=== PATIENT | female | born 1975 | race Caucasian/White ===

== ENCOUNTER 2017-05-15 06:39 | Inpatient (IN) | payer OTHER ==
[~2017-05-15] VITALS: Ht 182.9 cm; Wt 122.0 kg
--- NOTE | 2017-05-16 07:58 | HP ---
[facility] [address], [place] [address] Signed ADMISSION DATE: 05/15/2017 REASON FOR ADMISSION: Free intraabdominal air, probable perforated diverticulitis. HISTORY OF PRESENT ILLNESS: This 41-year-old obese woman is a chronic alcoholic, drinking at least 1 to 1-1/2 pints of vodka daily. On Saturday (today is Saturday), she began having vague abdominal pain mostly in the low pelvis. This worsened today to be inclusive of the right side of the abdomen. She presented to the emergency room, where she was evaluated by Dr. Durán, emergency room physician who found her to have an elevated white count of 15.7. Imaging studies were obtained including CT of the abdomen and pelvis, which showed numerous diverticula, pericolonic fat stranding, and free intraperitoneal air consistent with perforated diverticulitis. She is admitted for further evaluation and care. PAST MEDICAL HISTORY: Primarily significant for chronic alcoholism as well as smoking on a daily basis. She denies any prior history of abdominal surgery. She does note possible umbilical hernia. ALLERGIES: She has no known drug allergies. Last physician she saw is Dr. Guero Ribeiro, but has not seen him in at least 3 years. MEDICATIONS: She takes no medications chronically. REVIEW OF SYSTEMS: She denies any shortness of breath or chest pain. She has had no dysphagia or dysuria. Denies any hematemesis or blood per rectum. She has never had a colonoscopy. PHYSICAL EXAMINATION: GENERAL: Obese white woman who is quite anxious and unhappy. She does not show tremulousness or signs of alcohol withdrawal proper. HEENT: Her mucous membranes are dry. She is on her second liter of lactated Ringer's solution being infused. Trachea is midline. There is no cervical adenopathy. CHEST: Shows normal respiratory excursion without tachypnea. HEART: Regular without murmur. ABDOMEN: Obese and soft. She has not had generalized rigidity in any sense. Does have mild tenderness in the lower abdomen. I do not detect an umbilical hernia, but CT scan was reviewed, which confirmed a small umbilical hernia. CT scan was additionally reviewed confirming the findings as previously described including diverticular changes, inflammatory changes of the pelvis and sigmoid, and some free intraperitoneal air. Both Electronically Signed By: LEATHA BEAVER MD 05/16/17 0758 PATIENT NAME: OWEN ATKINS HISTORY AND PHYSICAL DATE OF : 75 PHYSICIAN: LEATHA BEAVER MD REPORT #: [id number] REPORT IS CONFIDENTIAL AND NOT TO BE RELEASED WITHOUT AUTHORIZATION [facility] [address], [place] [address] Signed kidneys are intact and the liver appears normal. EXTREMITIES: No clubbing, cyanosis, or edema. LABORATORY DATA: Show a white count of 15.7, hematocrit 39.6, and platelets 218,000. Chem profile, sodium of 131, potassium 3.3, chloride 94, and CO2 of 21. Magnesium is pending. Total bilirubin is 1.9, AST 40, ALT 39, alkaline phosphatase 99, albumin is 4.0, globulin 3.7, and lipase 7. Urinalysis shows a specific gravity of 1.022, otherwise normal. ASSESSMENT: The patient has perforated diverticulitis, most likely. The possibility of other perforated viscus is considered as well, but given her diverticular disease, inflammatory changes of the pelvic mesentery and free intraabdominal air, most likely this represents perforated diverticulitis. I discussed with her the pathophysiology of this problem as well as other lesions that could cause free intraperitoneal including perforated ulcer and so on. Discussed with her options of management. We also discussed that she may require urgent resection of the sigmoid with end colostomy with takedown of the colostomy in the future. We discussed a more favored approach in my experience of laparoscopy with pelvic and peritoneal washout and placement of drain. This would require that the inflammatory process not be giovana fecal peritonitis. If that were the case, laparotomy and open resection with end colostomy as described would be required. Additionally discussed that if this was a perforated ulcer, then repair and remedy of that would be needed as well. She understands this however, disheartening it is to consider the idea of a colostomy even if temporary, but agrees to proceed. In her situation of chronic alcoholism and smoking, she has increased risk of various complications, most notably alcohol withdrawal syndrome. She will be treated with Ativan at this time following the consent being obtained so as to minimize that possibility. Hospitalist consultation may ultimately be required as well. Additional fluid may be required. She is getting a second liter of fluid bolus at this time. Electronically Signed By: LEATHA BEAVER MD 05/16/17 0758 PATIENT NAME: OWEN ATKINS HISTORY AND PHYSICAL DATE OF : 75 PHYSICIAN: LEATHA BEAVER MD REPORT #: [id number] REPORT IS CONFIDENTIAL AND NOT TO BE RELEASED WITHOUT AUTHORIZATION [address] [address] Signed Laetha Beaver MD JM/MODL /[id number] cc: Dr. Luis Armando Ribeiro MD Electronically Signed By: LEATHA BEAVER MD 05/16/17 0758 PATIENT NAME: OWEN ATKINS HISTORY AND PHYSICAL DATE OF : 75 PHYSICIAN: LEATHA BEAVER MD REPORT #: [id number] REPORT IS CONFIDENTIAL AND NOT TO BE RELEASED WITHOUT AUTHORIZATION
--- NOTE | 2017-05-16 14:44 | OR ---
[facility] [address] [place], [place] [address] Signed DATE OF OPERATION: 05/15/2017 SURGEON: Leatha Beaver MD PREOPERATIVE DIAGNOSIS: Free intraabdominal air, probable perforated diverticulitis. POSTOPERATIVE DIAGNOSES: Generalized peritonitis with inflammatory fluid related to perforated diverticulitis, Hinchey stage III. PROCEDURE: 1. Laparoscopy with drainage of peritoneal abscess fluid. 2. Laparoscopic peritoneal lavage and placement of drain, left paracolic space. SURGEON: Leatha Beaver MD ANESTHESIA: General endotracheal (Korey Kinsey CRNA). INDICATION: This morbidly obese alcoholic white woman, presented to the emergency room with severe generalized abdominal pain. Her symptoms began on Saturday (day of operation Saturday) with lower abdominal pain, which has worsened over time to the point she could no longer stand it. She was found to have a white count of 15.[address] scan of the abdomen was performed showing free intraperitoneal air and inflammatory changes of the mesentery of the sigmoid as well as numerous diverticula. She was considered likely to have perforated diverticulitis. She has been fluid resuscitated given intravenous antibiotics and so forth as well as alcohol withdrawal prophylaxis and is to go to operation for laparoscopic evaluation, peritoneal lavage and drainage as able depending on extent of disease mindful that she may require sigmoid resection with end colostomy, particularly with a Hinchey stage IV problem as noted. She and her understand this and also understand the possibility of failure of a laparoscopic washout technique. It is likely that a sigmoid resection with primary anastomosis would be undertaken in the future, but for now control of sepsis is the primary goal. FINDINGS: Electronically Signed By: LEATHA BEAVER MD 05/16/17 1444 PATIENT NAME: OWEN ATKINS OPERATIVE REPORT DATE OF : 75 PHYSICIAN: LEATHA BEAVER MD REPORT #: [id number] REPORT IS CONFIDENTIAL AND NOT TO BE RELEASED WITHOUT AUTHORIZATION [facility] [address] [place], [place] [address] Signed She did have apparent material located throughout the abdomen actually with no sign of interloop adhesions. Indeed, the sigmoid colon was firm, fixed and likely the source of the perforation though actual free-flowing of stool and so forth was not forthcoming (therefore not Hinchey stage IV). Irrigation and washout of the abdomen were able to be undertaken as well as placement of drain, which was placed between the sigmoid and the bladder, which appeared to be a dominant problem. There were no other findings of concern. Notably, the cecum was mobile, and located towards the midline. DESCRIPTION OF PROCEDURE: The patient was brought to the operating room, given a general endotracheal anesthetic. A Gutierrez catheter was placed. Sequential compression device stockings were used and heparin subcutaneously administered. Antibiotic, she had been given was meropenem. The abdomen was prepared with chlorhexidine solution and draped sterilely. Initially, an infraumbilical incision was made, but found that she had an umbilical hernia and rather than transgressed that area, an incision was made cephalad to the umbilicus and the abdomen entered with a Peggy cannula technique allowing for pneumoperitoneum to level of 14 mmHg with carbon dioxide gas. Intraabdominal inspection showed purulent material in the lower abdomen dominantly, suctioned free for Gram stain and cultured. Examination of the upper abdomen showed no dense adhesions. The liver appeared normal as did the gallbladder. The omentum was quite generous. Examination of the lower abdomen showed inflammatory changes of the sigmoid and diverticular stigmata, but no sign of fecal contamination proper. An epigastric incision was made and the camera replaced at that site and with one hand manipulation through the umbilical (supraumbilical) port site, the omentum was moved about and body position change made with adjustment of the table to allow for better visualization. Subsequently, a right lower quadrant 5 mm port was placed and I went to the patient's right side of the abdomen and did two hand manipulation of the omentum and sigmoid area. Irrigation was used to clear the infected appearing inflammatory fluid. This included the pelvis. The sigmoid was dense, firm, inflamed and no free-flowing enteric contents were noted. It was ultimately found that adherence to the left bladder horn was found. With blunt dissection, this was , but no forthcoming abscess fluid particularly. The irrigation was then undertaken of the upper abdomen, both on the left upper and right upper quadrant areas clearing the inflammatory fluid completely. Through right side at the 5 mm trocar site, a 7 mm flat Ryder drain was placed and attenuated between the sigmoid and the bladder inferiorly. Close inspection of the mesentery of the sigmoid showed no sign of abscess or undrained fluid collection. The small bowel loops were normal. The cecum was rather floppy and free. The terminal ileum was normal. The appendix was not visualized. The trocars removed under direct visualization after complete lavage of the abdomen. The Electronically Signed By: LEATHA BEAVER MD 05/16/17 1444 PATIENT NAME: OWEN ATKINS OPERATIVE REPORT DATE OF : 75 PHYSICIAN: LEATHA BEAVER MD REPORT #: [id number] REPORT IS CONFIDENTIAL AND NOT TO BE RELEASED WITHOUT AUTHORIZATION [facility] [address] [place] [address] Signed drain was secured to the skin with nylon suture. The supraumbilical fascial incision was reapproximated with interrupted 0 Vicryl suture. All wounds were copiously irrigated with saline solution and skin closed with interrupted 3-0 Vicryl. Steri-Strips were applied. She was transferred to recovery room in good condition having suffered no complication. BLOOD LOSS: Minimal. MD IVAN Cardozo/VERNONL /[id number] cc: Dr. Durán [facility] Ryan Ribeiro MD Electronically Signed By: LEATHA BEAVER MD 05/16/17 1444 PATIENT NAME: OWEN ATKINS OPERATIVE REPORT DATE OF : 75 PHYSICIAN: LEATHA BEAVER MD REPORT #: [id number] REPORT IS CONFIDENTIAL AND NOT TO BE RELEASED WITHOUT AUTHORIZATION
--- NOTE | 2017-05-18 20:06 | DS ---
[facility] [address] [place], [place] [address] Signed ADMISSION DATE: 05/15/2017 DISCHARGE DATE: 05/17/2017 REASON FOR ADMISSION: This 41-year-old white woman had three days of increasing generalized abdominal pain. She presented to the emergency room where a CT scan was performed showing generalized free air and suspicion of perforated diverticulitis. She was admitted for further evaluation and care. PAST MEDICAL HISTORY: Of special note, her past medical history is significant for chronic alcoholism for which she takes 1/2 pints of vodka daily as well as persistent smoking. PHYSICAL EXAMINATION: GENERAL: Large obese, white woman, who is anxious and quite uncomfortable. HEENT: Mucous membranes are dry and trachea midline. CHEST: Clear. HEART: Regular without murmur. ABDOMEN: Obese, but without sign of ascites, marked tenderness throughout. EXTREMITIES: Showed no clubbing, cyanosis, or edema. LABORATORY DATA: White count was elevated. HOSPITAL COURSE: She has fluids resuscitated given intravenous antibiotics, parenteral pain medication, DVT prophylaxis and so forth. She underwent laparoscopy where she was found to have generalized peritonitis with purulent material for which she underwent laparoscopic drainage and lavage. Close inspection confirmed that the sigmoid colon was the likely source of the problem. There is no evidence of perforated viscus, otherwise. She did not have a Hinchey stage IV appearance. Therefore, a drainage procedure with a drain placed to the lateral aspect of the sigmoid where the most intense inflammation was noted, was undertaken. She immediately postoperatively felt quite a bit better. Broad-spectrum antibiotic meropenem was used. Transition to Cipro and Flagyl was initiated. Consultation with medical moth proofer (hospitalist), Dr. Sutton was undertaken, who outlined a rational and thoughtful plan for alcohol detoxification. This included oral Librium and other agents. By the second postoperative day, the patient was feeling quite well and demanded to be Electronically Signed By: LEATHA BEAVER MD 05/18/172005 PATIENT NAME: OWEN ATKINS DISCHARGE SUMMARY DATE OF : 75 PHYSICIAN: LEATHA BEAVER MD REPORT #: [id number] REPORT IS CONFIDENTIAL AND NOT TO BE RELEASED WITHOUT AUTHORIZATION [facility] [address] [place], [place] [address] Signed able to smoke. This was not allowed based on medical and the hospital policy ideals. She was convinced to stay and transition to the regular nursing floor where she might be discharged tomorrow with oral antibiotics, but by the end of the afternoon, but no longer be cooperative in this way. In my own opinion, she did not seem to have delirium in anyway, only a strong will and incessant desire to smoke and probably also drink alcohol. She left against medical advice. The risks were explained to her and to her . Later her returned to the hospital and I discussed with her more fully the situation. She does have a drain in place. I did write for prescriptions of Percocet #30 as well as Augmentin 500 mg b.i.d. #14. I had intended Cipro and Flagyl, but given her proclivity for persistent alcohol use, Flagyl will be an unwise choice. Given the disulfiram like reaction, she might endure with persistent alcohol intake. They are welcome and encouraged to return if and when they should change her mind for further inpatient management. I will see her in the office in 1-2 weeks for removal of the drain in the meantime however. DISCHARGE DIAGNOSES: 1. Perforated diverticulitis with generalized peritonitis and purulent material, but without fecal contamination. 2. Status post laparoscopic evaluation including peritoneal lavage and placement of drain. 3. Chronic alcoholism. 4. Incessant and chronic tobacco use. 5. Obesity. MD IVAN Cardozo/MODL /[id number] Electronically Signed By: LEATHA BEAVER MD 05/18/172005 PATIENT NAME: OWEN ATKINS DISCHARGE SUMMARY DATE OF : 75 PHYSICIAN: LEATHA BEAVER MD REPORT #: [id number] REPORT IS CONFIDENTIAL AND NOT TO BE RELEASED WITHOUT AUTHORIZATION [address] [address] Signed cc: rBina Sutton MD Electronically Signed By: LEATHA BEAVER MD 05/18/172005 PATIENT NAME: OWEN ATKINS DISCHARGE SUMMARY DATE OF : 75 PHYSICIAN: LEATHA BEAVER MD REPORT #: [id number] REPORT IS CONFIDENTIAL AND NOT TO BE RELEASED WITHOUT AUTHORIZATION
== END 2017-05-17 15:30 | disposition left against medical advice (07) | DRG 392 ==
LOC: ED 06:39 → CCU 09:41
PROVIDERS: ADMIT Surgery
PROC: 0W9G40Z Drainage of Peritoneal Cavity with Drainage Device, Percutaneous Endoscopic Approach (ICD-10-PCS; principal; 2017-05-16)
PROC: 3E1M38Z Irrigation of Peritoneal Cavity using Irrigating Substance, Percutaneous Approach (ICD-10-PCS; 2017-05-16)
DX: K57.20 Diverticulitis of large intestine with perforation and abscess without bleeding (principal); F10.20 Alcohol dependence, uncomplicated; E66.9 Obesity, unspecified; F17.200 Nicotine dependence, unspecified, uncomplicated; E83.42 Hypomagnesemia; E87.6 Hypokalemia; Z53.21 Procedure and treatment not carried out due to patient leaving prior to being seen by health care provider; Z68.36 Body mass index [BMI] 36.0-36.9, adult
CPT/HCPCS: 00320; 36415; 74177; 80048; 80053; 81001; 82247; 82465; 83615; 83690; 83735; 84100; 84478; 84550; 84703; 85025; 85610; 87070; 87075; 87205; 94640; 96361; 96365; 96375; 96376; 99291; 99406; J1170; J1644; J2060; J2185; J2250; J2270; J2370; J2405; J2704; J3010; J3360; J3411; J3475; J3480; J7030; J7060; J7120; Q9967

== ENCOUNTER 2017-06-23 03:16 | Inpatient (IN) | payer OTHER ==
[~2017-06-23] VITALS: Ht 182.9 cm; Wt 116.8 kg
--- NOTE | 2017-06-23 06:16 | NUR ---
42YR OLD WOMAN ADMITTED FROM ER VIA STRETCHER TO ROOM 114 ACCOMPANIED BY . ASSISTED INTO BED AND POSITIONED FOR COMFORT WITH PILLOWS, ORIENTED TO ROOM AND CALL LIGHT, ORDERS NOTED.
--- NOTE | 2017-06-23 06:29 | NUR ---
PT WAS MEDICATED WITH MORPHINE 4MG IV FOR 10/10 PAIN IN LEFT LOWER BACK. DESCRIBES BEING STUCK WITH ICE PICK. REPOSITONED FOR COMFORT WITH PILLOWS. SITTING AT BEDSIDE. DENIES FURTHER NEEDS.
--- NOTE | 2017-06-23 06:36 | NUR ---
REPORTS PAIN IS BETTER, SITTING UP ON EDGE OF BED NOW TALKING WITH . CONTINUES TO HAVE MILD NAUSEA BUT DENIES NEED FOR MEDICATION AT THIS TIME. SBA INTO BATHROOM TO VOID 300ML DARK YELLOW URINE WITH RED BLOOD, STATES SHE STARTED HER PERIOD. PADS PROVIDED. RATES PAIN 6/10 NOW. CALL LIGHT IN EASY REACH.
--- NOTE | 2017-06-23 07:43 | NUR ---
PATIENT WIDE AWAKE IN BED, POSITION. APPEARS RESTLESS. RATES PAIN 8/10 ON PAIN SCALE. ADMINISTERED 4MG IV MORPHINE. PATIENT REQUESTING MORE ZOFRAN, TOO SOON TO ADMINISTER MORE. APPEARS VERY ANXIOUS. DISCUSSED SALINAS PLACEMENT AND PATIENT STATED " I JUST CAN'T RIGHT NOW, LAST TIME THEY PLACED IT IN SURGERY". WILL DISCUSS POC WITH DR. BEAVER.
--- NOTE | 2017-06-23 08:00 | NUR ---
PATIENT APPEARS RESTLESS AND ANXIOUS, COMPLAINING OF PAIN AND NAUSEA. REPORTED PATIENT'S COMPLAINTS VIA TELEPHONE. ADMINISTERING MORPHINE Q2HRS, APPEARS EFFECTIVE SHORT TERM ABOUT 15 MIN THEN PATIENT IS COMPLAINING OF PAIN AGAIN. NEW ORDERS FOR NICOTINE PATCH, SEMICONDUCTOR WAFER INSPECTOR MORPHINE, PHENERGAN. ALSO MAY HOLD OFF ON PLACING SALINAS CATHETER. VS STABLE. CONT PULSE OX ON. PATIENT SATURATION 95% ON RA. PATIENT RETURNED DEMONSTRATION WITH IS.
--- NOTE | 2017-06-23 08:04 | NUR ---
PATIENT IN BED, WHITEBOARD UPDATED, ROOM TIDIED. PATIENT STATES SHE DOES NOT NEED ANYTHING AT THIS TIME.
--- NOTE | 2017-06-23 09:01 | NUR ---
SET OUT TOOTHBRUSH, WASHCLOTH, ETC. IN BATHROOM FOR THE NEXT TIME PATIENT GETS UP.
--- NOTE | 2017-06-23 10:00 | NUR ---
STARTED SECOND IV TO RIGHT WRIST, 20 G. TOLERATED WELL. RUNNING MERREM THROUGH SECOND LINE.
--- NOTE | 2017-06-23 12:19 | NUR ---
PATIENT UP TO BATHROOM, PAIN WELL CONTROLLED WITH JEWELLERY DESIGNER. APPEARS LESS ANXIOUS. STATES " I ALREADY FEEL LESS CRANKY WITH THE NICOTINE PATCH ON". PATIENT REPORTS ITS BEEN 36 DAYS SINCE LAST DRINK OF ALCOHOL. 02 SATURATION 94% RA
--- NOTE | 2017-06-23 16:40 | NUR ---
PATIENT TOLERATING BROTH AND YOGURT WELL. MAY HAVE CLEAR AND FULL LIQUIDS THAT POOR EASY WITH NO FIBER. PAIN WELL CONTROLLED WITH TODDLER CAREGIVER. PATIENT USING IS Q1 HR WHILE AWAKE. FAMILY AT BEDSIDE. APPEARS CALM AND COMFORTABLE.
--- NOTE | 2017-06-23 19:00 | NUR ---
BEDSIDE REPORT RECEIVED FROM KYLIE BOYER. PT AWAKE, SITTING UP IN BED. IV MERREM INFUSING, PT USING PLASTIC BLOCK BOILER RELINER PUMP, STATES PAIN IS "GOOD". SPO2 95%, HR 95. WILL CONTINUE TO MONITOR. CALL LIGHT IN REACH.
--- NOTE | 2017-06-23 19:01 | NUR ---
RECHECKED TEMP AXILLIARY 99.1 PATIENT SKIN COOL TO TOUCH. PATIENT REPORTS DRINKING WARM BROTH IN REGARDS TO TEMP 102 THAT WAS CHARTED WITH VITAL SIGNS.
--- NOTE | 2017-06-23 20:10 | NUR ---
ASSISTED PT TO RESTROOM FOR 300 ML VOID, PT TOLERATED WELL. PT ANXIOUS. ASSESSMENT COMPLETE. PT BACK IN BED, PTS LUNGS CLEAR THROUGHOUT ALL LOBES, IVF AND MARKETING PROJECT COORDINATOR INFUSING WNL, LINES FLUSH WELL. BOWEL TONES HYPOACTIVE, PRESENT THROUGHOUT. ABDOMEN TENDER IN LLQ, SOFT. PT DENIES NAUSEA. PT STATES PAIN IS 3/10 IN LOWER BACK, LEFT SIDE. PT STATES PAIN IS TOLERABLE. CSM INTACT BILATERALLY UPPER AND LOWER EXTREMITIES, NO EDEMA NOTICED. PT HAS CALL LIGHT IN REACH, LYING IN BED, RT TO DELIVER BREATHING TREATMENT.
--- NOTE | 2017-06-23 20:16 | NUR ---
VITALS AND I&OS DONE AND CHARTED. PT HAS A TEMP OF 101.3 AND B\P OF177/89. INFORMED HER RN JAKE. GOT HER FRESH WATER . BEDSIDE TABLE AND CALL LIGHT WITHIN REACH.
--- NOTE | 2017-06-23 20:25 | NUR ---
PHONE CALL TO DR. BEAVER TO UPDATE ON PT, DAY SHIFT STATED TEMPERATURE WAS 102, REASSESSED 101.[address] BEAVER ORDERED TYLENOL 650 MG Q64 PRN FEVER. UPDATED ON BP 177/89 MAP 112. NO ADDITIONAL ORDERS.
--- NOTE | 2017-06-23 20:57 | NUR ---
PT COMPLAINING OF NAUSEA AT THIS TIME, REQUESTING PHENERGEN, STATES ZOFRAN DOES NOT WORK. 12.5 MG PHENERGEN ADMINISTERED IN 20 ML NS DILUTION. PT TOLERATED WELL, STATES SHE ALREADY FEELS BETTER. PT DOING BREATHING TREATMENT AT THIS TIME, CALL LIGHT IN REACH.
--- NOTE | 2017-06-23 22:23 | NUR ---
PT RESTING IN BED, ANTIBIOTIC INFUSING WNL. PT ANXIOUS, NICOTINE PATCH HAS FALLEN OFF, WILL REPLACE. PT CONTINUES TO VOID CONSISTENTLY, STATES SOME PAIN WITH URINATION "CRAMP". PT STATES SHES NOT ABLE TO CONTROL STREAM. WILL CONTINUE TO MONITOR, LIGHTS OFF IN ROOM, CALL LIGHT IN REACH.
--- NOTE | 2017-06-23 22:30 | NUR ---
NICOTINE PATCH IN PLACE, EMPTIED PT'S COMMODE, 1500 ML URINE OUT, HEMATURIA NOTED. PT BACK IN BED, DROWSY, LIGHTS OFF IN ROOM. IVF AND ANTIBIOTIC INFUSING WNL. CALL LIGHT IN REACH.
--- NOTE | 2017-06-24 01:29 | NUR ---
VITALS AND I&OS DONE. PT STATES SHE IS CRANKY , TIRED AND HUNGRY. I ASKED HER IF SHE WANTED SOME JELLO? SHE SAID YES PLEASE. I GAVE HER TWO JELLOS. BEDSIDE TABLE AND CALL LIGHT WITHIN REACH.
--- NOTE | 2017-06-24 01:32 | NUR ---
IN PT ROOM, IV MERREM INFUSION COMPLETE. PT DROWSY, BACK TO SLEEP AFTER RN SALINE LOCKED IV IN RIGHT HAND. NO ADDITIONAL REQUESTS AT THIS TIME, CALL LIGHT IN REACH.
--- NOTE | 2017-06-24 01:50 | NUR ---
PT ASSESSMENT COMPLETE. PT STATES SHE IS STILL UNCOMFORTABLE, HOT, UNABLE TO SLEEP. GAVE PT COOL WASH CLOTH AND ICE PACK. WHEEZES HEARD THROUGHOUT PT'S LUNGS, PT DENIES SOB. BOWEL TONES ACTIVE, ABDOMEN SOFT, TENDERNESS NOTED IN LEFT UPPER QUADRANT. BROUGHT PT FRESH ICE WATER, NO ADDITIONAL REQUESTS AT THIS TIME, CALL LIGHT IN REACH, LIGHTS OFF IN ROOM.
--- NOTE | 2017-06-24 02:36 | NUR ---
NEW BAG OF IVF HUNG, PT AWAKENS WITH RN ENTERING ROOM, SPO2 95% ON ROOM AIR. PT BACK TO SLEEP, SNORING, CALL LIGHT IN REACH. LIGHTS BACK OFF IN ROOM.
--- NOTE | 2017-06-24 04:53 | NUR ---
IN PT ROOM FOR ANTIBIOTIC ADMINISTRATION. PT AWAKENS TO VOICE, UP TO COMMODE FOR VOID, EMPTIED COMMODE. PT STATES URINATION IS BECOMING MORE COMFORTABLE, CONTINUES TO HAVE AIR WITH URINATION. PT NAUSEOUS, VOMITS 100 MLS, ADMINISTERED 12.5 MG PRN PHENERGEN. PT COMPLAINING OF BRISCOE, STATES THAT TYLENOL HELPED, ADMINISTERED PRN TYLENOL. PT BACK IN BED, ASSESSMENT COMPLETE AT THIS TIME, LUNGS SOUND CLEAR THROUGHOUT ALL LOBES, PT 98% ON ROOM AIR, BOWEL TONES ACTIVE THROUGHOUT ALL QUADRANTS, ABDOMEN SOFT, PT STATES PAIN IS 2/10 IN LEFT SIDE, BACK. CALL LIGHT GIVEN TO PT. LIGHTS OFF IN ROOM. ICE WATER BROUGHT TO PT. IVF AND ANTIBIOTICS INFUSING WNL, IV SITES FLUSH WELL.
--- NOTE | 2017-06-24 06:44 | NUR ---
PT USING RESEARCH NEUROPSYCHOLOGIST PUMP THROUGHOUT NIGHT, FEBRILE AT BEGINNING OF SHIFT AND THROUGHOUT PREVIOUS DAY, RECEIVED PRN TYLENOL X 2. PT CONTINUES TO USE RESEARCH NEUROPSYCHOLOGIST PUMP THROUGHOUT SHIFT. UP TO COMMODE FOR LARGE VOIDS INDEPENDENLTY, GAIT STEADY. PT CONTINUES TO RECEIVE IV ANTIBIOTICS IV FLUIDS. IV SITES WNL, FLUSH WELL. PT RECEIVED PRN PHENERGEN X 2 IV, ONE EPISODE OF EMESIS. PT SLEPT MINIMALLY THROUGHOUT NIGHT. BOWEL TONES ACTIVE, ABDOMEN SOFT THROUGHOUT NIGHT. PAIN WITH URINATION HAS IMPROVED THROUGHOUT SHIFT.
--- NOTE | 2017-06-24 07:12 | NUR ---
RECIEVED BEDSIDE REPORT FROM KYLIE JOSEPH. PT AWAKE, ALERT. IN BED AT THIS TIME.
--- NOTE | 2017-06-24 08:52 | NUR ---
PATIENT TOOK HER SHOWER. INDEPENDENT. LINENS CHANGED.
--- NOTE | 2017-06-24 09:51 | NUR ---
PT REPORTS PAIN TO ABDOMEN AND LOWER BACK 3/10 WITH USE OF AUTOMATION ARCHITECT, REPORTS THIS IS A TOLERABLE LEVEL OF PAIN FOR HER. DENIED NAUSEA AT THIS TIME. REMAINS ON RA, OXYGEN SATURAION LEVEL 92%, AND HAS EXPIRATORY WHEEZES AUDIBLE IN ALL LUNG BOOKER.
--- NOTE | 2017-06-24 10:00 | NUR ---
RN INTO ROOM PULSE OXIMETRY METER ALARMING SPD ALERT. PT VERY AXIOUS AT THIS TIME. SHE WITH ROLL SIDE TO SIDE ON BED, CRYING AND RUBING HER EYES, SHE SPEAKS QUICKLY AND IN SHORT SENTENCES, SHE SAID "I DONT WANT TO BE HERE, BUT I WANT TO GET BETTER, BUT I WANT TO GO HOME, AND I AM HUNGRY AND I DONT LIKE FEELING HUNGRY, I JUST WANT TO FEEL BETTER" RN ASKED "WHAT CAN I DO TO HELP?" SHE SAID SHE DIDNT KNOW AND APPEAR MORE ANXIOUS, RN SAID "AM I MAKING THINGS WORSE?" PT SAID "NO", RN ASKED " WOULD YOU LIKE TO TAKE A WALK AND GET OUT OF THIS ROOM" PT SAID "THAT MIGHT HELP" PT AND RN AMBULATED FULL LAP ON MED/SURG UNIT AND DOWN MAIN RAHMAN TO WINDOWS TO VIEW [place]. PT REPORTS FEELING BETTER. PT RETURNED TO ROOM AND RESTING BACK IN BED, RN INSTRUCTED PT TO FEEL FREE TO CALL IF SHE WOULD LIKE TO GO FOR ANOTHER WALK.
--- NOTE | 2017-06-24 10:54 | NUR ---
PT SITTING UP IN BED, LOOKING OUT WINDOW. DENIED NEEDS AT THIS TIME. REPORTED THAT PAIN IS WELL CONTROLLED WITH STEM ASSEMBLER.
--- NOTE | 2017-06-24 12:32 | NUR ---
REPLACED PT'S IVF BAG, OLD ONE WAS EMPTY. CHANGED IV TUBING.
--- NOTE | 2017-06-24 15:12 | NUR ---
DR. BEAVER IN TO SEE PT, DISCUSSED PLAN OF CARE/TREATMENT. DR. BEAVER INDICATED THAT HE FEELS THAT SURGERY SHOULD BE DONE TOMORROW. DISCUSSED RISKS AND BENEFITS WITH PT. PT VERBALIZED UNDERSTANDING, AGREED TO SURGERY TOMORROW. DR. BEAVER INDICATED THAT HE WOULD HAVE PT TAKE BOWEL PREP TODAY.
--- NOTE | 2017-06-24 15:55 | NUR ---
PT IN BED, ALERT, ANXIOUS. GAVE LORAZAPAM 0.5 MG IV PRN. SET UP DILAUDID REPORTS DEVELOPER, KYLIE AREVALO VERRIFIED ORDER AND SETTINGS ON REPORTS DEVELOPER.
--- NOTE | 2017-06-24 17:21 | NUR ---
Patient takes no chronic medications
--- NOTE | 2017-06-24 17:36 | NUR ---
PT AMBULATED IN HALLS. ONCE TO MAIN RN STATION, PT BECAME NAUSEATED, AND HAD AN EPISODE EMESIS. GAVE PHENERGAN 12.5 MG IV PRN. PT REPORTS THAT SHE NO LONGER FEELS NAUSEATED. WILL CONTINUE TO MONITOR.
--- NOTE | 2017-06-24 18:32 | NUR ---
PT ON CLEAR LIQUID DIET, DRINKING BOWEL PREP, WILL HAVE SURGERY TOMORROW AM. HAD MORPHINE ROOFING MACHINE TENDER, CHANGED TO DILAUDID ROOFING MACHINE TENDER THIS AFTERNOON AFTER PT REPORTED HEADACHES POSSIBLY RELATED TO MORPHINE. PT HAD EPISODE OF NAUSEA AND EMESIS THIS EVENING, RECIEVED PROMETHAZINE 12.5 MG IV PRN, NO FURTHER C/O NAUSEA OR EMESIS. HAS 2 IVs TO RIGHT FOREARM. D5LR @ 125 CC/HR.
--- NOTE | 2017-06-24 20:57 | NUR ---
PT LAYING IN BED WATCHING TV. PT HAD SOME GREEN COLORED EMESIS, REPORTS FEELING "BETTER," AFTER EMESIS, GAVE ZOFRAN FOR NAUSEA. PT RATES PAIN AT 5/10, REPORTS PAIN MEDICATION IS COVERING PAIN WELL. PT WORKING ON FINISHING BOWEL PREP GATORADE, STATES "I DONT KNOW IF I CAN FINISH THIS BEFORE MIDNIGHT;" PT EDUCATED ON THE IMPORTANENCE OF ATTEMPTING TO FINISH, PT VERBALIZED UNDERSTANDING. PT TOOK SOME SIPS OF GATORADE WHILE RN IN ROOM. PT HAS NO FURTHER NEEDS AT THIS TIME.
--- NOTE | 2017-06-24 22:06 | NUR ---
pt appears to be sleeping rr wnl and unlabored. lights and tv off in room.
--- NOTE | 2017-06-24 22:53 | NUR ---
pt up to bsc to void. urine mixed with liquid stool in commode. pt states she did not have a bm. pt working on last bottle of bowel prep. no nausea at this time. using dye house hand appropriatley. pt was asleep when entering room, pt woke to rn in room, oxygen saturation was in the mid 80's on ra, placed pt on 2l via nc. dye house hand vial replaced. call light in reach. no further needs.
--- NOTE | 2017-06-25 00:11 | NUR ---
IV CONNECTION TO THE PIGTAIL LOOSENED UP AND BLOOD BACKED UP IN TUBING AND LEAKED ON THE BED AND GOWN. PT VERY ANXIOUS ABOUT BLOOD. EDUCATED PT ON HOW IV'S WORK AND THE MECHANISM OF WHAT HAPPENED. PT NOT EASILY RE-DIRECTED. PT CRYING AND STATING "I JUST CANT HANDLE ALL OF THIS," "WHAT DID I DO TO MAKE THIS HAPPEN." GAVE ATIVAN FOR ANXIETY. TIGHTENED CONNECTION ON CATHETER AND REDRESSED IV. IV FLUSHES WELL, NO LEAKING, PT HAS NO COMPLAINS OF PAIN AT THE SITE. BEDDING AND GOWN CHANGED.
--- NOTE | 2017-06-25 02:47 | NUR ---
RN NOTIFIED RE TEMP.
--- NOTE | 2017-06-25 04:21 | NUR ---
PT HAS HAD SEVERAL BOWEL MOVEMENTS TONIGHT. LIQUID WITH SMALL SOLID CHUNKS, BROWN. PT RATES PAIN AT 4/10, ALERT AND ORIENTED X4. WOKE EASILY TO RN IN ROOM. STARTED INFUSING MERREM IN RIGHT UPPER FOREARM IV, IV INFILTRATED SHORTLY AFTER STARTING. WILL PLACE NEW IV.
--- NOTE | 2017-06-25 05:59 | NUR ---
PRE OP WIPES DONE.
--- NOTE | 2017-06-25 08:45 | NUR ---
CALLED OR CHARGE NURSE VERHIFIED IF COULD ADMINISTER PO FLAGYL, VERBALIZED OKAY. PATIENT APPEARS ANXIOUS, PROVIDING PATIENT WITH REASSURANCE. CONSENT ON CHART FOR COLONOSCOPY. VS STABLE. AFEBRILE
--- NOTE | 2017-06-25 09:12 | HP ---
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 HISTORY OF PRESENT ILLNESS: This obese 42-year-old white woman, who is known to me from the past, had undergone laparoscopy on May 15, 2017, for perforated diverticulitis with free air. She underwent peritoneal lavage and placement of drain and promptly was much better. The drain was removed a few days following her initial operation. She had discharged AMA the following day because she had felt so well. She was identified as a chronic alcoholic at that time and surprisingly, and happily has been free of alcohol use for now 37 days she says. She continues to smoke cigarettes however. I had seen her back in followup for drain removal and had anticipated a colonoscopy be performed to rule out concurrent and neoplastic disease. A CT of the abdomen and pelvis was performed on June 13, as she had continuing left lower abdominal pain to assess for progression or occult abscess related to her original diverticulitis problem. She was noted to have colonic wall thickening and some adjacent extraluminal gas consistent with contained perforation with improvement of free peritoneal air and the fluid collection measuring now 10 cm in the left hemipelvis posterior to the descending and sigmoid colon. A small fat containing supraumbilical hernia was noted as well. I was unaware of this result. I am reading it for the first time today. She presented to the emergency room in the divisional merchandising manager hours today, evaluated by Dr. Arriola and found to have some tenderness in the area as well as abnormal urinalysis. She also reports now for the past 3 to 4 days pneumaturia. She clearly has clinically a colovesical fistula with urinary tract infection. She is admitted for further evaluation and care. She has had no fever or chills, only a feeling of some weakness. Urinalysis showed a blood of 250 with 0 rbc's on micro, greater than 50 white cells per high-power field, squames 1+ and culture is pending. Her pain is mostly in the left flank area actually. It is really located above the iliac crest posteriorly. She is concurrently having her menstrual period. She has had no fever or chills. PAST MEDICAL HISTORY: Includes: 1. Obesity. Electronically Signed By: LEATHA BEAVER MD 06/25/17 0912 PATIENT NAME: OWEN ATKINS HISTORY AND PHYSICAL DATE OF : 75 PHYSICIAN: LEATHA BEAVER MD REPORT #: [id number] REPORT IS CONFIDENTIAL AND NOT TO BE RELEASED WITHOUT AUTHORIZATION [facility] [address], [place] [address] Signed 2. Chronic alcoholism, now in remission 37 days. 3. Chronic smoking. PHYSICAL EXAMINATION: GENERAL: She is alert, oriented, AND nontoxic. HEENT: Trachea is midline. She has no overt tachypnea. CHEST: Shows inspiratory and expiratory wheezing, which was low-grade. HEART: Regular without murmur. ABDOMEN: Obese, but soft. There is mild tenderness in the left lower abdomen. EXTREMITIES: Showed no clubbing, cyanosis, or edema. LABORATORY DATA: Show white count of only 6.1, platelets 369,000. Differential is normal. Hematocrit is 37.8. Chem profile is normal. Alkaline phosphatase elevated at 145, globulin 3.6, lipase 29, beta-hCG is negative. Urinalysis is as previously described. Currently, the images from the CT scan are not available to me. It would appear that there is a persistent abscess without systemic toxicity and now development of a colovesical fistula. We discussed this in detail. At present, she needs intravenous antibiotics as a suppressant to her urinary tract infection and ultimately will need sigmoid colectomy, repair of fistula of the bladder, and so forth. She is not systemically toxic from this episode it appears. Liquid intake will be allowed at present, but we would like for clearance of the colon itself to allow for colectomy and repair as appropriate. I will review the CT scan in more detail when the images are available. The fluid collection described was 10 cm in length and only a few in width and they represent an interloop fluid collection rather than a true well-formed abscess. In any case, the colovesical fistula will need to be repaired without question. Concurrent resection of the sigmoid hopefully with primary anastomosis would be anticipated as well. MD IVAN Cardozo/MODL /[id number] Electronically Signed By: LEATHA BEAVER MD 06/25/17 0912 PATIENT NAME: OWEN ATKINS HISTORY AND PHYSICAL DATE OF : 75 PHYSICIAN: LEATHA BEAVER MD REPORT #: [id number] REPORT IS CONFIDENTIAL AND NOT TO BE RELEASED WITHOUT AUTHORIZATION [address] [address] Signed cc: Petty Arriola MD Electronically Signed By: LEATHA BEAVER MD 06/25/17911 PATIENT NAME: ANTWON ATKINSJAVED ALVARADO HISTORY AND PHYSICAL DATE OF : 75 PHYSICIAN: LEATHA BEAVER MD REPORT #: [id number] REPORT IS CONFIDENTIAL AND NOT TO BE RELEASED WITHOUT AUTHORIZATION
--- NOTE | 2017-06-25 09:16 | NUR ---
PT HAS GONE TO SURGURY. PICKED UP ROOM. COMPLETE LINEN CHANGE. AND I AND O S
--- NOTE | 2017-06-25 10:14 | NUR ---
06/25/17 Carley Agarwal 0756 PT ARRIVED WITH ORAL AIRWAY IN PLACE, RN NEEDED TO DO CHIN THRUST TO MAINTAIN AIRWAY. PT NOT REPONDING TO STIMULI. PILLOW REMOVED FROM BEHIND HEAD, HEAD TILTED BACK AND CHIN THRUST USED. 1000 CHIN THRUST NO LONGER NEEDED. ORAL AIRWAY IN PLACE. RESP EVEN. O2 SAT 100% on 10L VIA MASK.
--- NOTE | 2017-06-25 11:00 | NUR ---
PT BACK TO ROOM FROM COLONOSCOPY PROCEDURE AT THIS TIME. BEDSIDE REPORT FROM [facility]. PT ALERT AND ORIENTED REPORTS PAIN 01/17 REQUEST TO HAVE SPORTS NUTRITIONIST ATTACHED. SAID OK, AND OK TO HAVE CLEAR LIQUIDS ORALLY FOR NOW.
--- NOTE | 2017-06-25 11:06 | OR ---
[facility] [address], [place] [address] Signed DATE OF OPERATION: 06/25/2017 SURGEON: Leatha Beaver MD PREOPERATIVE DIAGNOSIS: Clinical colovesical fistula with known diverticular disease, assess for neoplasm. POSTOPERATIVE DIAGNOSIS: Diverticular changes of sigmoid. No evidence of polyps or neoplasm. PROCEDURE: Total colonoscopy to cecum. ANESTHESIA: Propofol infusion, Leatha Kwok CRNA. INDICATION: This 42-year-old white woman has undergone laparoscopic drainage of a perforated diverticulitis several weeks ago. A plan for colonoscopy and ultimately sigmoid resection was anticipated. However, she had recurrent left upper abdominal symptoms undergoing a recent CT scan on June 13, which showed a fluid collection which appeared to be improved in the region of the sigmoid. She subsequently developed pneumaturia and obviously a urinary tract infection and was seen in the emergency room on June 23, where a CT scan was repeated showing inflammatory changes in the sigmoid and clinical development of a colovesical fistula. She does admit to pneumaturia and urinalysis was consistent with that. Definitive sigmoid resection was anticipated and I had planned on doing it actually today. However, concern is maintained after review of the CT scan for possible neoplasm of the sigmoid. Such a finding would modify the operative extent of resection and so forth and on that basis, colonoscopy is recommended instead of definitive excision at least today. The risks of bleeding, infection, perforation, and so forth were reviewed with her regarding colonoscopy. She wished to proceed. FINDINGS: The prep was good. She had a MiraLAX base prep and oral antibiotics, anticipating partial colectomy today. Sedation with propofol was definitely indicated on the basis of her underlying anxiety and so forth. The colonoscopy did not show signs of cancer or neoplasm in any way. There were diverticular changes. There was no sign of acute inflammatory change. Complete colonoscopy was undertaken to the cecum without problem. Electronically Signed By: LEATHA BEAVER MD 06/25/17 1106 PATIENT NAME: OWEN ATKINS OPERATIVE REPORT DATE OF : 75 PHYSICIAN: LEATHA BEAVER MD REPORT #: [id number] REPORT IS CONFIDENTIAL AND NOT TO BE RELEASED WITHOUT AUTHORIZATION [facility] [address], [place] [address] Signed There are no sign of polyps or other issue. DESCRIPTION OF PROCEDURE: The patient was brought to the endoscopy suite and placed in the lateral decubitus position, given propofol infusional sedation. Digital rectal examination was normal. The Olympus video colonoscope was passed in the rectum and manipulated throughout the colon. Minimize sedation of air was incorporated based on the known colovesical fistula. The scope was advanced beyond the sigmoid, ultimately to the cecum. The ileocecal valve and appendiceal orifice appeared normal. Scope was withdrawn from that point. Examination throughout upon withdrawal of scope showed no sign of neoplasm or polyps or colitis. Diverticular changes and angulation deformity of the sigmoid was once again reaffirmed. The rectum was normal. Scope was removed and the patient was taken to the recovery room in good condition. CONCLUDING DIAGNOSIS: No evidence of neoplasm accounting for colovesical fistula or previous perforation. PLAN: We will plan for sigmoid resection and definitive repair of the colovesical fistula in the near future. MD IVAN Cardozo/MODL /[id number] cc: MD Ryan Padilla MD Electronically Signed By: LEATHA BEAVER MD 06/25/17 1106 PATIENT NAME: OWEN ATKINS OPERATIVE REPORT DATE OF : 75 PHYSICIAN: LEATHA BEAVER MD REPORT #: [id number] REPORT IS CONFIDENTIAL AND NOT TO BE RELEASED WITHOUT AUTHORIZATION
--- NOTE | 2017-06-25 11:20 | NUR ---
PT UP TO BEDSIDE COOMODE VOIDED 350 ML RED YELLOW URINE. MERLIN ESPINAL PRIMARY NURSE INTO PT ROOM, MERLIN ESPINAL GIVEN UPDATE/REPORT. V/S TO BE TAKEN.
--- NOTE | 2017-06-25 11:41 | NUR ---
PATIENT BACK TO FLOOR FROM RECOVERY, VS STABLE. TOLERATING BROTH. IV MERAPENUM INFUSING. CHANGED DILUADID SYRINGE TO FIRST BREAKER FEEDER. RATES PAIN 6/10 ON PAIN SCALE. UP TO BATHROOM, VOIDING WELL. CALL LIGHT WITHIN REACH. AT BEDSIDE.
--- NOTE | 2017-06-25 12:06 | NUR ---
PT JUST CAME BACK FROM SERGURY. TOOK VITALS AND PUT PULSE OX BACK ON. TOOK PT FRESH WATER, DIET SPRIT, CHICKEN BROTH. PT HAS CALL LIGHT IN REACH
--- NOTE | 2017-06-25 12:43 | NUR ---
PATIENT RESTING EASY IN BED WATCHING TELEVISION. STATES " I AM HAVING A STABBING PAIN THE LEFT LOWER SIDE. NOTED PATIENT HAS NOT BEEN PUSHING ACCOUNTING METHODS ANALYST. REMINDED AND ENCOURAGED PATIENT TO PUSH FOR PAIN MEDICAITON AND DISCUSSED PAIN SCALE. RATES PAIN 6/10 ON PAIN SCALE. GOAL IS TO GET PAIN TO ATLEAST A 3 OR 4.
--- NOTE | 2017-06-25 14:23 | NUR ---
PATIENT FEELING NAUTIOUS, 450 ML EMESIS. APPEARS TO BE BROTH COLORED. PATIENT STATES " I PROBABLY JUST DRANK TOO FAST". PATIENT UP AND DOWN TO BSC, URINE APPEARS TO HAVE STOOL MIXED WITH IT, PATIENT STATES " I THINK IT'S COMING OUT OF MY VAGINA." PATIENT ALSO ON MENTRUAL CYCLE. PAIN WELL CONTROLLED WITH LEAD JAVA DEVELOPER ARCHITECT. PATIENT APPEARS TO BE PUSHING BUTTON BETTER. ADMINISTERED 12.5 MG IV PHENERGAN.
--- NOTE | 2017-06-25 15:21 | NUR ---
PT WAS LAYING IN BED WITH HER ALONDRA BY HER SIDE. SHE WAS OBVIOUSLY IN SOME DISCOMFORT, AND HAD JUST COME BACK FROM A SCOPE. THEY BOTH COMMENTED THEY ARE WAITING FOR DR BEAVER-DIFFICULT TO WAIT. I FELT WE HAD A GOOD VISIT, SEEMED THANKFUL I WAS PRESENT. PT REQUESTED PRAYER, WILL FOLLOW NEEDED
--- NOTE | 2017-06-25 16:18 | NUR ---
TOOK PT ON A WALK. TOOK TO THE BR
--- NOTE | 2017-06-25 17:05 | NUR ---
CALLED BACK RE-ORDERED ATIVAN 0.5MG-1MG EVERY FOUR HOURS PRN ANXIETY
--- NOTE | 2017-06-25 18:39 | NUR ---
PATIENT HAD COLONOSCOPY DONE TODAY, PLAN FOR SURGERY TOMORROW. PAIN WELL CONTROLLED ON DILAUDID AERODYNAMICS TEACHER. PATIENT USING BSC FOR FREQUENT URINATION. NEW ATIVAN ORDER FOR ANXIETY.
--- NOTE | 2017-06-25 19:08 | NUR ---
ADMINISTERED 1MG ATIVAN FOR ANXIOUSNESS. PATIENT TERAFUL AND RESTLESS.
--- NOTE | 2017-06-25 20:27 | NUR ---
PATIENT REFUSED TO HAVE BP DONE BY THIS DIRECTOR OF AUTOMATION. C/O THE CUFF IS VERY TIGHT AND STATED HAVE OTHER NURSE TO DO IT. KYLIE HARRY NOTIFIED.
--- NOTE | 2017-06-25 21:04 | NUR ---
PT SITTING UP IN BED, WATCHING TV. VISITING WITH DAUGHTER. PT RATES PAIN AT 5/10, REPORTS DILAUDID RACK WORKER IS COVERING PAIN WELL. PT HAS FRESH WATER AT BEDSIDE. MEROPENEM INFUSING. DENIES NAUSEA. PT HAS NO FURTHER NEEDS. CALL LIGHT IN REACH.
--- NOTE | 2017-06-25 22:42 | NUR ---
PT APPEARS TO BE SLEEPING. LIGHTS AND TV OFF IN ROOM.
--- NOTE | 2017-06-25 23:01 | NUR ---
PT CALLED NURSES STATION SOBBING. ASKED FOR "SOMETHING FOR MY PAIN, ITS REALLY BAD RIGHT NOW." PT'S NATASHAANCE ARRIVED A FEW MINUTES AGO. RN IN TO ASSESS PT. PT SITTING UP IN BED, PLAYING ON PHONE AND VISITING WITH HER FIANCE, NO APPARENT DISTRESS AT THIS TIME. PT VERY TALKATIVE. RATES PAIN IN HER RIGHT KNEE AT 7/10, GAVE DILAUDID PO FOR PAIN. SHOWED FIANCE WHERE THE BLANKETS AND PILLOW IS FOR THE SOFA BED, HE WILL BE STAYING THE NIGHT. ALSO BROUGHT ICE CREAM PER PT REQUEST. CALL LIGHT IN REACH.
--- NOTE | 2017-06-26 01:45 | NUR ---
PT CALLED REQUESTING TO REMOVE CONTINUOUS PULSEOX OR GET A NEW FINGER PROBE. ADVISED PT THAT SHE NEEDS TO HAVE IT ON BECAUSE OF THE PROJECT MANAGEMENT PROFESSOR PUMP. NEW FINGER PROBE IS IN PLACE AND PULSEOX READS 92%. BROUGHT PT FRESH WATER, PT HAS NO FURTHER REQUESTS.
--- NOTE | 2017-06-26 03:22 | NUR ---
pt up to bsc. enrollment management coordinator vial changed and antibiotics infusing. pt back in bed. no further needs. call light in reach.
--- NOTE | 2017-06-26 06:49 | NUR ---
PT WOKE WHEN RN ENTERING ROOM. PT DENIES NEEDS AT THIS TIME. CALL LIGHT IN REACH.
--- NOTE | 2017-06-26 08:00 | NUR ---
PT AWAKE IN BED, ALERT AND ORIENTED. RATING ABD PAIN 5/10, USING DILAUDID CLIENT SERVICES DIRECTOR APPROPRIATELY. DENIES NAUSEA AT THIS TIME. SATTING 98% ON RA. PT REPORTS PASSING GAS "THROUGH MY PEE HOLE" "HAVEN'T HAD A REGULAR BOWEL MOVEMENT SINCE I GOT HERE, IT HAS ALL BEEN THROUGH MY BLADDER." SMALL AMOUNT OF GI BLOOD NOTED IN URINE, PT STATES THAT SHE IS ON HER MENSES." PT FARSHAD CLEAR LIQUIDS, REFUSED TRAY THIS AM, DRINKING WATER. PT INDEPENDENT TO BSC IN ROOM. IV INFUSING WNL IN LEFT FOREARM. CALL LIGHT WITHIN REACH.
--- NOTE | 2017-06-26 09:38 | NUR ---
new bag of iv fluid hung at this time
--- NOTE | 2017-06-26 10:05 | NUR ---
PT INDEPENDENT IN ROOM TO BSC. WATCHING TV AT THIS TIME. PRINTED OUT EDUCATION ON ADMISSION DIAGNOSES AND GAVE TO PT TO READ. CALL LIGHT WITHIN REACH.
--- NOTE | 2017-06-26 11:04 | NUR ---
PT IS RESTING PEACEFULLY. CALL LIGHT IS IN REACH.
--- NOTE | 2017-06-26 12:40 | NUR ---
PT DRINKING ENSURE. SITTING IN BED VISITING WITH FAMILY. USING SKI TOP TRIMMER APPROPRIATELY, RATING ABD PAIN 4/10, DENIES NAUSEA OR OTHER CONCERNS. CALL LIGHT WITHIN REACH.
--- NOTE | 2017-06-26 14:40 | NUR ---
PT HAS BEEN ANXIOUS AND TEARFUL OFF AND ON THROUGHOUT SHIFT. REQUESTED ATIVAN AT THIS TIME, GIVEN. DAUGHTER AND AT BEDSIDE. PT EDUCATED ON PLAN FOR SURGERY TOMORROW, NPO AND SHOWER ORDERS. CALL LIGHT WITHIN REACH.
--- NOTE | 2017-06-26 16:41 | NUR ---
PT TOOK HIBACLEANSE SHOWER AT THIS TIME WITH MINIMAL ASSIST PER DR. BEAVER'S ORDERS. LINENS CHANGES BY SENIOR DIRECTOR CREATIVE SERVICES BEL. PT AMB BACK TO BED. USING CONTAMINATION CONSULTANT APPROPRIATELY. CALL LIGHT WITHIN REACH.
--- NOTE | 2017-06-26 17:30 | NUR ---
VS TAKEN. INCREASED BP. PT JUST FINISHED SHOWERING AND UP AT SIDE OF BED. STATES SHE HAS NOT USED POSTAL SERVICE SECTIONAL CENTER MANAGER SINCE SHOWERING, ENC TO USE IF FEELS NEED TO. CLEAR LIQUIDS AT BEDSIDE. VS DISCUSSED WITH RN TAKING CARE OF PT.
--- NOTE | 2017-06-26 17:46 | NUR ---
PT RESTING SOUNDLY IN BED WITH EYES CLOSED, RESP EVEN AND UNLABORED.
--- NOTE | 2017-06-26 18:13 | NUR ---
PT RESTING IN BED. STATES NO NEEDS AT THIS TIME. PT STATES SHE IS MAD AND UPSET, BUT DOES NOT WANT TO TALK ABOUT IT. TOLD PT TO CALL IF SHE NEEDED ANYTHING. CALL LIGHT IN REACH.
--- NOTE | 2017-06-26 19:36 | NUR ---
BEDSIDE REPORT RECIEVED FROM CHASIDY RN. PT IS IN BED WATCHING TV. AT BEDSIDE. SPORTS MARKETING COORDINATOR PUMP FUNCTIONING. FLUIDS @ 125/HR. PAIN AT CONSISTANT 4-5. NO OTHER NEEDS AT THIS TIME. CALL LIGHT WITHIN REACH. PERSONAL ITEMS AT BEDSIDE.
--- NOTE | 2017-06-26 20:30 | NUR ---
on assessment ov iv the sight was red and hard. the patient indicated pain while flushing. called erika garcia to start new iv.
--- NOTE | 2017-06-26 20:50 | NUR ---
PT'S IV INFILTRATED, DRAW MACHINE OPERATOR IN TO PLACE NEW IV. PT VERY ANXIOUS AND TEARFUL. PT HAD AN ARGUMENT TONIGHT WITH HER DAUGHTER WITH RN AND IN ROOM. ALERT AND ORIENTED X4 WHEN ASKING HER DIRECT QUESTIONS BUT SHE IS FORGETFUL, AND GETS ANXIOUS AND AGITATED WHEN ATTEMPTING TO RE-ORIENT. ATIVAN GIVEN FOR ANXIETY AND AGITATION.
--- NOTE | 2017-06-26 21:03 | NUR ---
PT PLACED ON 2L VIA OXYMASK DUE TO DESATING INTO MID 80'S WHEN DRIFTING OFF TO SLEEP. DAUGHTER IN ROOM AT THIS TIME.
--- NOTE | 2017-06-26 22:00 | NUR ---
PT IV PUMP KEEPS BEEPING FOR A DISTAL OCLUSSION. FLUSH IV AND BACK PRIME. EDUCATED ON KEEPING ARM STRAIGHT. NO OTHER NEEDS AT THIS TIME. CALL LIGHT IN REACH. LADIES' LOCKER ROOM ATTENDANT BUTTOM WITHIN REACH. PERSONAL ITEMS AT BEDSIDE.
--- NOTE | 2017-06-27 00:11 | NUR ---
PT IV HUB AT THE CATHETER/PIGTAIL CONNECTION LOOSE, BLOOD BACKED UP INTO THE TUBING AND ALSO LEAKED ONTO THE BED AND PT'S GOWN. TIGHTENED CONNECTION AND REDRESSED IV. IV NOW FLUSHES WELL, NO LEAKING, AND PT DENIES PAIN AT THE SITE. PT VERY ANXIOUS IN REGARDS TO BLOOD. SHE IS CRYING AND STATING "WHAT DID I DO TO MAKE THIS HAPPEN?" "I CANNOT FIGURE OUT WHY IM BLEEDING EVERYWHERE." PT EDUCATED ON MECHANISM OF IV, AND WHAT HAPPENED WITH IT TO SHOW HER THAT IT WAS NOT HER FAULT AND THAT THE IV WAS FIXED AND WORKING PROPERLY. PT AGITATED AT TIMES, DOES NOT RE-DIRECT EASILY. PT CONTINUED TO CRY OUT. PT ALERT AND ORIENTED X4 WHEN ASKED DIRECT QUESTIONS, BUT FORGETFUL AT TIMES, SEEMS TO GET AGITATED AT RN WHEN RE-ORIENTING. ATIVAN GIVEN FOR ANXIETY.
--- NOTE | 2017-06-27 00:22 | NUR ---
PT CALLED BECAUSE IV WAS LEAKING. CAME IN THE ROOM TO BLOOD ON ARM AND BED. CHANGED DRESSING, CHANGED SHEETS. PT WAS ANXIOUS ABOUT IV LEAKING. PT WAS CRYING. REASSURED PT EVERYTHING WAS OK AND THIS HAPPENS SOMETIMES. THAT IT WASNT HER FAULT AND WE WOULD TAKE CARE OF IT. GAVE P[Y 2MG ATIVAN. PT WANTED TO SIT UP IN THE CHAIR. IV INFUSING BUT IS EASILY OCCLUDED. HAVE TO KEEP REMINDING PT TO KEEP ARM STRAIGHT.
--- NOTE | 2017-06-27 01:25 | NUR ---
PT PUMP WAS BEEPING. STRAIGHTED PT'S ARM TO RELIEVE OCCLUSION. PT WAS ASLEEP AN O2 SATURATION WAS @ 85% WHEN I ENTERED THE ROOM. APPLIED O2 MASK @ 2L. O2 SATURATION WAS 97%. PT SEEMED A LITTLE CONFUSED WHEN SHE WOKE UP. SHE THOUGHT I WAS SOMEONE ELSE AND SAID SHE HAD A DREAM OF ME WITH MY SON IN THE STREET. CALL LIGHT WITHIN REACH. N OFURTHER NEEDS AT THIS TIME.
--- NOTE | 2017-06-27 01:59 | NUR ---
WHEN CHECKING ON THE PT SHE SEEM ANXIOUS AND CONFUSED ABOUT WHERE SHE WAS. SHE STATED, "I DONT KNOW WHY MY ISNT HERE, HE WAS SUPPOSE TO BE HERE AT 0630 FOR MY SUGERY." I INFORMED AND REASSURED THE PT THAT IT WAS ONLY 0130 IN THE MORNING AND IT WASNT TIME FOR HER TO BE HERE OR HER SURGERY. SHE CONTINUED TO CRY AND POINT THINGS OUT IN THE ROOM THAT WAS THE SAME AND ASKED IF SHES STILL IN THE SAME PLACE SHE WAS YESTERDAY. I REASSURED HER SHE WAS STILL AT [facility] AND THAT WE ARE CONTINUALLY MONITORING HER AND KEEPING HER SAFE. SHE SEEMS CONFUSED ABOUT HER SUROUNDINGS. I SAT WITH THE PT AND USED THERAPUITIC COMMUNICATION TO TRY AND CALM HER DOWN. I OPENED TH BLINDS SO SHE COULD SEE OUT THE WINDOW AND OFFERED TO TAKE HER ON A WALK. SHE AGREED THE WALK MIGHT HELP. WE DID ONE LAP AROUND MED SURG AND THE PT HAD TO USE THE BATHROOM SO WE HEADED BACK. THE PT IS ALL SETTLED IN BED NOW WITH THE TV ON. I TOLD HER I WOULD CHECK ON HER OFTEN AND MAKE SURE SHE HAS EVERYTHING SHE NEEDS. SHE IS CALM AT THIS TIME.
--- NOTE | 2017-06-27 03:35 | NUR ---
PT APPEARS TO BE SLEEPING. RR WNL AND UNLABORED. SPO2 98% ON 2L VIA NC, HR 79.
--- NOTE | 2017-06-27 03:40 | NUR ---
PT WAS THIRSTY. GAVE LEMON MOUTH SWABS. CHAIGED GOWN TO SNAP INSTEAD OF VELCRO. COMPLAINED OF PAIN ON LEFT SIDE WHEN BREATHING IN DEEP. PT STILL A LITTLE CONFUSED BUT LESS ANXIOUS. PLANS ON WATCHING TV. CALL LIGHT WITHIN REACH AND PERSON ITEMS AT BEDSID.
--- NOTE | 2017-06-27 04:23 | NUR ---
PT HAS BEEN NPO SINCE MIDNIGHT. TERRAZZO LABORER PUMP BEING USED. IV IN RIGHT UPPER ARM. FLUIDS INFUSSING. PT WAS UPMOST OF THE NIGHT ANXIOUS, CONFUSED AND CRYING. GAVE ADIVAN 2MG X2. SURGERY IN THE MORNING. INDEPENDENT IN THE ROOM. PRE-OP CHECKLIST COMPLETE.
--- NOTE | 2017-06-27 05:08 | NUR ---
PT ALERT AND ORIENTED X4 THIS MORNING. SHE IS PLEASENT AT THIS TIME. NEW DILAUDID VIAL IN BAG MACHINE ADJUSTER. PT LAYING IN BED. WATCHING TV. NO FURTHER NEEDS AT THIS TIME. CALL LIGHT IN REACH.
--- NOTE | 2017-06-27 05:43 | NUR ---
pt complained of nausea. gave zofran iv for nausea. pt now playing on her personal tablet and watching tv. no further needs. call light in reach.
--- NOTE | 2017-06-27 06:03 | NUR ---
VITALS DONE AND CHARTED. NOTIFIED RN PIERO OF HIGH B\P AND TEMP 99.3 BEDSIDE TABLE AND CALL LIGHT WITHIN REACH. PT NEEDS NOTHING MORE AT THIS TIME.
--- NOTE | 2017-06-27 08:00 | NUR ---
INSERTED NEW IV TO LEFT WRIST 20 G PATIENT TOLERATED WELL. PATIENT APPEARS VERY ANXIOUS, ADMINISTERED 2MG IV ATIVAN. PATIENT CONTINUES TO PACE IN HALLS, STATES " I AM TIRED OF THIS FUCKING PLACE". PROVIDED PATIENT WITH REASSURANCE. PATIENT KEEPS ASKING TO SMOKE. DISCUSSED WITH DR. BEAVER IF POSSIBLE FOR PATIENT TO HAVE NICOTINE GUM OR SOMETHING TO HELP WITH PATIENT'S ANXIETY. VERBAL ORDER TO ADMINISTER 1-2 MG ONE TIME ORDER FOR IV ATIVAN NOW.
--- NOTE | 2017-06-27 09:00 | NUR ---
1MG ATIVAN IV ADMINISTERED, EFFECTIVE. PATIENT ABLE TO LAY BACK IN BED AND REST WITH EYES CLOSED, SNORING. PATIENT AWAKES WITH VERBAL STIMULI. APPLIED 1L OXIMASK 02 SATURATIONS 95% RR 14. PATIENT RESTING EASY. AT BEDSIDE. IV MEREPENUM DONE INFUSING, PATIENT NOW CONNECTED TO LR WITH STRAIGHT TUBING. UPDATED FAMILY ETA 20 MIN.
--- NOTE | 2017-06-27 09:38 | NUR ---
VERBAL REPORT TO LORRAINE RN, PATIENT SNORING. LORRAINE AWOKE PATIENT TO NOTIFY PATIENT GOING TO SURGERY. PATIENT AWOKE AND NODDED HEAD AND THEN WENT BACK TO SLEEP. ONCE OUT IN RAHMAN PATIENT SAT UP WHILE SURGERY NURSES MOVING BED, PATIENT AGGRESSIVE AND DEMANDING TO GET UP, NURSES STANDING BY FOR FALL RISK CONCERNS, PATIENT STATED " YOU WANT SOME OF ME?" WHILE LOCKING EYE CONTACT WITH NURSE THAT WAS BEHIND HER, DEMANDING THAT SHE ANSWER HER QUESTION. NURSE GENTLY REASSURED PATIENT THAT SHE WAS TRYING TO ASSIST. PATIENT APPEARED TO BE EXSCALATING. PATIENT RIPPED HER 02 SATURATION SESNOR OFF OF FINGER, THIS NURSE INTERVINED WHEN PATIENT STARTED RIPPING OUT IV, PATIENT RECEPTIVE. HOWEVER SLAMMED DOOR IN SURGERY NURSE FACE WHILE YELLING PROFANITY AT THE NURSE. THIS NURSE TOOK OVER, APPEARS TO CALM. BACK TO BED AFTER BATHROOM, REFUSED TO LAY BACK, NOW SITTING UP IN BED WHILE NURSES PUSH PATIENT DOWN RAHMAN.
--- NOTE | 2017-06-27 09:49 | NUR ---
PATIENT VISUALIZED FROM NURSE'S STATION TO HAVE BLOOD DRIPPING FROM HER LEFT ARM AND BLOOD ON THE BED LINEN. WHEN RN ENTERS THE ROOM PATIENT APPEARS TO BE IN A TRANCE AND IS MOVING THE IV CATHETER IN A CIRCULAR MOTION LETTING THE FLUID SOAK THE BED LINEN. LEFT WRIST IV SITE APPEARS DRIPPING WITH BRIGHT RED BLOOD. COTTON AND COBAN IS PLACED AND MD IS AT THE BED SIDE SPEAKING WITH THE PATIENT. BED LINEN IS CHANGED.
--- NOTE | 2017-06-27 13:00 | NUR ---
VERBAL REPORT TO PIERRE ESPINAL. PLAN FOR PATIENT TO TRANSITION TO CCU AFTER SURGERY.
--- NOTE | 2017-06-27 13:20 | NUR ---
ALL PT BELONGINGS MOVED INTO ROOM 128 FROM ROOM 114.
--- NOTE | 2017-06-27 14:37 | NUR ---
06/27/17 1437 Germania Nash 1421-PATIENT ARRIVED TO PACU ON 6L MASK O2 SAT 94% NONAROUSABLE ORAL AIRWAY IN PLACE. RR 30. SR. PATIENT RECEIVED PRECEDEX BY UX DEVELOPER DESIGNER BEFORE ARRIVAL. DRESSING TO ABDOMEN CDI EUGENE DRAIN IN PLACE. CENTRAL LINE IN PLACE TRIPLE LUMEN XRAY TO BE CALLED FOR VERIFICATION. SALINAS CATHETER IN PLACE.
--- NOTE | 2017-06-27 16:35 | NUR ---
FULL REPORT GIVEN BY DIRECTOR OF REGULATORY AFFAIRS. VITALS STABLE AT THIS TIME. PT NOT ALERT AND ORIENTED, PT STILL SLEEPING SOUNDLY, MEDICATED.
--- NOTE | 2017-06-27 19:35 | NUR ---
PT AWAKE AT 1840 REQUESTING PAIN MEDICATION. PT TEARFUL, REQUESTS I CALL HER ALONDRA AND ASK HIM TO COME INTO THE HOSPITAL. ALONDRA WAS CALLED AND STATED HE WOULD BE HERE SHORTLY. PT GIVEN 0.5 MG DIALUDID FOR 10/10 ABD PAIN. REORIENTED PT TO STATUS AFTER SURGERY. PT CRYING STATES "I'M SO HAPPY". ALONDRA ARRIVED IN ICU AT ABOUT 1905. PT COMFORTED BY SPOUSE. 1914 PT C/O 10/10 ABD PAIN, 0.5 MG IV DILAUDID GIVEN. PT SPEECH IS CLEARING, BETTER ABLE TO EXPRESS SELF AND NEEDS. PT UNDERSTANDS THAT SHE HAS RESTRAINTS IN PLACE FOR SAFETY.
--- NOTE | 2017-06-27 19:37 | NUR ---
REPORT RECEIVED FROM PIERRE ESPINAL. PT AWAKE IN BED, WRIST RESTRAINTS IN PLACE, AT BEDSIDE, PT IS MILDLY ANXIOUS AT THIS TIME. RECENTLY GIVEN PAIN MEDICINE BY DAY NURSE. RESTING HR 90'S, RR16, SPO2 90-92% ON ROOM AIR. WILL CONTINUE TO MONITOR.
--- NOTE | 2017-06-27 20:03 | NUR ---
PT AGREES TO WEAR O2, OXYMASK APPLIED PT STATES "I DONT WANT THE LITTLE HORNS GOING INTO MY NOSE" OF THE NASAL CANNULA, 4L BRINGS SATS UP TO 97%. PT BECOMING MORE ANXIOUS AND AGITATED, ENCOURAGED TO TRY TO REST AND RELAX. REMAINS AT BEDSIDE HELPING TO CALM AND REASSURE PT.
--- NOTE | 2017-06-27 20:30 | NUR ---
DAUGHTER IN TO SIT AT BEDSIDE, IS GOING HOME. PT REQUESTS PAIN MEDICINE, 1MG IV DILAUDID GIVEN FOR 10/10 ABDOMINAL PAIN. PT IS LESS ANXIOUS OVER THE LAST HALF HOUR, SEEMS TO BE MORE AGREEABLE TO CARE AT THIS TIME.
--- NOTE | 2017-06-27 22:30 | NUR ---
PT GIVEN 1MG IV DILAUDID FOR 13/10 ABDOMINAL PAIN.
--- NOTE | 2017-06-27 23:06 | NUR ---
PT REPOSITIONED WITH PILLOWS ONTO LEFT SIDE. EUGENE EMPTED 20 ML SEROSANG FLUID, URINE OUTPUT CONTINUES TO BE 35ML/HR. SOMEWHAT TEARFUL AT THIS TIME "I'M NOT A MONSTER, PLEASE DONT BE AFRAID OF ME. IM NOT USED TO HOSPITALS" PT REASSURED AND ENCOURAGED TO GO TO SLEEP. LIES BACK AND APPEARS RESTFUL.
--- NOTE | 2017-06-27 23:51 | NUR ---
PT CALLS OUT WITH SMALL DARK BROWN EMESIS, FACE WIPED AND PT GIVEN 4MG IV ZOFRAN, ALSO 1MG IV DILAUDID FOR 8/10 ABDOMINAL PAIN. STATES BEFORE SHE HAD EMESIS HER PAIN WAS 2/10. WILL CONTINUE TO MONITOR.
--- NOTE | 2017-06-28 00:10 | NUR ---
PT STATES SHE IS NO LONGER NAUSEATED AFTER ZOFRAN GIVEN, ALTHOUGH SOMEWHAT RESTLESS AND ANXIOUS, STARTING TO CRY.
--- NOTE | 2017-06-28 00:40 | NUR ---
1MG IV HALDOL GIVEN FOR PT ANXIETY/AGITATION, HAS NOT BEEN ABLE TO SLEEP YET TONIGHT. ALSO GAVE 1MG IV DILAUDID FOR 8/10 ABDOMINAL PAIN.
--- NOTE | 2017-06-28 01:30 | NUR ---
PT HAS BEEN RESTFUL SINCE LAST MEDS GIVEN, HR 90'S RR 26 SPO2 95% WITH OXYMASK ON AT 2L.
--- NOTE | 2017-06-28 03:30 | NUR ---
PT CALLS OUT FOR PAIN MEDICINE, 1MG IV DILAUDID GIVEN AND PT ATTEMPTS TO LIE BACK AND GO TO SLEEP. URINE OUTPUT IS IMPROVED SOME, 50ML/HR OVER THE LAST FEW HOURS.
--- NOTE | 2017-06-28 06:47 | NUR ---
PT WAS ABLE TO REST THROUGH THE NIGHT AFTER GIVEN ONE DOSE OF IV HALDOL, ALSO RECEIVED 1MG IV DILAUDID FOR PAIN EVERY ONE TO TWO HOURS. URINE OUTPUT WAS 35-50ML/HR THROUGH THE NIGHT, VSS. WAS FRIENDLY AND COOPERATIVE THROUGH THE NIGHT ALTHOUGH ANXIOUS AND TEARFUL BRIEFLY AT TIMES. WRIST RESTRAINTS REMOVED THIS MORNING PT IS AWAKE AND COOPERATIVE.
--- NOTE | 2017-06-28 08:52 | NUR ---
CENTRAL LINE INTACT, NO REDNESS OR SWELING NOTED, PT DENIES PAIN AT SITE, FLUIDS INFUSE EASILY, BLOOD RETURN OBTAINED FROM EACH PORT. PT DENIES NAUSEA AND SOB.
--- NOTE | 2017-06-28 11:30 | NUR ---
IV SITE DC'D DUE TO NOT BEING ABLE TO FLUSH. SITE WNL, PT DENIES PAIN. NO REDNESS NOTED. PT ALERT AND CALM.
--- NOTE | 2017-06-28 11:52 | NUR ---
PT AWAKE AND ALERT, REPORTS PAIN IS 2/10 "THIS IS THE BEST IT HAS BEEN SINCE SURGERY". PT SITTING IN BED WATCHING TV, DENIES NAUSEA AND SOB AT THIS TIME. PT IS CALM AND POLITE, DENIES FEELINGS OF ANXIETY, STATES "I JUST FEEL A LITTLE STIR CRAZY". PT BEHAVIOR HAS BEEN APPROPIATE ALL SHIFT.
--- NOTE | 2017-06-28 12:40 | NUR ---
PT ABLE TO AMBULATE TO CHAIR FROM BED. FARSHAD ACTIVITY WELL. PT ABLE TO COUGH AND CLEAR SECRETIONS EASILY. PT VITALS WNL. PT DENIES NAUSEA, PAIN, AND SOB AT THIS TIME. PT FARSHAD CLEAR LIQUIDS WELL, HAS HAD 400 ML WATER AND IS NOW TRYING SIPS OF 7-UP.
--- NOTE | 2017-06-28 16:21 | NUR ---
PT REQUESTED BROTH, ABLE TO FARSHAD WELL. PT DENIES NAUSEA, SOB AND PAIN AT THIS TIME. PT COOPERATIVE AND POLITE. PT RESTING IN BED DOZING OFF AND ON.
--- NOTE | 2017-06-28 19:48 | NUR ---
REPORT RECEIVED FROM PIERRE ESPINAL. PT IS RESTING WITH EYES CLOSED, RESP EVEN AND UNLABORED.
--- NOTE | 2017-06-28 21:15 | NUR ---
IN TO DO ASSESSMENT. BOWEL SOUNDS ACTIVE, EUGENE IN PLACE DRAINING SEROSANG FLUID, DRESSING TO ABD CDI, PT MOVING SELF IN BED AND MOVING WELL, STATES PAIN IS 2/10, IMPROVED SINCE LAST NIGHT, SIPPING ON WATER NO OTHER REQUESTS AT THIS TIME.
--- NOTE | 2017-06-28 21:29 | NUR ---
RT IN TO DO BREATHING TX
--- NOTE | 2017-06-28 23:26 | NUR ---
PT HAS BEEN SLEEPING THE LAST COUPLE HOURS, RESP EVEN AND UNLABORED.
--- NOTE | 2017-06-29 00:50 | NUR ---
PT UP TO SIT AT EDGE OF BED FOR A BIT, UNCOMFORTABLE IN BED. ASSESSMENT DONE. DENIES NAUSEA/SOB. RATES PAIN 2/10 WITH MOVEMENT. BACK TO BED TO TRY TO SLEEP MORE.
--- NOTE | 2017-06-29 02:19 | NUR ---
PT RESTING WITH EYES CLOSED RESP EVEN AND UNLABORED.
--- NOTE | 2017-06-29 04:30 | NUR ---
HAS BEEN SLEEPING WELL THE LAST FEW HOURS, RESP EVEN UNLABORED, RR 22.
--- NOTE | 2017-06-29 05:32 | NUR ---
AWAKENS WITH SUDDEN PAIN, TEARFUL, HAS BEEN SLEEPING. ENCOURAGED TO PUSH PIECE MARKER SMALL ARMS BUTTON, PT CALMS AND TRIES TO RELAX.
--- NOTE | 2017-06-29 08:16 | NUR ---
PATIENT AWAKE UPON INTITIAL ASSESSMENT. PT STATES HER PAIN IS MODERATELY WELL CONTROLLED WITH AID OF THE DILAUDID WREATH AND GARLAND MAKER HAND. PT STATES HER PAIN GOAL IS DOWN TO A 2-3. MIDLINE INCISION IS C/D/I WITH MEPILEX DRESSING, NO DRAINAGE. LEFT SIDE EUGENE DRAINING SEROSANGINOUS FLUID AND EMPTIED AT THIS TIME FOR 25 ML. PT NOW SITTING UP AT EDGE OF BED VISITING WITH HER S/O. SALINAS DRAINING YELLOW URINE. PT ORDERED A CLEAR LIQ TRAY - WILL SEE ABOUT POTENTIALLY ADVANCING DIET TODAY AND INCREASING ACTIVITY. LAST BP 145/69. PT MODERATELY ANXIOUS AT BASELINE AT THIS TIME BUT TOLERATING ENVIRONMENT FAIR. PT HAVING PRODUCTIVE COUGH AND WORKING ON SPLINTING ABDOMEN TO HELP DECREASE INCISIONAL PAIN. PLAN MADE WITH PATIENT REGARDING ACTIVITIES FOR THE DAY. CONTINUE TO MONITOR.
--- NOTE | 2017-06-29 09:47 | NUR ---
PATIENT UP TO CHAIR AROUND 0900 TO EAT CLEAR LIQUID TRAY BREAKFAST. PT NOT VERY HUNGRY HOWEVER, AND BARELY TOUCHED ANY OF HER FOOD. PT WANTING TO GET BACK TO BED AROUND 0935. EUGENE DRAINED AGAIN FOR 50 ML MORE SANGINOUS FLUID. PT WANTING TO REST IN BED FOR A WHILE. WINDOW CURTAIN DARKENED PER REQUEST AND DOOR SHUT. PT REMAINS ON CONT PULSE OX WHILE ON DREDGE OR BARGE SHORE HAND. PT ALSO WEARING OXYMASK AT 3 L WHILE RESTING DUE TO SP02 DROPPING DOWN TO THE MID 80s WHILE PT IS AWAKE IF SHE IS OFF THE OXYGEN. CURRENTLY SP02 IS 98%. PT ENCOUARGED TO CONTINUE TAKING DEEP BREATHS AND COUGHING WITH THE SPLINTING METHOD. PT AGREEABLE. PT'S LEFT ROOM AT THIS TIME TO ALLOW PT TO REST. CONTINUE TO MONITOR CLOSELY. SALINAS PATENT DRAINING CLEAR YELLOW URINE IN GOOD QUANTITY.
--- NOTE | 2017-06-29 15:24 | NUR ---
PATIENT UP TO CHAIR SINCE LUNCH TIME. PT WAS GIVEN A BED BATH AND SALINAS CATH CARE PROVIDED. PATIENT BRUSHES OWN TEETH. PT THEN AMBULATED IN THE RAHMAN AND AROUND THE CCU DEPARTMENT AND TOLERATED THIS VERY WELL. DR. BEAVER IN TO SEE PATIENT AND ORDERS REC'D TO INCREASE DIET TO FULL LIQUIDS TOLERATED. PT WILL ALSO BE TRANSFERRED TO MED/SURG WITHOUT TELEMETRY. SALINAS CATH TO REMAIN IN PLACE TO ALLOW FOR BLADDER TO HEAL COMPLETELY S/P FISTULA. PT AGREEABLE AND KEPT UP TO DATE WITH ALL PLANS OF CARE. PT ON ROOM AIR IS CURRENTLY 99%. CONTINUE TO MONITOR.
--- NOTE | 2017-06-29 18:00 | NUR ---
PATIENT TOLERATING HER FULL LIQUID DIET WELL AT THIS TIME. PT NOTES SHE IS HAVING TO EAT SLOW BECAUSE OF FEELING HEART BURN IF SHE EATS TOO FAST. PATIENT CONTINUES TO HAVE A LOOSE, PRODUCTIVE COUGH WITH PHLEGM. MARKETING SALES SUPERVISOR SYRINGE CHANGED OUT AT THIS TIME. PT'S IN ROOM AND SUPPORTIVE. CONTINUE TO MONITOR.
--- NOTE | 2017-06-29 19:49 | NUR ---
SHIFT REPORT RECEIVED FROM KYLIE RICH. PT IS CURRENTLY WATCHING TV IN BED, DAUGHTER AT BEDSIDE. PT REQUESTS MORE ICE WATER. DILAUDID COOKER CLEANER INFUSING WNL. SALINAS IN PLACE. PT DENIES FURTHER NEEDS AT THIS TIME.
--- NOTE | 2017-06-29 20:36 | NUR ---
ASSESSMENT COMPLETED. PT IS ALERT/ORIENTED, RESTING IN BED AND WATCHING TV. SHE APPEARS AT EASE AT THIS TIME. PT JUST PUSHED CHECK WEIGHER BUTTON AND STATES PAIN IS CURRENTLY 2/10, HER PAIN GOAL IS 2-3/10. LUNGS SOUND CLEAR, SLIGHTLY DIM, 2L VIA OXYMASK IN PLACE. HR REGULAR. BOWEL TONES ACTIVE, DENIES NAUSEA, DENIES FLATUS. DRESSING TO ABDOMEN IS C/D/I, EUGENE TO LLQ, 25 ML SEROSANGUINOUS FLUID EMPTY, DRESSING AROUND SITE IS C/D/I. CENTRAL LINE INFUSING WNL, NO REDNESS/SWELLING NOTED AT SITE. PT REPORTS OCCASIONAL PRODUCTIVE COUGH. SALINAS PATENT, URINE APPEARS DILUTE YELLOW. NO FURTHER REQUESTS AT THIS TIME, PT HAS CALL LIGHT WITHIN REACH.
--- NOTE | 2017-06-29 21:27 | NUR ---
R.T. IN ROOM TO GIVE BREATHING TREATMENT AT THIS TIME.
--- NOTE | 2017-06-29 23:18 | NUR ---
PT APPEARS TO BE SLEEPING, NO APPARENT DISTRESS. 2L VIA OXYMASK IN PLACE, RESPIRATIONS EVEN AND UNLABORED, RR:16, SPO2:94%. HR:97. WILL CONTINUE TO MONITOR.
--- NOTE | 2017-06-30 01:01 | NUR ---
ASSESSMENT COMPLETED. PT RELAXED AT THIS TIME. NEW GRAPHICS EDITOR SYRINGE, CLEARED TOTAL:5.7, PT USING GRAPHICS EDITOR APPROPRIATELY, STATES IT IS WORKING WELL FOR HER. LUNGS SOUND COARSE THROUGHOUT, 2L VIA OXYMASK IN PLACE. HR REGULAR. BOWEL TONES ACTIVE, NO NAUSEA, NO FLATUS. DRESSINGS TO ABDOMEN C/D/I, EUGENE CONTINUES TO DRAIN SEROSANGUINOUS FLUID, 10ML EMPTIED. CENTRAL LINE INFUSING WNL. SALINAS PATENT, DRAINING LARGE AMOUNTS OF DILUTE YELLOW URINE. NO OTHER CHANGES FROM PREVIOUS ASSESSMENT. PT DENIES FURTHER REQUESTS AT THIS TIME, WILL CONTINUE TO MONITOR, PT HAS CALL LIGHT WITHIN REACH.
--- NOTE | 2017-06-30 03:09 | NUR ---
CHECKED IN ON PT WHO APPEARS TO BE SLEEPING, NO APPARENT DISTRESS. RESPIRATIONS EVEN AND UNLABORED, RR:16, SPO2:97% ON 2L. HR:88. WILL ALLOW FOR REST AND CONTINUE TO MONITOR.
--- NOTE | 2017-06-30 04:37 | NUR ---
PT CONTINUES TO SLEEP, NO APPARENT DISTRESS. RR:16, RESPIRATIONS EVEN AND UNLABORED, SPO2 96% ON 2L VIA OXYMASK. WILL ALLOW FOR REST AND CONTINUE TO MONITOR.
--- NOTE | 2017-06-30 05:55 | NUR ---
IN TO DO I&O'S AND TAKE VS. PT WOKE PAINFUL AND PUSHED CELLOPHANE BATH MIXER BUTTON. PT TEARFUL, ENCOURAGED HER TO FOCUS ON BREATHING AND TRY TO RELAX. ICE PACK PROVIDED FOR COMFORT. PT RESTING NOW, DENIES FURTHER REQUESTS. WILL CONTINUE TO MONITOR.
--- NOTE | 2017-06-30 07:50 | NUR ---
NEW DILAUDID CLIENT CARE CONSULTANT VIAL PLACED AT THIS TIME. SETTINGS REMAIN THE SAME. PT AWAKE BUT REQUESTING TO SLEEP A WHILE LONGER THIS AM BEFORE BREAKFAST. PT STATES SHE SLEPT FAIRLY WELL BUT FEELS SHE WENT TOO LONG WITHOUT PAIN MEDICATION AND WOKE UP IN A LOT OF PAIN. PT REMAINS ON CONT PULSE OX. SALINAS PATENT DRAINING CLEAR YELLOW URINE. ICE PACK TO ABDOMEN FOR COMFORT. CONTINUE TO MONITOR.
--- NOTE | 2017-06-30 09:55 | NUR ---
PATIENT AMBULATED OUT OF CCU, AROUND ENTIRE MED SURG UNTIL TWICE AND TOLERATED THIS VERY WELL. PT NOW SITTING IN CHAIR. BED LINEN CHANGED. PT IS TOLERATING HER FULL LIQUID TRAY WITHOUT DIFFICULTY. PLAN MADE TO AMBULATE AT LEAST 3 TIMES TODAY WITH PATIENT AND SHE IS AGREEABLE. EUGENE DRAINING SEROSANGINOUS FLUID. SALINAS EMPTIED TO 1000 ML AT THIS TIME. CONTINUE TO MONITOR.
--- NOTE | 2017-06-30 10:08 | NUR ---
PATIENT BACK TO BED AT THIS TIME. S/O IN ROOM. CALL LIGHT WITHIN REACH.
--- NOTE | 2017-06-30 11:45 | NUR ---
DR. BEAVER IN TO SEE PATIENT. PATIENT RESTING AT THIS TIME. DISCUSSED WITH PHYSICIAN AND PATIENT PLAN OF CARE REGARDING MOVING TO MED/SURG, SHOWERING, AND INCREASING ACTIVITY. PT ALSO WILL BE STARTED ON ORAL PAIN MEDICATIONS AND STARTED TO TAPER OFF THE AUTOMOTIVE POWER ELECTRONICS ENGINEER TOLERATED. SALINAS WILL REMAIN IN UNTIL AFTER PATIENT'S BLADDER HAS HEALED. PT WILL TRANSFER OVER TO MED/SURG THIS AFTERNOON.
--- NOTE | 2017-06-30 13:46 | NUR ---
PATIENT AMBULATES OVER TO ROOM 123. VERBAL REPORT GIVEN TO KYLIE VALENTIN WHO IS RESUMING CARE OF THIS PATIENT. PT GIVEN A PERCOCET AT THIS TIME, AND ENCOURAGED TO KEEP AMBULATING. PT IN GOOD SPIRITS. SALINAS EMPTIED FOR 575 ML AND EUGENE EMPTIED FOR 40 ML SEROSANGINOUS FLUID. ALL BELONGINGS TAKEN WITH PATIENT.
--- NOTE | 2017-06-30 13:55 | NUR ---
[facility] REPORT TAKEN FROM HILARIO ESPINAL. PT ORIENTED TO ROOM AND CALL LIGHT. PT AMBULATED TO ROOM. TOLERATED WELL. ATTEMTPING TO TRANSITION TO ORAL PAIN MEDICATION. PERCOCET GIVEN. RATING PAIN 8/10 IN ABDOMEN.
--- NOTE | 2017-06-30 14:41 | NUR ---
gave pt additional tab percocet 7.5/325 po for pain 4/10 in abdomen. discussed usage of ACADEMIC ASSOCIATE with percocet on board. pt verbalized understanding.
--- NOTE | 2017-06-30 15:46 | NUR ---
IN ROOM TO REASSESS PTS PAIN. PT STATED, "I LIKE THE PAIN PILLS MUCH BETTER. THEY TAKE THE PAIN AWAY MORE THAN THE IV MEDICATION." DISCUSSED KEEPING UP ON ORAL PAIN MEDICATION AND STARTING A SCHEDULE. PT VERBALIZED UNDERSTANDING.
--- NOTE | 2017-06-30 17:00 | NUR ---
IN ROOM WITH PT. PT CONCERNED OVER INCREASED IN ABDOMINAL PAIN FOLLOWING FIRST BM. DISCUSSED REASON FOR FEELING "CRAMPY." PT VERBALIZED UNDERSTANDING.
--- NOTE | 2017-06-30 18:12 | NUR ---
PT COMPLAINED OF PAIN 6/10 IN ABDOMEN. GAVE 2 TABS PERCOCET 7.5/325 PO.
--- NOTE | 2017-06-30 18:23 | NUR ---
GOT PATIENT A SODA POP WITH A GLASS OF ICE AND ALSO REFILLED HER ICE WATER.
--- NOTE | 2017-06-30 18:23 | NUR ---
PT UP TO BATHROOM WITH STANDBY ASSIST. INSTRUCTED TO CALL WHEN DONE. VERBALIZED UNDERSTANDING.
--- NOTE | 2017-06-30 18:51 | NUR ---
pt transfered over from [facility] this afternoon. pt anxious about transfer but calmed down once on floor. started on percocet 7.5/325. attempting to wean off of supervisor chemical. pt tolerated well. stated. "these pills work better for my pain." pt has reaves that will remain in place. abdominal dressing in place. c/d/i. erin present. bowel movement this evening. tolerating diet. ambulating in hallways.
--- NOTE | 2017-06-30 20:26 | NUR ---
ice for abd art her request, coop with assessment, moist, productive cough with clear to greebnish colored sputum, left triple lumen iv site intact. weaning off food order expediter, has tolerated well no other request
--- NOTE | 2017-06-30 22:26 | NUR ---
c/o abd and back pain . medicated with 2 percocet . using fittings finisher dilaudid
--- NOTE | 2017-07-01 00:05 | NUR ---
No further c/o pain, resting, eyes closed. Using SALES AND MARKETING MANAGER, aware of weaning off SALES AND MARKETING MANAGER orders. on Full liquids, tolerating well
--- NOTE | 2017-07-01 04:24 | NUR ---
Pt continues to have CUSTOMER SERVICES SUPERVISOR Dilaudid being weaned off. has used 1.1 mg this shift. Abd dressing silver meplex dressing in place. ANITRA, area tender, EUGENE site intact, s/s drainage. F/C patent draining QS clear yellow urine. Has tolerated being in full liquid diet. Continues to be very anxioys, was crying, reassured , calmed down now.
--- NOTE | 2017-07-01 09:21 | NUR ---
DR. BEAVER ROUNDED ON PATIENT. PLAN TO DC DRIER ATTENDANT ALL TOGETHER. PATIENT STATES PO PAIN MEDICATION CONTROLLING PAIN WELL. ADVANCED TO REGULAR DIET. PATIENT REPORTS HAVING BM. DISCUSSED NEXT PAIN MEDICATION DUE. GOAL TO SHOWER TODAY. DSG TO ABDOMEN C/D/I. EUGENE DRAINING HAS SEROSANGUINIOUS FLUID.
--- NOTE | 2017-07-01 11:09 | NUR ---
REMOVED SALINAS CATH, AND DSG TO MID SURGICAL SITE, STERI STRIPS INTACT. PATIENT UP TO SHOWER, AND THEN AMBULATING IN HALLS. NO COMPLAINTS OF PAIN AT THIS TIME STATES " I AM FEELING GREAT".
--- NOTE | 2017-07-01 11:53 | NUR ---
THE NURSE HELPED HER SET UP FOR HER SHOWER AND ALSO CHANGED HER BED LINENS.
--- NOTE | 2017-07-01 13:58 | NUR ---
PT WAS LAYING IN BED, RESTING. SHE MENTIONED THAT SHE WAS JUST ABOUT TO FALL ASLEEP. SHE DID THANK ME FOR CHECKING ON HER. SHE SEEMED EXCITED AT THE IMPROVEMENT SHE IS HAVING. SHE HOPES TO BE DC'D TOMORROW. WILL FOLLOW TOMORROW
--- NOTE | 2017-07-01 15:53 | NUR ---
PATIENT ATTEMPTED TO EAT REGULAR FOOD AT LUNCH, ORDRED CHEESEBURGER AND FRIES. ATE ABOUT 4 BITES OF BURGER AND 1 SAAVEDRA AND A BITE OF THE CAKE. PATIENT NOW NOT FEELING WELL. BOWEL TONES HYPO ACTIVE THROUGHOUT. PATIENT UP AMBULATING IN HALLS, STATES " I AM STILL PASSING GAS". CHANGED DINNER ORDER TO SOFTER FOODS, SOUP AND CREAM OF WHEAT CEREAL. PATIENT VERBALIZES UNERSTANDING. RATES PAIN 5/10 ON PAIN SCALE. NOW SITTING ON EDGE OF BED BELCHING.
--- NOTE | 2017-07-01 16:54 | NUR ---
PATIENT APPEARS FRUSTRATED AND ON TEARS, LASHING OUT BECAUSE SHE STATES " I AM SO ANGRY AT MYSELF, I WAS FEELING SO GOOD AND NOW I FEEL LIKE A KID THAT ATE TOO MUCH CANDY". PATIENT HAS BEEN UP AMBULATING IN HALLS, AND PACING IN ROOM. PATIENT SIPPING ON WATER AND SPRITE. ADMINISTERED 1MG HALDOL.
--- NOTE | 2017-07-01 18:41 | NUR ---
PATIENT DID WELL THROUGHOUT MORNING, REMOVED MEPIPLEX TO INSCION SITE ON ABDOMEN. SHOWERED. UP AMBULATING. SALINAS DC'D. GOOD URINE OUTPUT. ADVANCED TO REGULAR DIET, DID NOT DO WELL, STOMACH UPSET. PATIENT HAD INCREASED ANXIOUSNESS STATES " I AM SO SCARED I SCREW EVERYTHING UP" ADMINISTERED HALDOL X1 FOR AGITATION AND ANXIETY. BP STABLE 156/72 P 80. PLAN WITH PATIENT TO ADMINISTER PAIN MEDICATION BEFORE SHIFT CHANGE.
--- NOTE | 2017-07-01 20:25 | NUR ---
recieved report from day rn. pt in bed at this time. voiding well. no pain at this time. pt sleeping with cold rag on head. call light wihtin reach. personal items within reach.
--- NOTE | 2017-07-01 22:58 | NUR ---
PT APPEARS TO BE SLEEPING. RR WNL. CALL LIGHT WITHIN REACH.
--- NOTE | 2017-07-02 02:09 | NUR ---
PT APPEARS TO BE SLEEPING. RR WNL. CALL LIGHT AT BEDSIDE.
--- NOTE | 2017-07-02 03:40 | NUR ---
PT APPEARS TO BE SLEEPING. RR WNL. NO INDICATIONS OF PAIN AT THIS TIME. CALL LIGHT WITHIN REACH.
--- NOTE | 2017-07-02 04:26 | NUR ---
pt reports 7/10 after ambulating to the bathroom. pain medication given. refreshed pt water. gave cold rag. pt stated this helps decrease her anxiety. erin drainage was 20 all night.
--- NOTE | 2017-07-02 04:48 | NUR ---
pt slept well throughout the night. percocet given for pain x2. pt on regular diet. erin drain in right side. midline insition with steri strips. scant amount of drainage that is dried. plan on posible discharge today. pt has haldol prn for anxiety. central line in left upper chest.
--- NOTE | 2017-07-02 05:37 | NUR ---
pt appears to be sleeping. rr wnl. call light withing reach.
--- NOTE | 2017-07-02 07:30 | NUR ---
REPORT RECEIVED FROM KYLIE HARRY. PT AWAKE BUT DROWSY. STATES SHE IS DOING OK BUT NOT WONDERFUL. SL AND NOT ON PULSE OX.
--- NOTE | 2017-07-02 08:33 | NUR ---
PT AWAKE AND TALKATIVE. PT ASKED FOR PAIN MEDICATION RATES 11/17. PT UP TO RESTROOM FOR FALSE ALARM. INDEPENDENT IN ROOM. IN ROOM. BT ACTIVE. IV FLUSHES WELL.
--- NOTE | 2017-07-02 08:52 | OR ---
[facility] [address] [place], [place] [address] Signed DATE OF OPERATION: 06/27/2017 SURGEON: Leatha Beaver MD PREOPERATIVE DIAGNOSES: 1. 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 2. Anxiety disorder and morbid obesity. 3. Poor peripheral access. POSTOPERATIVE DIAGNOSES: 1. 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 2. Left pyosalpinx including enlarged ovary. 3. Anxiety disorder, morbid obesity, and poor peripheral access. PROCEDURE: 1. Cystoscopy. 2. Laparotomy with sigmoid colectomy with side-to-end coloproctostomy (prolonged complicated difficult). 3. Repair of colovescicle fistula (bladder repair). 4. Left salpingo-oophorectomy. 5. Mobilization of splenic flexure. 6. Omental pedicle graft. 7. Placement of left subclavian triple-lumen catheter. CNC MAINTENANCE TECHNICIAN: Nurse. ANESTHESIA: General endotracheal (Leatha Kwok CRNA). DRAINS: 7-mm Ryder. INDICATION: This 42-year-old obese white woman presented a few weeks ago to the hospital with free air consistent with diverticular perforation. At that time, she underwent laparoscopy with laparoscopic washout of peritoneal cavity and placement of a left lower abdominal drain. The patient has an underlying undiagnosed and untreated anxiety disorder overall and was feeling so well postoperatively within the first 24 hours that she signed herself out of the hospital Electronically Signed By: LEATHA BEAVER MD 07/02/17 0852 PATIENT NAME: OWEN ATKINS OPERATIVE REPORT DATE OF : 75 PHYSICIAN: LEATHA BEAVER MD REPORT #: [id number] REPORT IS CONFIDENTIAL AND NOT TO BE RELEASED WITHOUT AUTHORIZATION [facility] [address] [place], [place] [address] Signed AMA. I did see her in followup in the office and removed the drain at which time she was more civil and cooperative. Our plan at that point was continued antibiotic therapy, a followup CT scan, and ultimately colonoscopy to assess that there is no evidence of neoplastic disease, though the diagnosis of diverticular related perforation was deemed quite secure based on laparoscopic evaluation. On June 13, she underwent a CT scan of the abdomen where she was found to have a linear fluid collection in the region of prior drainage and some question regarding the left salpinx. She was admitted to the hospital after presentation to the emergency room on June 23, 2017 with recurrent lower abdominal pain and findings consistent with urinary tract infection. A repeat CT scan was undertaken, which confirmed a fair amount of air within the bladder, therefore consistent with colovesical fistula. She was admitted for further evaluation and care in that regard. During course of hospitalization, a urinary tract infection was treated with broad-spectrum antibiotics though she did not have systemic sepsis. A colonoscopy was performed to assure that there was no evidence of neoplastic change accounting for her colovesical fistula.Colonoscopy was essentially normal except for diverticular change seen in the sigmoid. Notably, the colon itself appeared completely uninflamed and normal overall. Special note, the CT scan most recently performed did not show signs of abscess per se, only air in the bladder, but did show suspicion of left adnexal inflammatory changes and some question of whether there may be a colosalpingeal fistula as well. She is now to undergo sigmoid colectomy, repair of the colovesical fistula and other indicated procedures. We have had plenty of time to discuss this in detail with the patient and her and arrangements were made for the operation. However, immediately prior to operation, she had a considerable amount of anxiety manifesting as essentially an anxiety outburst, ultimately calmed and with full consideration of options including cancellation of the operation, transfer to a place elsewhere and so forth. She ultimately settled upon proceeding with operation as planned. The risks of bleeding, infection, ureteral injury, recurrent disease, failure to cure the fistula, and other unforeseen complications were reviewed in detail with the patient and her , they understand and wished to proceed. FINDINGS: On cystoscopy, there were fecal elements within the urine itself. The fistula itself was not visualized. There was no sign of neoplasm. Electronically Signed By: LEATHA BEAVER MD 07/02/17 0852 PATIENT NAME: OWEN ATKINS OPERATIVE REPORT DATE OF : 75 PHYSICIAN: LEATHA BEAVER MD REPORT #: [id number] REPORT IS CONFIDENTIAL AND NOT TO BE RELEASED WITHOUT AUTHORIZATION [address] [address] Signed Within the abdomen, there is a very dense inflammatory cicatrix of the colovesical fistula area in the low sigmoid. A coil spring type sigmoid was noted as is typically the case. The rectum itself was thickened, but not acutely inflamed per se as in the more proximal colon. A transition to normal colon was noted, though the colon again has a somewhat thick wall overall. The operation was prolonged, complicated, and difficult due to the intense inflammatory cicatrix of the left pelvis; additionally, there were findings of pyosalpinx on the left which necessitated excision of the tube and left ovary. Notably, the left ovary was approximately 6 cm in size with a cystic component to it. The uterus itself was atretic and jumbled up in the inflammatory mass of the pelvis. The right adnexal structures were clinically normal. The gallbladder was palpably normal. The liver was normal. The small intestine was normal as well. The appendix was elongated and thin without fecalith and was not resected. DESCRIPTION OF PROCEDURE: The patient was brought to the operating room, given a general endotracheal anesthetic. Precedex was used as well as part of the induction protocol in this case. Preoperative antibiotics meropenem were on board. Heparin had been subcutaneously administered and other medications ongoing. In a frog-leg position, the perineum was prepared and with sterile technique gloves and so forth and gown, flexible cystoscopy undertaken. Entry into the bladder was without problem. Turbid urine was noted with fecal material within it. Examination of the dome and right and left horns of the bladder were undertaken without problem and retroflexed view performed as well. Photographs were taken. There was no clear evidence of neoplasm in any way nor any sign of the actual fistulous opening. The cystoscope was removed and exchanged for a regular Gutierrez catheter. The abdomen was then prepared with a chlorhexidine solution and draped sterilely. The legs, which had been elevated by assistance were allowed to be in a reasonably normal flat position with support beneath the knees as usual. After sterile preparation and draping, incision was made cephalad to the umbilicus and extended to the symphysis pubis. She has very thick abdominal wall pannus. The abdomen was ultimately entered without problem showing no sign of ascites or carcinomatosis. The small bowel was entirely normal as was the stomach, transverse colon, and proximal and descending colon. The appendix was somewhat tethered to the pelvis. This was freed with blunt and electrocautery dissection. The appendix itself was elongated and normal and without palpable fecalith. A Bookwalter retractor was affixed to the table. The liver was Electronically Signed By: LEATHA BEAVER MD 07/02/17 0852 PATIENT NAME: OWEN ATKINS OPERATIVE REPORT DATE OF : 75 PHYSICIAN: LEATHA BEAVER MD REPORT #: [id number] REPORT IS CONFIDENTIAL AND NOT TO BE RELEASED WITHOUT AUTHORIZATION [facility] [address] [place], [place] [address] Signed examined and found to be normal as was the stomach and the gallbladder. Using the Bookwalter retractor, the small bowel was packed to the right side of the abdomen with moist laparotomy packs. Examination was then more fully undertaken in the rectosigmoid area. Dense cicatrix of the sigmoid to the left lateral pelvic sidewall and anteriorly was noted. The white line of Toldt was incised and using blunt dissection and meticulous care the retroperitoneal structures from the mesentery of the descending colon. A dense firm cicatrix of the sigmoid to the posterior wall of bladder was noted. It was peculiar that the uterus would not have provided a barrier to such formation, however, was later found that it was quite atretic. A laborious and lengthy dissection a plane was developed between the bladder and the sigmoid colon itself. The fistulous opening was noted out in the posterior lower aspect of the bladder, but not likely to the trigone itself. Ultimately, this was freed fully. The mobilized rectosigmoid was like vulcanized rubber. The rectum itself was normal as expected. Dense inflammatory changes of the left adnexa were noted. The ovary looked quite enlarged, probably 5-6 cm, possibly cystic, but dense and doughy, somewhat like a dermoid, though that is uncertain at this point. It became clear that the left salpinx was markedly dilated as well. With further dissection, it was found to contain purulence. In this region was some other purulence for which both areas were Gram stain and cultured. It was deemed most appropriate due to the distended pus laden left tube that excision would be undertaken in continuity with the ovary which was excessively large considering her age. This was dissected free with meticulous care, allowing for identification of the infundibulopelvic ligament and securing it with 0 Vicryl ties doubly applied. This was passed as a separate specimen. The uterus at this point be more fully identified and was firm and rubbery and densely adherent to the pelvic inflammatory process. Now that the rectosigmoid was more fully freed, the area of resection was deemed most appropriate as the upper to mid rectum inferiorly and the descending colon proximally. Using blunt and electrocautery dissection, the left colon was freed and splenic flexure Electronically Signed By: LEATHA BEAVER MD 07/02/17 0852 PATIENT NAME: OWEN ATKINS OPERATIVE REPORT DATE OF : 75 PHYSICIAN: LEATHA BEAVER MD REPORT #: [id number] REPORT IS CONFIDENTIAL AND NOT TO BE RELEASED WITHOUT AUTHORIZATION [address] [address] Signed mobilization undertaken in the usual way. This allowed for generous amount of left colon for a tension-free anastomosis. The mesentery corresponding to the sigmoid and diseased segment was scored with electrocautery and sequential application of tonsil clamps for hemostasis were used to secure the vascular pedicles. These were doubly secured with 0 silk ties. A HUY stapling device 75 mm in length was used to transect the distal normal descending colon. Further dissection of the mesocolon (sigmoid and proximal rectum) was undertaken with special care to avoid encumbrance or injury to the left ureter in its presumed position. It was ultimately freed completely allowing for application of right angle bowel clamp to the upper rectum. Clamp was applied cephalad to that and the specimen excised fully and passed for pathology. Photographs were taken. Plans were then made for anastomosis. A side-to-end coloproctostomy was then undertaken in a two layer technique of interrupted 3-0 silk sutures. A completely tension-free anastomosis was noted. The sigmoid and its adherence to the posterior bladder forming a colovesical fistula had been freed previously. Examination for the fistulous opening itself was undertaken. The area presumed as the opening was then oversewn with 2-0 Vicryl suture. Insufflation of the bladder with sterile saline was undertaken by the circulating nurse distending the bladder and showing no sign of leak or other problem. The Gutierrez catheter was then turned to a dependent position in the urimeter. Irrigation was undertaken. Isolating laparotomy packs were removed. Through a left lower abdominal stab incision, a 7 mm flat Ryder drain was insinuated into the pelvis. Given her propensity for colovesical fistula and despite a relatively small uterus that remained in place, it was deemed most advantageous to minimize further chances at fistulization as well as to provide for more optimal healing of the inflamed and previously pus laden left salpinx that an omental pedicle flap be developed and insinuated between the structures. Serial application of hemostats to the midportion of the omentum was undertaken securing the vascular pedicles. The left side of the remaining omentum was taken down to the pelvis and secured with a few silk sutures providing the interposing segment of omentum. Irrigation was undertaken more fully sign to be no untoward bleeding or other problems. Electronically Signed By: LEATHA BEAVER MD 07/02/17 0852 PATIENT NAME: OWEN ATKINS OPERATIVE REPORT DATE OF : 75 PHYSICIAN: LEATHA BEAVER MD REPORT #: [id number] REPORT IS CONFIDENTIAL AND NOT TO BE RELEASED WITHOUT AUTHORIZATION [facility] [address] [place], [place] [address] Signed Plans were then made for closure. The midline fascia was reapproximated with running bidirectional #1 PDS suture. Deep subcutaneous tissue was irrigated and a few interrupted 2-0 Vicryl used for the deep portions of Camper's fascia. The skin was closed with running subcuticular 3-0 Vicryl. Steri-Strips were applied as was a Mepilex silver sponge dressing. An Opsite was then applied. As the patient has very poor peripheral access due to her obesity and so forth, it was deemed most appropriate that a central venous catheter be placed. On that basis, the left arm was placed at the side. The upper torso were prepared with a Betadine solution and after changing of sterile gown, glove, mask etc an Arrow blue tip triple-lumen catheter kit was obtained. The area was sterilely draped and on single pass, the left subclavian vein easily accessed showing dark nonpulsatile blood. A flexible J-wire from the kit was passed down the needle. The needle was removed. The site was incised with an 11 blade and dilated with a blue dilator and a previously inspected and irrigated Arrow blue tip triple-lumen catheter was passed over the wire. The wire was removed aspirating the distal port showed dark nonpulsatile blood. The catheter was withdrawn a bit and secured to the skin with an enclosed nylon suture. An anti-infective disk was applied as was an Opsite. A postprocedure chest x-ray was performed, which confirmed the catheter to be in the superior vena cava in the atriocaval junction and without sign of complication including pneumothorax. The patient tolerated the procedure well. It was prolonged, complicated, and very difficult on the basis of the extent of inflammation her obesity and so on. Leatha Beaver MD JM/MODL /[id number] cc: Ryan Ribeiro MD Electronically Signed By: LEATHA BEAVER MD 07/02/17 0852 PATIENT NAME: OWEN ATKINS OPERATIVE REPORT DATE OF : 75 PHYSICIAN: LEATHA BEAVER MD REPORT #: [id number] REPORT IS CONFIDENTIAL AND NOT TO BE RELEASED WITHOUT AUTHORIZATION
--- NOTE | 2017-07-02 09:29 | NUR ---
PT WALKING LAPS IN [place] WITH . TOLERATING WELL.
--- NOTE | 2017-07-02 10:52 | NUR ---
PT ALERT, ORIENTED AND VERY ANXIOUS TO SEE DR BEAVER FOR DC INSTRUCTIONS. SHE HAS BEEN WALKING THE HALLS, TRYING TO PASS THE TIME. SHE IS VERY PLEASANT. I EXTENDED A BLESSING, SHE THANKED ME
--- NOTE | 2017-07-02 10:56 | NUR ---
PT SITTING UP IN BED WATCHING TV WITH AT BEDSIDE.
--- NOTE | 2017-07-02 11:32 | NUR ---
PT UP WALKING IN [place].
[2017-07-02] MEDS ORDERED: NICOTINE PATCH1 EAC1 TD (11:58)
[2017-07-02] MEDS ORDERED: SULFAMETHOXAZO1 EAC1 PO (11:58)
[2017-07-02] MEDS ORDERED: OXYCODON-ACETA1 EAC2 PO (11:59)
[2017-07-02] MEDS ORDERED: MOTRIN IB200 MG PO (11:59)
[2017-07-02] MEDS ORDERED: TYLENOL325 MG PO (12:00)
--- NOTE | 2017-07-02 12:01 | NUR ---
PT SPOUSE CAME TO NURSES STATION WITH CONCERN TO BE ADDRESSED WITH . THAT HE HOPES THAT THE WILL NOT "SKIMP" ON PAIN MEDICATION PRESCRIPTION PATIENT IS STILL IN A LOT OF PAIN. THIS MESSAGE REPORTED TO AT NURSES STATION.
--- NOTE | 2017-07-02 13:36 | NUR ---
CENTRAL LINE REMOVED. CATH INTACT. PT TOLERATED WELL. DISCHARGE EDUCATION PROVIDED. PT VERBALIZED UNDERSTANDING.
--- NOTE | 2017-07-04 13:48 | DS ---
[facility] [address] [place], [place] [address] Signed ADMISSION DATE: 06/23/2017 DISCHARGE DATE: 07/02/2017 REASON FOR ADMISSION: This 42-year-old white woman, who has undergone laparoscopy with laparoscopic washout for perforated diverticulitis on May 15, 2017, a drain was placed at that time. She was seen in followup for drain removal, anticipating colonoscopy to rule out neoplastic disease, though the probability of neoplastic disease was quite minimal. A CT scan was performed in followup on June 13, 2017, because she had ongoing left lower abdominal pain and there appeared to be a linear fluid collection about 10 cm on the left hemipelvis suggestive of fluid collection, though subsequently found likely to be related to a dilated hydrosalpinx or pyosalpinx. She presented to the emergency room on the day of current admission with rather significant left lower abdominal pain and tenderness, as well as an abnormal urinalysis. She had reported four days of pneumaturia. Clinically, she had a colovesical fistula. A CT scan was performed, which confirmed a fair amount of air within the bladder, possible fistula to the left salpinx as well. She was admitted for further evaluation and care. PERTINENT PHYSICAL EXAMINATION: GENERAL: An obese white woman, who is alert and oriented and nontoxic. NECK: Trachea is midline. CHEST: Clear. She had no tachypnea. She had some inspiratory and expiratory wheezing, which was low-grade. ABDOMEN: Obese, but soft. There is mild tenderness in the left lower abdomen. EXTREMITIES: No sign of clubbing, cyanosis, or edema. LABORATORY STUDIES: Showed a white count of only 6.1, platelets 369,000 with normal differential. Alkaline phosphatase was elevated at 145, globulin 3.6, lipase 29. Beta-hCG negative. Urinalysis abnormal for urinary tract infection, subsequently proven to be E. coli related. HOSPITAL COURSE: She was admitted, given fluid resuscitation and broad-spectrum antibiotic meropenem. It was clear that since her initial presentation developed a colovesical fistula, normally certainly related to diverticular source. As she had still not undergone colonoscopy, some question of whether this might represent a neoplastic related fistula was considered. On June 25, 2017, she underwent a colonoscopy after bowel preparation, which showed only diverticular changes of the sigmoid, no evidence of neoplasm or other Electronically Signed By: LEATHA BEAVER MD 07/04/17 1348 PATIENT NAME: OWEN ATKINS DISCHARGE SUMMARY DATE OF : 75 PHYSICIAN: LEATHA BEAVER MD REPORT #: [id number] REPORT IS CONFIDENTIAL AND NOT TO BE RELEASED WITHOUT AUTHORIZATION [facility] [address] [place], [place] [address] Signed abnormality. She was maintained with broad-spectrum antibiotics, given her urinary tract findings and culture, which confirmed E. coli, not surprising considering a colovesical fistula. On June 27, 2017, she underwent operation; this included cystoscopy which did not demonstrate the actual fistula within the bladder, but did show fecal material within the bladder as well as sigmoid resection with side-to-end coloproctostomy. An interposed omental pedicle was used to minimize chances of recurrent fistulization, repair of the bladder fistula itself undertaken as well and also excision of a left pyosalpinx with ovarian cystic lesion. At present, the pathology report is still pending. A drain was placed as well. Her postoperative course was rather unremarkable. She was maintained with a FINANCE ATTORNEY. The first night in the intensive care unit given the extent of her operation, which was prolonged, complicated, and difficult. A Gutierrez catheter was allowed to remain in place for several days and removed once bowel function had returned. The day of surgery, she was begun on a clear liquid diet and advanced to a full liquid diet until that time that she had bowel movements, which allowed for advancing of her diet to regular diet. She tolerated this well as also. In due course, the Gutierrez catheter was removed and she had no further pneumaturia. The drain was removed prior to discharge. It is anticipated that she will return to see me in approximately a month. She will maintain a regular diet and is requested to walk on a daily basis, but avoid lifting more than 20 pounds for the next month. She will be maintained with a nicotine patch as she has now had durable smoking cessation without level of assistance. DISCHARGE MEDICATIONS: Will include: 1. Bactrim DS one tablet p.o. b.i.d., #10. 2. Nicotine 21 mg patch daily, #30. 3. Percocet 7.5/325 one to two p.o. q.4 hours p.r.n. pain, #60. 4. Motrin 600 mg p.o. q.6h p.r.n. pain. 5. Tylenol plain as needed 325 mg p.o. 6 hours. DISCHARGE DIAGNOSES: 1. Complicated sigmoid diverticulitis including colovesical fistula with urinary tract infection. 2. History of laparoscopic peritoneal lavage and placement of drain on May 15, 2017. 3. Open sigmoid resection with repair of colovesical fistula, cystoscopy, resection of left tube and ovary, and omental pedicle flap. Electronically Signed By: LEATHA BEAVER MD 07/04/17 1348 PATIENT NAME: OWEN ATKINS DISCHARGE SUMMARY DATE OF : 75 PHYSICIAN: LEATHA BEAVER MD REPORT #: [id number] REPORT IS CONFIDENTIAL AND NOT TO BE RELEASED WITHOUT AUTHORIZATION [address] [place] [address] Signed 4. Probable underlying anxiety disorder. 5. Smoking dependence. 6. Urinary tract infection, related to colovesical fistula (clearing). FOLLOWUP PLAN: She is return to see me in approximately a month. She will be organizing a followup visit with her primary physician, Dr. Ribeiro as well. MD IVAN Cardozo/VERNONL /[id number] cc: Ryan Ribeiro MD Electronically Signed By: LEATHA BEAVER MD 07/04/17 1348 PATIENT NAME: OWEN ATKINS DISCHARGE SUMMARY DATE OF : 75 PHYSICIAN: LEATHA BEAVER MD REPORT #: [id number] REPORT IS CONFIDENTIAL AND NOT TO BE RELEASED WITHOUT AUTHORIZATION
== END 2017-07-02 13:36 | disposition home or self-care (01) | DRG 330 ==
LOC: ED 03:16 → MS 04:45 → CCU 06-27 14:39 → MS 06-30 13:40
PROVIDERS: ADMIT Surgery
PROC: 0DJD8ZZ Inspection of Lower Intestinal Tract, Via Natural or Artificial Opening Endoscopic (ICD-10-PCS; 2017-06-25)
PROC: 0UT60ZZ Resection of Left Fallopian Tube, Open Approach (ICD-10-PCS; principal; 2017-06-27 09:00)
PROC: 02HV33Z Insertion of Infusion Device into Superior Vena Cava, Percutaneous Approach (ICD-10-PCS; principal; 2017-06-27 09:00)
PROC: 0TQB0ZZ Repair Bladder, Open Approach (ICD-10-PCS; principal; 2017-06-27 09:00)
PROC: 0WUF07Z Supplement Abdominal Wall with Autologous Tissue Substitute, Open Approach (ICD-10-PCS; principal; 2017-06-27 09:00)
PROC: 0UT10ZZ Resection of Left Ovary, Open Approach (ICD-10-PCS; principal; 2017-06-27 09:00)
PROC: 0DTN0ZZ Resection of Sigmoid Colon, Open Approach (ICD-10-PCS; principal; 2017-06-27 09:00)
DX: K63.2 Fistula of intestine (principal); N32.1 Vesicointestinal fistula; K57.20 Diverticulitis of large intestine with perforation and abscess without bleeding; N70.93 Salpingitis and oophoritis, unspecified; F41.9 Anxiety disorder, unspecified; E66.01 Morbid (severe) obesity due to excess calories; F10.21 Alcohol dependence, in remission; Z87.891 Personal history of nicotine dependence
CPT/HCPCS: 00910; 36415; 71045; 74177; 80048; 80053; 81001; 83690; 84703; 85025; 87070; 87075; 87077; 87088; 87186; 87205; 88305; 88307; 94640; 94760; 94762; 96361; 96374; 96375; 99156; 99157; 99285; G0480; J0330; J0461; J1100; J1170; J1630; J1644; J1885; J2060; J2185; J2250; J2270; J2405; J2550; J2704; J2710; J2765; J3010; J7030; J7120; Q9967

== ENCOUNTER 2017-08-27 18:10 | Inpatient (IN) | payer OTHER ==
[~2017-08-27] VITALS: Ht 182.9 cm; Wt 108.9 kg
[~2017-08-27 18:10] MED LIST: MOTRIN IB200 MG PO; NICOTINE PATCH1 EAC1 TD; OXYCODON-ACETA1 EAC2 PO; SULFAMETHOXAZO1 EAC1 PO; TYLENOL325 MG PO
--- NOTE | 2017-08-29 09:26 | HP ---
[facility] [address] [place], [place] [address] Signed ADMISSION DATE: 08/27/2017 REASON FOR ADMISSION: Possible pelvic abscess. HISTORY OF PRESENT ILLNESS: This 42-year-old morbidly obese white woman is known to me from the past and undergone sigmoid resection and repair of a colovesical fistula for diverticular disease on June 27, 2017. She underwent cystoscopy as well. Additionally resected was a left fallopian tube, which was dilated and infected as well. She recovered from her operation well, was seen in followup twice and found to be doing quite well. Approximately 2 weeks ago, she began having supraumbilical pain, which has worsened over time. She presented to the emergency room last night and was evaluated by Dr. Reina Cespedes emergency room physician and noted to have pain in the region of the supraumbilical area. A CT scan of the abdomen was performed, which showed a fluid collection in the pelvis, which was interpreted as abscess. Notably, the patient had no elevated white count or fever and her pain was not really in the pelvis, but rather in the supraumbilical area. Noted there also was a hernia. There was a previous defect in this area, which was now enlarged and she clearly has a hernia in the supraumbilical area. She was admitted under my service with the extensible cause of admission for pelvic abscess. Upon close questioning, the patient really does not seem to have pelvic pain at all, but rather pain in the supraumbilical area only. She has had no associated nausea or vomiting, but her pain is significant and she has been getting pain medication routinely since admission. She was admitted to the intensive care unit for house convenience due to no bed availability on the regular taylor. 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 She is completely pleased with this and is feeling much better than she did previously. MEDICATIONS AT ADMISSION: Included only Tylenol 650 p.o. q.6 hours p.r.n. pain. She previously was on Bactrim antibiotic, oxycodone, ibuprofen, and nicotine patch. A nicotine patch has been initiated since admission as she continues to smoke. Electronically Signed By: LEATHA BEAVER MD 08/29/17 0926 PATIENT NAME: OWEN ATKINS HISTORY AND PHYSICAL DATE OF : 75 REPORT #: [id number] PHYSICIAN: LEATHA BEAVER MD PCP: LYDIA GNA MD REPORT IS CONFIDENTIAL AND NOT TO BE RELEASED WITHOUT AUTHORIZATION [facility] [address] [place] [id number] Signed REVIEW OF SYSTEMS: She denies any hematuria or pneumaturia. She has had no problem with bowel movements. No blood per rectum. She denies pelvic pain. She has had pain only in the supraumbilical area. PHYSICAL EXAMINATION: GENERAL: Obese white woman, who is alert and oriented without sign of systemic toxicity. HEENT: Her mucous membranes are moist. Trachea is midline. CHEST: Clear. HEART: Regular without murmur. ABDOMEN: Obese. It is nondistended. Midline incision appears to be well healed. She has tenderness in the supraumbilical area and apparently reducible hernia in that area. Lower abdominal palpation reveals no particular tenderness of the pelvis. LABORATORY DATA: Her white count at admission at 07:15 p.m. August 27 was 10.7, this morning 7.6; hematocrit is 33.0, previously 34.5; platelet count is 245,000, previously 274,000. Chem profile performed yesterday was normal. Creatinine 0.88, alkaline phosphatase 169, globulin 3.6, and lipase 121. Urinalysis is essentially normal. I have reviewed the CT scan in detail. The hernia is well demonstrated as is a somewhat amorphous fluid collection in the pelvis, not far from the uterus and between bowel loops. It appears to be no free air in any area. Chest x-ray was normal. I believe the pelvic fluid collection is an incidental finding and not particularly atypical for 2 months following operation. I do not believe this represents an abscess, though that is a possibility of course. She has no elevated white count or pelvic pain. She certainly has a fair amount of pain related to hernia that is in the supraumbilical area. It is more likely that her symptoms of pain over the past 2 weeks as well as tenderness and findings on CT scan are related to the enlarged hernia which shows fat, probably omentum. She has been begun on broad-spectrum antibiotic Zosyn. I am less inclined to explore for pelvic fluid collection and simply fix the hernia at this point. Also notable, however, are her lab studies, which show an elevated lipase of 121 and elevated alkaline phosphatase of 169. The gallbladder was present, but there was no sign of gallstones. Electronically Signed By: LEATHA BEAVER MD 08/29/17 0926 PATIENT NAME: OWEN ATKINS HISTORY AND PHYSICAL DATE OF : 75 REPORT #: [id number] PHYSICIAN: LEATHA BEAVER MD PCP: LDYIA GAN MD REPORT IS CONFIDENTIAL AND NOT TO BE RELEASED WITHOUT AUTHORIZATION [address] [address] Signed For the time being, I will hold off any exploration or repair of any hernia and instead obtain a gallbladder ultrasound to see if there are stones or stigmata of a biliary problem. We will repeat her liver tests including lipase this morning as well. She does not seem to have pelvic pain to strongly suggest a pelvic abscess after all. MD IVAN Cardozo/VERNONL /[id number] cc: Dr. Reina Gan MD Copies: LYDIA GAN MD ~ Electronically Signed By: LEATHA BEAVER MD 08/29/17 0926 PATIENT NAME: OWEN ATKINS HISTORY AND PHYSICAL DATE OF : 75 REPORT #: [id number] PHYSICIAN: LEATHA BEAVER MD PCP: LYDIA GAN MD REPORT IS CONFIDENTIAL AND NOT TO BE RELEASED WITHOUT AUTHORIZATION
[2017-08-29] MEDS ORDERED: VITAMIN D50000 UNI1 PO (11:56)
[2017-08-30] MEDS ORDERED: NICOTINE PATCH1 EAC1 TD (17:24)
[2017-08-30] MEDS ORDERED: OXYCODON-ACETA1 EAC2 PO (17:25)
--- NOTE | 2017-08-31 12:33 | OR ---
[facility] [address] [place], [place] [address] Signed DATE OF OPERATION: 08/30/2017 SURGEON: Leatha Beaver MD PREOPERATIVE DIAGNOSES: 1. Painful incarcerated incisional hernia. 2. Morbid obesity. POSTOPERATIVE DIAGNOSES: 1. Painful incarcerated incisional hernia. 2. Morbid obesity. PROCEDURE: 1. Repair of incarcerated incisional hernia. 2. Implantation of Prolene mesh, underlay technique. ANESTHESIA: General endotracheal, Agata Emiliano, BINDER FOLDER OPERATOR and local 20 mL of 0.25% Marcaine with epinephrine. INDICATION: This 42-year-old white woman underwent sigmoid colectomy and left salpingectomy for a colovesical fistula in June. She did well from operation. On the 27 of August, she presented to the emergency room with severe abdominal pain. The pain was actually located at the umbilicus, but a CT scan performed under the direction of Dr. Reina Cespedes showed a fluid collection in the pelvis and concern was maintained for possible pelvic abscess. She was admitted to my service and examination by me showed her to have no pain in the pelvis whatsoever and the fluid collection in the pelvis to me did not look at all like an abscess. Her pain and tenderness and so forth was in the supraumbilical area. She has enough obesity that clinical examination is unclear as to the source of the problem, but review of her CT scan shows incisional hernia in the superior aspect just above the umbilicus with omentum within it. As she did have some epigastric and right subcostal pain, concern was also maintained for possible biliary disease and she has undergone workup including ultrasound, which was normal and a CCK-HIDA test which was normal also. Her tenderness is now quite markedly focal in the supraumbilical area. She appears to have an unreducible incisional hernia for which repair is indicated. There appears to be no sign of strangulation as she does not have a white count or systemic toxicity. FINDINGS: Electronically Signed By: LEATHA BEAVER MD 08/31/17 1233 PATIENT NAME: OWEN ATKINS OPERATIVE REPORT DATE OF : 75 REPORT #: [id number] PHYSICIAN: LEATHA BEAVER MD PCP: RYAN GAN MD REPORT IS CONFIDENTIAL AND NOT TO BE RELEASED WITHOUT AUTHORIZATION [facility] [address] [place], [place] [address] Signed The hernia defect was approximately 4 cm. Hernia sac was well formed. Omentum was incarcerated without infarction. The hernia was reduced. The properitoneal space was developed and implantation of Prolene mesh in an underlay technique was used to secure repair. DESCRIPTION OF PROCEDURE: The patient was brought to the operating room, given a general endotracheal anesthetic. Preoperative antibiotic Ancef was given. Sequential compression device stockings used and heparin subcutaneously administered. The abdomen was prepared with chlorhexidine solution and draped sterilely. An incision was made cephalad to the umbilicus in the previous incision. Dissection carried through the thick abdominal wall pannus ultimately allowing for dissection of a hernia sac. This was freed from the surrounding soft tissue ultimately identifying the fascial edges. The defect was approximately 4 cm in circumference. The sac was manipulated allowing reduction of incarcerated omentum. The sac was then dissected free from the overlying fascia circumferentially allowing for a space developed 4 cm from the edge throughout. Hernia sac redundancy was amputated and passed for pathology. The remnants of the sac were secured with 2-0 Vicryl suture. A segment of Prolene mesh was cut to an oblong configuration and secured in the properitoneal space in an underlay technique using the properitoneal fat and peritoneum as a barrier for the intraabdominal viscera from the implanted mesh. Prolene pledgets were used to secure the sutures and they were placed in interrupted configuration. Ultimately, the midline fascia was reapproximated transversely additionally using Prolene suture as well as Prolene pledgets. A 20 mL of 0.25% Marcaine with epinephrine was injected locally. Jeffry's layer was reapproximated with interrupted 2-0 Vicryl. Skin was then closed with running subcuticular 3-0 Vicryl. Steri-Strips were applied as was a Mepilex silver sponge dressing and an OpSite. An abdominal binder was obtained for postoperative use as well. The patient tolerated the procedure well. There was minimal blood loss. Complications none. Leatha Beaver MD JM/MODL /[id number] cc: Reina Cespedes MD Electronically Signed By: LEATHA BEAVER MD 08/31/17 1233 PATIENT NAME: OWEN ATKINS OPERATIVE REPORT DATE OF : 75 REPORT #: [id number] PHYSICIAN: LEATHA BEAVER MD PCP: RYAN GAN MD REPORT IS CONFIDENTIAL AND NOT TO BE RELEASED WITHOUT AUTHORIZATION [address], [place] [address] Signed Ryan Gan MD Copies: RYAN GAN MD ~ Electronically Signed By: LEATHA BEAVER MD 08/31/17 1233 PATIENT NAME: OWEN ATKINS OPERATIVE REPORT DATE OF : 75 REPORT #: [id number] PHYSICIAN: LEATHA BEAVER MD PCP: RYAN GAN MD REPORT IS CONFIDENTIAL AND NOT TO BE RELEASED WITHOUT AUTHORIZATION
--- NOTE | 2017-08-31 12:33 | DS ---
[facility] [address] [place], [place] [address] Signed ADMISSION DATE: 08/27/2017 DISCHARGE DATE: 08/30/2017 REASON FOR ADMISSION: This 42-year-old morbidly obese white woman is known to me from the past and has undergone sigmoid resection and repair of a colovesical fistula for diverticular disease on June 27, 2017. She underwent cystoscopy as well. Additionally resected was a left fallopian tube, which was dilated and infected also. The operation went well and she recovered nicely. Approximately two weeks ago, she began having supraumbilical pain, which worsened over time. She presented to the emergency room the night of admission and evaluated by Dr. Reina Cespedes, emergency room physician, noted to have pain in the region of the supraumbilical area. A CT scan of the abdomen was performed, which showed a fluid collection in the pelvis, which was interpreted as "abscess." Notably, she did not have elevated white count, fever, or pain in the pelvis particularly. Additionally noted was a hernia, which appeared to have incarcerated fat in the supraumbilical area. She was directly admitted to my service for further consideration of her problem. PERTINENT PHYSICAL EXAMINATION: GENERAL: An obese white woman, who was quite uncomfortable. Her pain was mostly in the supraumbilical area and tenderness was noted there as well. She had no sign of tenderness in the pelvis. CT scan showed a fluid collection in the pelvis, but not with a rind and certainly nothing to suggest the abscess proper. The hernia on the other hand did have a fat within it and some bowel and although it showed no sign of ischemic bowel, was a more likely source of her problem. HOSPITAL COURSE: As she was having tenderness in the supraumbilical area, but also complains of pain in the epigastric and right subcostal area, the possibility of biliary disease was considered. She underwent a gallbladder ultrasound, which showed no stones and subsequently a CCK-HIDA test, which was entirely normal. Her pain localized entirely to the supraumbilical area and certainly none in the pelvis. On the basis of this, it was deemed the incarcerated hernia was the source of her problem. On August 30, 2017, she underwent open repair of the hernia. Incarcerated but non strangulated or/nor ischemic omentum was noted in the hernia. The fascial defect was approximately 4 cm. Repair was undertaken with implantation of Prolene mesh in the properitoneal space in an underlay technique with fascial reapproximation as well. Notably Prolene pledgets were used in addition to the Prolene mesh and Prolene sutures. Electronically Signed By: LEATHA BEAVER MD 08/31/17 1233 PATIENT NAME: OWEN ATKINS DISCHARGE SUMMARY DATE OF : 75 REPORT #: [id number] PHYSICIAN: LEATHA BEAVER MD PCP: LYDIA GAN MD REPORT IS CONFIDENTIAL AND NOT TO BE RELEASED WITHOUT AUTHORIZATION [address] [address] Signed Postoperatively, she felt remarkably better. She is strongly wanting to be discharged to home. The discharge instructions have been enumerated to her including avoidance of lifting more than 10 pounds for the next 30 days, use of an abdominal binder whenever not supine in bed, and being sure to walk on a routine basis to avoid blood clot. DISCHARGE DIAGNOSES: 1. Incarcerated supraumbilical hernia without strangulation, status post repair. 2. Pelvic fluid collection considered innocuous and not a source of sepsis and certainly not an abscess. 3. History of sigmoid resection for complex diverticular disease including colovesical fistula and colosalpingeal infection. 4. Obesity. 5. Smoking cessation. 6. Sobriety, 103 days from alcohol. 7. Uncharacterized anxiety disorder. DISCHARGE MEDICATIONS: Will include: 1. Nicotine patch 21 mg topically daily #30, refill four. 2. Percocet 7.5/325, 1 to 2 p.o. q.4 hours p.r.n. pain #30, no refill. 3. Tylenol 325 mg p.o. q.6 h. p.r.n. pain. 4. Vitamin D3 50,000 unit capsule weekly. She will discontinue her Bactrim that she was taking previously. FOLLOWUP PLAN: She is to return to see me in approximately a month or so. She will call on Saturday for an appointment. MD IVAN Cardozo/GURDEEP /[id number] Electronically Signed By: LEATHA BEAVER MD 08/31/17 1233 PATIENT NAME: OWEN ATKINS DISCHARGE SUMMARY DATE OF : 75 REPORT #: [id number] PHYSICIAN: LEATHA BEAVER MD PCP: LYDIA GAN MD REPORT IS CONFIDENTIAL AND NOT TO BE RELEASED WITHOUT AUTHORIZATION [facility] [address], [place] [address] Signed cc: MD Dr. Reina Auguste Copies: LYDIA GAN MD ~ Electronically Signed By: LEATHA BEAVER MD 08/31/17 1233 PATIENT NAME: OWEN ATKINS DISCHARGE SUMMARY DATE OF : 75 REPORT #: [id number] PHYSICIAN: LEATHA BEAVER MD PCP: LYDIA GAN MD REPORT IS CONFIDENTIAL AND NOT TO BE RELEASED WITHOUT AUTHORIZATION
== END 2017-08-30 17:59 | disposition home or self-care (01) | DRG 354 ==
LOC: ED 18:10 → CCU 22:59 → MS 22:59
PROVIDERS: ADMIT Surgery
PROC: 0WUF0JZ Supplement Abdominal Wall with Synthetic Substitute, Open Approach (ICD-10-PCS; principal; 2017-08-27)
DX: K43.0 Incisional hernia with obstruction, without gangrene (principal); Z68.41 Body mass index [BMI] 40.0-44.9, adult; E66.01 Morbid (severe) obesity due to excess calories; Z90.49 Acquired absence of other specified parts of digestive tract; F17.210 Nicotine dependence, cigarettes, uncomplicated; F10.21 Alcohol dependence, in remission; F41.9 Anxiety disorder, unspecified
CPT/HCPCS: 00830; 36415; 71045; 74177; 76705; 78227; 80053; 81001; 82150; 83605; 83690; 84484; 84703; 85025; 87040; 88300; 96374; 96375; 99285; 99406; A9537; C1781; J0330; J0690; J1100; J1170; J1644; J1885; J2060; J2405; J2543; J2704; J2805; J3010; J7030; J7120; Q9967

== ENCOUNTER 2017-11-19 20:09 | Inpatient (IN) | payer OTHER ==
[~2017-11-19] VITALS: Ht 182.9 cm; Wt 116.5 kg
--- NOTE | ~2017-11-19 | CONS ---
[facility] [address] [place], [place] [address] Draft DATE OF CONSULTATION: 11/20/2017 ER Consult HISTORY OF PRESENT ILLNESS: The patient is a 42-year-old female, 3, para 2, VIP 1, with an LMP of approximately 11/02/2017, currently sexually abstinent, who has had left lower quadrant pain for approximately one week. The pain was initially in the left lower quadrant, but then is migrated to the right upper quadrant, right lower quadrant, and back again to the left-sided flank. The pain has been steadily worsening over this time. She has constant pain with intermittent severe sharp pain. The pain is definitely worse with any movement or walking. She has a complicated history with a ruptured diverticular abscess diagnosed in May 2017, treated with laparoscopy and drainage followed by sigmoid resection and repair of a colovesical fistula in July of 2017, and a subsequent ventral hernia repair in August of 2017. She also had a left salpingo-oophorectomy in August of 2017 because of the infection going on. During the evaluation in the emergency room, she was found to have right pelvic mass, which was further characterized as a complex right adnexal mass. The patient also had an elevated white count and because of her history, it was that she most likely had a tubo-ovarian abscess. REVIEW OF SYSTEMS: CONSTITUTIONAL: Negative for fever. RESPIRATORY: Positive for occasional cough. She denies any chest pain. GASTROINTESTINAL: Abdomen has pain and as well as reflux. She denies any nausea, vomiting, change in appetite or change in bowel movements. GENITOURINARY: She reports pressure, dysmenorrhea, menorrhagia. No dysuria. She is currently sexually abstinent. PSYCHIATRIC: Positive for anxiety, currently only on buspirone. HABITS: Positive tobacco 3/4 pack per day for 30 years. Negative for alcohol use for 6 months. She is an alcoholic in remission. Positive for marijuana use. ILLNESSES: Positive for history of hypertension, not currently treated. Positive for history of probable sleep apnea, though no sleep study has been done. Positive for anxiety disorder. Positive for reflex. Positive for hypovitamin D. SURGERIES: In May of 2017, laparoscopy with drainage of diverticular abscess. July of 2017, laparotomy with LSO, sigmoid resection, repair of colovesical fistula. August of 2017, ventral hernia repair. PATIENT NAME: OWEN ATKINS CONSULTATION DATE OF : 75 REPORT #: [id number] PHYSICIAN: LUIS ANGEL VOGEL MD PCP: OMAYRA BALES DO REPORT IS CONFIDENTIAL AND NOT TO BE RELEASED WITHOUT AUTHORIZATION [facility] [address] [place], [place] [address] Draft PHYSICAL EXAMINATION: VITAL SIGNS: Stable. She is afebrile. GENERAL: She is a well-developed, obese female, in no acute distress. She appears older than her stated age. She is fairly anxious. LUNGS: Remarkable for an occasional wheeze. HEART: Regular rate and rhythm without murmur. ABDOMEN: With active bowel sounds. Soft. She is diffusely tender, but worst in the left lower quadrant and right upper quadrant. She has no rebound. No CVA tenderness. PELVIC: The external genitalia are normal. The vagina is clear of lesions. Cervix is very tender with motion. Uterus is approximately midline, normal size, but tender. Adnexa had no palpable masses, but very tender bilaterally. EXTREMITIES: Negative. IMPRESSION: Probable tubo-ovarian abscess in a patient with a complicated GI history. Given her history, I suspect she will need to undergo hysterectomy as well as right salpingo-oophorectomy as I am expecting that there will be severe pelvic adhesions given her prior surgeries. Given her history, she is at risk for leaving a portion of the ovary with ovarian remnant syndrome as well as recurrent fistula of the bladder given her history. It is possible that a subtotal hysterectomy may be needed if there is too much scar tissue present. She understands that a total hysterectomy would render her infertile and removal of her remaining ovary will also leave her menopausal. She had no questions, requests no further information. PLAN: Begin IV antibiotics. Plan for laparotomy with probable right salpingo-oophorectomy, possible total abdominal hysterectomy, possible subtotal hysterectomy. MD ARIELLA Flores/GURDEEP /[id number] cc: Dr. Bales Copies: PATIENT NAME: OWEN ATKINS CONSULTATION DATE OF : 75 REPORT #: [id number] PHYSICIAN: LUIS ANGEL VOGEL MD PCP: OMAYRA BALES DO REPORT IS CONFIDENTIAL AND NOT TO BE RELEASED WITHOUT AUTHORIZATION [address] [address] Draft ~ PATIENT NAME: OWEN ATKINS CONSULTATION DATE OF : 75 REPORT #: [id number] PHYSICIAN: LUIS ANGEL VOGEL MD PCP: OMAYRA BALES DO REPORT IS CONFIDENTIAL AND NOT TO BE RELEASED WITHOUT AUTHORIZATION
--- NOTE | ~2017-11-19 | OR ---
[facility] [address], [place] [address] Draft DATE OF OPERATION: 11/20/2017 SURGEON: Natividad Reyes MD PREOPERATIVE DIAGNOSIS: Right tubo-ovarian abscess. POSTOPERATIVE DIAGNOSIS: Right tubo-ovarian abscess. Extensive pelvic and abdominal adhesions. PROCEDURE: Exploratory laparotomy, total abdominal hysterectomy, right salpingo-oophorectomy, appendectomy, extensive lysis of adhesions. ANESTHESIA: General ET. ESTIMATED BLOOD LOSS: 450 mL. DRAINS: Gutierrez catheter. INDICATIONS AND FINDINGS: The patient is a 42-year-old female, 3, para 2, VIP 1, who has a complicated surgical history and that she was treated for ruptured diverticular abscess in May of this year. She subsequently underwent sigmoid resection, closure of a colovesical fistula, and left salpingo-oophorectomy in July. Subsequent to this, she had an abdominal wall hernia, which required repair in August. She has been having ongoing pain, which has been worsening for the past week. On pelvic ultrasound, and CT, she was found to have a large right pelvic mass. She also had an elevated white count, and it was felt that she had a tubo-ovarian abscess related to her prior surgeries. At the time of surgery, there were extensive abdominal and pelvic adhesions. The omentum was densely adherent to the anterior peritoneum. The uterus was adherent to the sigmoid posteriorly, as well as to the left pelvic sidewall given her prior surgery. The right ovary was densely adherent to the cul-de-sac, and to the right pelvic sidewall. It was also enlarged, and cystic with a hydrosalpinx as well. DESCRIPTION OF PROCEDURE: The patient was prepped and draped in the supine position. The prior midline scar was PATIENT NAME: OWEN ATKINS OPERATIVE REPORT DATE OF : 75 REPORT #: [id number] PHYSICIAN: NATIVIDDA REYES MD PCP: OMAYRA BALES DO REPORT IS CONFIDENTIAL AND NOT TO BE RELEASED WITHOUT AUTHORIZATION [facility] [address], [place] [address] Draft used and incised from the pubis to the umbilicus. It was carried down to the fascia and the fascial incision was extended superiorly and inferiorly. The fascia was identified, and opened on the patient's left side. This allowed for entry into the abdomen, which was done sharply. Immediately on entering the abdomen, the dense adhesions of the omentum were noted. This required extensive lysis of adhesions. Primarily the omentum was divided with hemostats, and free tied with 2-0 chromic ties. This allowed for some freedom of the omentum from the upper abdomen. Some of this was also removed from the anterior peritoneum, particularly on her left side, and some of this was just completely excised. The omentum was also adherent into the left lower quadrant given her prior surgeries and this was also sharply dissected with free ties of the 2-0 chromic use were needed. Following this, the omentum could be mobilized enough that the Luis retractor could be placed. This was placed and the bowel was packed away superiorly with wet lap tapes, as well as the bolded blue towel. The round ligaments were grasped on the on the patient's right side, as it was felt that the adhesions were so dense on that side that a retroperitoneal approach would be needed to remove the adnexa. The round ligament was divided and suture ligated with 0 Vicryl. The retroperitoneal space was opened laterally and dissected downward such that the ureter could be identified. The infundibulopelvic ligament was then isolated and grasped with curved Z clamps x2 and divided with the Boyle scissors. This was followed by free tie of 0-Vicryl followed by a suture ligature of 0-Vicryl. Following this, the ovary was dissected back towards the uterus with a combination of blunt and sharp dissection off the pelvic sidewall, and also bringing it up from the posterior cul-de-sac. Following this, the specimen could be removed with clamping across the utero-ovarian pedicle. This was divided and a free tie of 0-Vicryl was placed on the uterine side at that point. The tube and ovary were thus removed on the right side. Attention was then directed to the patient's left side and the round ligament was identified and divided with the Boyle scissors. Dissection was also done laterally into the retroperitoneal space allowing for identification of the ureter and allowing the uterine vessels to be identified on that side. Sharp dissection was done anteriorly, as well as a little bit of blunt dissection to bring the bladder down off the anterior cervix. Blunt dissection was done posteriorly to the abide the sigmoid adhesions to the uterus. At this point, the uterine vessels could be isolated on the patient's left side. These were clamped with a curved Z clamp, divided with the Boyle scissors and suture ligated with 0-Vicryl. The uterine vessels were then skeletonized on the patient's right side as well and clamped with a curved Z clamp, divided with the Boyle scissor, and suture ligated with 0 Vicryl. Further dissection was done anteriorly allowing the bladder to fall down further, such that it was felt that the hysterectomy could be a complete hysterectomy rather than a subtotal, which had been originally discussed. Further dissection was done in the cardinal ligament areas on each side with each pedicle divided with the Boyle scissors and suture ligated with 0-Vicryl. This was done until the ectocervix was reached. At this point, the stapler was used across the top of the vaginal cuff, taking care to have this below the cervix, and well within our other pedicles. This was placed and clamped and the haylee PATIENT NAME: OWEN ATKINS OPERATIVE REPORT DATE OF : 75 REPORT #: [id number] PHYSICIAN: NATIVIDAD REYES MD PCP: OMAYRA BALES DO REPORT IS CONFIDENTIAL AND NOT TO BE RELEASED WITHOUT AUTHORIZATION [facility] [address], [place] [address] Draft deployed and then the specimen was removed with the knife. The cuff was then grasped with a Jasmyne clamp, and bleeding points on the cuff were controlled with cautery. The abdomen was then copiously irrigated and inspected. There was a bleeding point just above the ureter on the patient's right and this was grasped with a tonsil clamp and free tied with a 0-Vicryl. The pelvis really appeared to be quite hemostatic, although was quite raw given the extensive lysis of adhesions. Evicel was dribbled over these raw areas to aid in hemostasis. Following this, the appendix was visualized and seen to be somewhat edematous, but otherwise appeared normal, but given the state of her abdomen, it was felt that it should be removed at this time. The mesoappendix was serially divided with hemostats and free ties of 2-0 chromic. The base of the appendix was then tied with two ties of the 2-0 chromic, and the contents milked up out of the appendix with the hemostat. The specimen was then removed. The base of the appendix was treated with cautery, which had been turned down. The mesoappendix had a small raw area, which was bleeding and a [id number] suture of 2-0 chromic was placed in this area with good hemostasis noted. Following this, the omentum was evaluated, and bleeding points were controlled with cautery, as well as free ties and a 2-0 chromic. There was no evidence of any windows and the peritoneum was seen to be fairly free, particularly inferiorly. The peritoneum was then closed with running suture of 3-0 Vicryl. The fascia was closed with [id number] sutures of 0 PDS. The subcutaneous tissue was irrigated and bleeding points controlled with cautery. The subcutaneous space was closed with interrupted sutures of 3-0 Vicryl. The skin was closed with haylee. All sponge, and needle counts were correct. She tolerated the procedure well, and was taken to the recovery room in good condition. Natividad Reyes MD PJW/MODL /[id number] cc: MD Dr. Tito Aleman. Copies: MIRZA DRUMMOND MD PATIENT NAME: OWEN ATKINS OPERATIVE REPORT DATE OF : 75 REPORT #: [id number] PHYSICIAN: NATIVIDAD REYES MD PCP: OMAYRA BALES DO REPORT IS CONFIDENTIAL AND NOT TO BE RELEASED WITHOUT AUTHORIZATION [address] [address] Draft ~ PATIENT NAME: OWEN ATKINS OPERATIVE REPORT DATE OF : 75 REPORT #: [id number] PHYSICIAN: NATIVIDAD REYES MD PCP: OMAYRA BALES DO REPORT IS CONFIDENTIAL AND NOT TO BE RELEASED WITHOUT AUTHORIZATION
[~2017-11-19 20:09] MED LIST changes: +VITAMIN D50000 UNI1 PO
[2017-11-19] MEDS ORDERED: BUSPIRONE HCL15 MG PO (20:25)
--- NOTE | 2017-11-20 07:48 | NUR ---
PT TO FLOOR AT SHIFT CHANGE. REPORT RECIEVED FROM KYLIE CASTILLO. PT UP TO RESTROOM WITH 1 PA. IV INFUSING IN RIGHT HAND. PT DENIES CONCERNS.
--- NOTE | 2017-11-20 08:22 | NUR ---
PATIENT ADMITTED TO MED SURG. PATIENT RATES ABDOMINAL PAIN 7/10 AND 6/10 AFTER PAIN MEDICATIONS. PATIENT IS VERY ANXIOUS, ATIVAN 2MG GIVIN P.O. WITH MINIMAL SIP OF WATER. HEPARIN SQ GIVEN TO LLQ. IV AMPICILLIN INFUSING, TO BE FOLLOWED BY RAI. PATIENT IS RESTING IN BED, USING CELL PHONE, SPOUSE IN ROOM WITH PATIENT.
--- NOTE | 2017-11-20 08:56 | NUR ---
LR WITH STRAIGHT TUBING HANGING IN ROOM. PATIENT IS VISABLY MORE RELAXED, RESTING IN BED. PATIENT HAS VOIDED 200ML CLEAR YELLOW URINE, IS ABLE TO AMBULATE INDEPENDANTLY TO BATHROOM. IV LEVAQUIN TO BE INFUSED FOR 90 MINUTES.
--- NOTE | 2017-11-20 09:42 | NUR ---
PATIENT TO SURGERY
--- NOTE | 2017-11-20 13:34 | NUR ---
PT TAKEN TO SURGERY. WILL CONTINUE TO FOLLOW NEEDED
--- NOTE | 2017-11-20 16:22 | NUR ---
11/20/17 1622 Kristy Gonsales 1437 PT ARRIVED IN PACU C/O ABD PAIN AND PULLING AT OXYGEN MASK. ANESTHESIA AT BEDSIDE GIVING FENTANYL IV. 1445 PT C/O NAUSEA AND CRYING. ZOFRAN AND VERSED GIVEN IVP BY ANESTHESIA. PULLING OXYGEN MASK OFF. O2 AT 4L VIA NC ON WITH SATS 95% WHEN PT AWAKE. DESATS TO 88% WHEN SLEEPING. ENCOURAGED DEEP BREATHING. 1450 CRYING AND C/O ABD PAIN. FENTANYL AND KETAMINE GIVEN IVP BY ANESTHESIA. 1500 PT RESTING. O2 SATS 88% ON 4L NC. ENCOURAGED DEEP BREATHING AND SATS INCREASED TO 95%. PT THEN STARTS CRYING. ENCOURAGED PT TO WEAR O2 MASK. O2 AT 10L VIA MASK WITH SATS 99%. 1507 PT CRYING AND GRABBING STOMACH. STATES "IT HURTS SO BAD." FENTANYL GIVEN IVP BY ANESTHESIA. ICE PACK PLACED ON PT'S STOMACH FOR COMFORT. 1510 PT SNORING. SATS 99% ON 10L MASK. 1520 PT AWAKENS AND PULLING MASK OFF FACE. O2 AT 4L VIA NC PLACED WITH SATS 95%. C/O ABD PAIN. 1526 DILAUDID 0.5MG GIVEN IVP BY RN. 1540 RESTING. REU. SATS 90-92% ON 4L NC. 1550 C/O ABD PAIN, THEN FALLS BACK TO SLEEP. TO MED SURG ROOM 119. REPORT TO KYLIE BUNDY.
--- NOTE | 2017-11-20 16:29 | NUR ---
ADMINISTERED 1MG DILAUDID FOR 10/10 PAIN. PT STATES IT IS WORSE THAN CHILD . PT SNORES INBETWEEN SNORES THOUGH. DRESSING CDI UNDER BINDER, WHAT CAN BE SEEN. SALINAS DRAINING LIGHT YELLOW URINE. IVF RUNNING AT SLOW DRIP. PULSE 91 SATS 92
[2017-11-20] MEDS ORDERED: METFORMIN HCL500 M1 PO (17:30)
--- NOTE | 2017-11-20 18:20 | NUR ---
PT HAD VERY LONG SURGERY TODAY. CAME BACK TO FLOOR AGITATED, PAINFUL AND ANXIOUS. GIVEN DILAUDID AND COLD PACK TO FOREHEAD. BINDER AND DRESSING CDI. SALINAS TO BE REMOVED IN AM. HAS PO ATIVAN. VS STABLE. ON 2LNC.
--- NOTE | 2017-11-20 20:10 | NUR ---
Charge nurse rounding note: Resting, eyes closed, no c/o pain or n/v.
--- NOTE | 2017-11-20 20:25 | NUR ---
PATIENT STARTED VOMITING AFTER GETTING IV DILAUDID 1MG AND 1MG PO ATIVAN. PATIENT VOMITTED APPROXIMATELY 200MLS AND NAUSEA SUBSIDED, BUT PATIENT ASKED IF SHE COULD GET SOME IV ATIVAN SHE HAD VOMITED IMMEDIATELY AFTER TAKING THE PO MEDICATION. CALLED PLACED TO AND ORDER FOR 1MG IV ATIVAN TIMES 1 DOSE WAS GIVEN.
--- NOTE | 2017-11-20 21:29 | NUR ---
VITALS AND I&OS DONE AND CHARTED. BEDSIDE TABLE AND CALL LIGHT WITHIN REACH.
--- NOTE | 2017-11-20 21:30 | NUR ---
PATIENT RETING QUIETLY AFTER 1MG IV ATIVAN GIVEN. EYES CLOSED RESPIRATIONS EVEN. CALL LIGHT IN REACH.
--- NOTE | 2017-11-20 22:00 | NUR ---
PATIENT SLEEPING QUIETLY AT THIS TIME. RESPIRATIONS EVEN AND REGULAR BUT O2 SATS DIPPING TO 87% ON RA, SO 1 LITER O2 PER NC PLACED AND SATS RETURNED TO 96-98%. PATIENT AWOKE BRIEFLY AND HAD NO COMPLAINTS AND WENT RIGHT BACK TO SLEEP. CALL LIGHT IN REACH.
--- NOTE | 2017-11-21 01:05 | NUR ---
PATIENT JUST GIVEN ANOTHER 1MG IV DILAUDID AFTER SLEEPING THE LAST SEVERAL HOURS. PAIN IS AGAIN AT 8/10. PATIENT IS HAVING NO NAUSEA AT THIS TIME. PATIENT GOING TO TRY AND GO BACK TO SLEEP. CALL LIGHT IN REACH.
--- NOTE | 2017-11-21 01:37 | NUR ---
PATIENT'S PAIN REMAINS 8/10 IN HER ABD. TWO PO NORCO GIVEN AND PATIENT IS GOING TO TRY AND GO BACK TO SLEEP. CALL LIGHT IN REACH.
--- NOTE | 2017-11-21 01:57 | NUR ---
VITALS AND I&OS DONE AND CHARTED. BEDSIDE TABLE AND CALL LIGHT WITHIN REACH.
--- NOTE | 2017-11-21 04:10 | NUR ---
PATIENT ASKING FOR ANXIETY MEDICATION. 1MG PO ATIVAN GIVEN. PATIENT STOOD AT BEDSIDE WITH STANDBY ASSIST AND TOLERATED THIS WELL. PATIENT SHUFFLED AROUND AT BEDSIDE ON HER FEET WITHOUT DIFFICULTY AND THIS NURSE STANDING BY FOR ASSISTANCE. BED STRAIGHTENED, LUNGS CLEAR, ABD PAIN AT 6/10, BUT TRYING TO GO BACK TO SLEEP AT THIS TIME. CALL LIGHT IN REACH.
--- NOTE | 2017-11-21 05:55 | NUR ---
VITALS AND I&OS DONE AND CHARTED. BEDSIDE TABLE AND CALL LIGHT WITHIN REACH.
--- NOTE | 2017-11-21 06:30 | NUR ---
PATIENT MEDICATED FOR PAIN THE FIRST PART OF THE SHIFT WITH IV DILAUDID AND HAS TRANSITIONED TO PO NORCO X2 AT THIS TIME. PATIENT HAS BEEN MEDICATED X2 FOR ANXIETY THIS SHIFT. PATIENT INTIALLY VOMITED THE 1ST DOSE OF PO ATIVAN AND HAD TO HAVE A DOSE IV AFTER OBTAINING AN ORDER FROM . PATIENT'S NAUSEA RESOLVED SHORTLY AFTER EMISIS AND NO MORE NAUSEA NOTED FOR THE SHIFT. PATIENT'S MIDLINE ABD DRESSING HAS REMAINED CDI AND ABD BINDER REMAINS IN PLACE. PATIENT DID HAVE TO BE PLACED ON 1 LITER NC O2 FOR SATS DOWN TO 87% WHILE ASLEEP, BUT 95-98% ON 1L NC PER CONTINOUS O2 SAT.
--- NOTE | 2017-11-21 08:00 | NUR ---
PT IN BED AND COMPLAINS OF PAIN AND ANXIETY, GIVEN PRN MEDS. PROVIDER AT BEDSIDE, ADDRESSED CONCERNS OF ORDERS FOR NICOTINE PATCH. PT IS TOLERATING CLEARS, DIET TO BE ADVANCED TODAY. PT DENIES SOB, PT USING INHALER FOR WHEEZE. WILL CONTINUE TO MONITOR.
[2017-11-21] MEDS ORDERED: TYLENOL325 MG PO (09:18)
[2017-11-21] MEDS ORDERED: IBU-200200 MG PO (09:19)
[2017-11-21] MEDS ORDERED: WOMEN'S MULTI200 MCG PO (09:20)
--- NOTE | 2017-11-21 09:21 | NUR ---
MED REC COMPLETE
--- NOTE | 2017-11-21 11:39 | NUR ---
PT RESTING IN BED-ALERT, ORIENTED AND SUPPORTED BY HER . HAD A GOOD VISIT WITH PT, SHE MENTIONED SHE IS AT 6 MONTHS SOBRIETY, AND SEEMS EXCITED. SHE BEGAN TO LAMENT THE FACT THAT THERE ARE THINGS JUST IN EVERYDAY LIFE THAT SHE IS FINDING HARDER TO DO-OPENING JARS,ETC. GAVE SOME SUGGESTIONS, ALSO WE DISCUSSED HER WRITING OUT WITH HER GOALS FOR THEM A COUPLE AND INDIVIDUAL. PT MENTIONED ALSO THAT SHE WAS VERY HOT, AND NORMALLY HAS A FAN ON IN HER HOME. LOCATED A FAN, STAFF PLACED IN HER RM. EXTENDED A BLESSING, WILL CONTINUE TO FOLLOW NEEDED. RECOMMENDED TO HER RN THAT MAYBE P.T. AND OT MIGHT BE ABLE TO GIVE PT SOME ASSISTANCE
--- NOTE | 2017-11-21 12:00 | NUR ---
PT HAVING CONSIDERABLE ANXIETY. GAVE PT PRN ATIVAN PO. ENCOURAGED DEEP BREATHING. PT IS AWARE THAT IV MEDS ARE DISCOURAGED OR D/C TODAY. WILL CONTINUE TO MONITOR.
--- NOTE | 2017-11-21 13:18 | NUR ---
D/C PT SALINAS. EARLIER THIS SHIFT PT WAS ANXIOUS REGARDING SEVERAL HOSPITAL EMPLOYEES IN THE ROOM AT ONCE, DELAYED REMOVAL OF SALINAS DUE TO PT CONDITION, MEDICATED WITH LOREZAPAM, PT TOLERATED D/C WELL. PT STATED THAT PREVIOUS PAIN MED SHE HASN'T TOLERATED WELL, INTERMITTENT ITCHING, AND DOES NOT MANAGE PAIN. WILL TRY PERCOCET, PT STATES HISTORICALLY THAT HAS WORKED BETTER FOR HER. ENCOURAGED UP TO CHAIR AND SITTING AT THE SIDE OF THE BED.
--- NOTE | 2017-11-21 16:13 | NUR ---
PT BECAME VERY AGITATED AND REQUESTED DR VOGEL TO COME TO BEDSIDE, WANTS DIFFERENT PAIN MANAGEMENT. NOTIFIED PROVIDER, ORDERS WRITTEN, GAVE ONE TIME DOSE ORDERED. PHARMACY REQUESTED THAT PREVIOUS NARCOTICS BE D/C TO PREVENT CONFUSION OR OVERDOSE, PREVIOUS MEDICATIONS THAT WERE NOT WORKING FOR PT WERE D/C REQUESTED.
--- NOTE | 2017-11-21 17:16 | NUR ---
PT HAS HAD A DIFFICULT DAY WITH PAIN MANAGEMENT AND ANXIETY. PROVIDER WAS CALLED TO BEDSIDE AND PAIN REASSESSED. PT REQUESTS RN TO WRITE PAIN MEDS ADMINISTRATION TIMES ON HER BOARD, AND RN WORKED WITH PT TO COME UP WITH A PLAN TO "STAY AHEAD" OF HER PAIN. VSS. PT UP TO COMMODE AND VOIDING SUCCESSFULLY, MINIMAL RESIDUALS VIA BLADDER SCAN.
--- NOTE | 2017-11-21 20:17 | NUR ---
medicated with Ativan 1mg po c/o anxiety, up to brp, voided QS yellow urine, bladder scanned for residual, Cooperative with assessment and procedures
--- NOTE | 2017-11-21 20:24 | NUR ---
VITALS AND I&OS DONE AND CHARTED. BLADDER SCAN DONE AND CHARTED. BEDSIDE TABLE AND CALL LIGHT WITHIN REACH.
--- NOTE | 2017-11-21 21:09 | NUR ---
STOOD BY WHILE THE PT WENT FROM THE BATHROOM TO BED. BLADDER SCANNED HER AND CHARTED IT. BEDSIDE TABLE AND CALL LIGHT WITHIN REACH.
--- NOTE | 2017-11-21 23:13 | NUR ---
Medicated with Percocet 10/325 1 tab per c/o 12/17 abd pain. Abd dressing cdi, passing gas, no bm. O2 1LNC in place, no c/o n/v, Less anxious,
--- NOTE | 2017-11-22 01:28 | NUR ---
resting, no c/o sob, O2 1L NC in place, no further c/o pain or n/v. Scant amount of vaginal discharge stated
--- NOTE | 2017-11-22 02:26 | NUR ---
UP TO BRP, VOIDED,MEDIUM YELLOW COLORED URINE. VOIDED 900CC, POST VOID BLADDER SCANNED SHOWED 196CC RESIDULA. NO C/O /URINARY VAGINAL ITCHING OR PAIN. STATED SCANT RED COLORED VAGINAL DRAINAGE. C/O ABD PAIN, MEDICATED WITH PERCOCET PER C/O PAIN. ABD DRESSING CDI. MARVEL IN PLACE. EDGES WELL APPROXIMATED. BACK TO BED W/O PROBLEMS, O2 IL IN PLACE
--- NOTE | 2017-11-22 03:11 | NUR ---
UP TO BRP, VOIDED 400CC LIGHT YELLOW URINE, POST VOID BLADDER SCANNED WITH 70CC RESIDUAL. BACK TO BED, C/O INCREASED ANXIETY, MEDICATED WITH ATIVAN 1MG PO.
--- NOTE | 2017-11-22 05:08 | NUR ---
PT GETS UP TO BRP WITH MINIMUM OF ASSIST, VOIDING CLEAR YELLOW URINE, POST VOID RESULD VARIES BETWEEN 49-225CC. DENIES C/O PAIN/BURNING DURING URINATION SCANT LIGHT RED VAGINAL DISCHARGE PRESENT. cONTINUES TO HAVE OFF AND ON BURSTS OF ANXIETY WITH CRYING EPISODES, EASILY REDIRECTED. TAKES ATIVAN Q4HPRN WITH MILD TO GOOD ANXIETY RELIEF. hAS BEEN MEDICATED 2X WITH ATIVA, THIS SHIFT. HAS BEEN MEDICATED 3X WITH PERCOCET PER C/O ABD PAIN. WITH GOOD TO FAIR RELIEF. ABD DRESSING CDI, MIDLINE INCISION WITH MARVEL, EDGES WELL APPROX, CD.PASSING GAS, NO BM. NO C/O ADVERSE REACTION TO IV ABX. RECEIVED 1X SONATA FOR INSOMNIA ITH FAIR RESULTS, SLEPT 2H.
--- NOTE | 2017-11-22 05:09 | NUR ---
VITALS AND I&OS DONE AND CHARTED. BLADDER SCAN DONE AND CHARTED BY RN ALE. BEDSIDE TABLE AND CALL LIGHT WITHIN REACH.
--- NOTE | 2017-11-22 06:31 | NUR ---
c/o abd pain,03/19 medicated with Percocet 1 tab, Up to brp, voided 600cc clean yellow urine with post void residual of 33cc. crying, Back to bed, repositions self
[2017-11-22] MEDS ORDERED: ATIVAN1 MG PO (08:19)
[2017-11-22] MEDS ORDERED: PAXIL20 MG PO (08:19)
[2017-11-22] MEDS ORDERED: NICOTINE PATCH1 EAC4 TD (08:21)
[2017-11-22] MEDS ORDERED: IBU800 MG PO (08:23)
[2017-11-22] MEDS ORDERED: GABAPENTIN300 MG PO (08:29)
[2017-11-22] MEDS ORDERED: PERCOCET 10-321 EACH PO (08:31)
--- NOTE | 2017-11-22 09:52 | NUR ---
PT AT BEDSIDE WITH SPOUSE. PT STATES SHE FEELS BETTER TODAY, DR VOGEL DIRECTED TO REPLACE DRESSING, PLACED MEPILEX AND REPLACED BINDER FOR COMFORT. PT HAS BEEN ANXIOUS THIS AM, GAVE PRN ATIVAN. PREPARING FOR DISCHARGE.
--- NOTE | 2017-11-22 10:42 | NUR ---
PT RESTING IN BED, THIS MORNING PT WAS SMILING WHEN I ENTERED. SHE QUICKLY SHARED THAT SHE SLEPT MUCH BETTER LAST NIGHT, AND PLANS TO BE DC'D TODAY. I OFFERED HER A NOTEBOOK TO BEGIN TO JOURNAL IN, SHE SAID SHE WOULD LIKE ONE. SHE SEEMED THANKFUL, REQUESTED PRAYER. WILL FOLLOW NEEDED
== END 2017-11-22 10:35 | disposition home or self-care (01) | DRG 743 ==
LOC: ED 20:09 → MS 11-20 06:22
PROVIDERS: ADMIT Obstetrics & Gynecology
PROC: 0UT00ZZ Resection of Right Ovary, Open Approach (ICD-10-PCS; 2017-11-20)
PROC: 0DTJ0ZZ Resection of Appendix, Open Approach (ICD-10-PCS; 2017-11-20)
PROC: 0UT90ZZ Resection of Uterus, Open Approach (ICD-10-PCS; principal; 2017-11-20 11:00)
PROC: 0DNU0ZZ Release Omentum, Open Approach (ICD-10-PCS; 2017-11-20 11:00)
PROC: 0UT50ZZ Resection of Right Fallopian Tube, Open Approach (ICD-10-PCS; 2017-11-20 11:00)
DX: N70.93 Salpingitis and oophoritis, unspecified (principal); N70.11 Chronic salpingitis; N73.6 Female pelvic peritoneal adhesions (postinfective); R06.2 Wheezing; F41.0 Panic disorder [episodic paroxysmal anxiety]; F43.10 Post-traumatic stress disorder, unspecified; F17.210 Nicotine dependence, cigarettes, uncomplicated; F10.21 Alcohol dependence, in remission; E66.9 Obesity, unspecified; Z68.34 Body mass index [BMI] 34.0-34.9, adult; Z79.899 Other long term (current) drug therapy
CPT/HCPCS: 00840; 36415; 51798; 74177; 76705; 76830; 76856; 80053; 81001; 83690; 84703; 85025; 88304; 88307; 94640; 94762; 96374; 96375; 96376; 99285; J0290; J0330; J0735; J1100; J1170; J1644; J1885; J1956; J2060; J2250; J2405; J2704; J2795; J3010; J3475; J7030; J7120; Q9967

== ENCOUNTER 2018-02-24 11:17 | Emergency (ER) | payer OTHER ==
[~2018-02-24] VITALS: Ht 182.9 cm; Wt 116.5 kg
[~2018-02-24 11:17] MED LIST changes: +ATIVAN1 MG PO; +BUSPIRONE HCL15 MG PO; +GABAPENTIN300 MG PO; +IBU-200200 MG PO; +IBU800 MG PO; +METFORMIN HCL500 M1 PO; +NICOTINE PATCH1 EAC4 TD; +PAXIL20 MG PO; +PERCOCET 10-321 EACH PO; +WOMEN'S MULTI200 MCG PO
[2018-02-24] MEDS ORDERED: PENICILLIN V P500 MG PO (11:42)
[2018-02-24] MEDS ORDERED: TRAZODONE HCL100 MG PO (12:12)
[2018-02-24] MEDS ORDERED: OMEPRAZOLE20 MG PO (14:14)
[2018-02-24] MEDS ORDERED: NORCO 5-325 TA1 EACH PO (14:14)
[2018-02-24] MEDS ORDERED: ONDANSETRON ODT8 MG PO (14:14)
== END 2018-02-24 14:48 | disposition home or self-care (01) ==
LOC: ED 11:17
DX: K29.70 Gastritis, unspecified, without bleeding (principal); K42.9 Umbilical hernia without obstruction or gangrene; F17.200 Nicotine dependence, unspecified, uncomplicated; Z79.899 Other long term (current) drug therapy
CPT/HCPCS: 74177; 80053; 81001; 83690; 85025; 96374; 99284; J1170; Q9967

== ENCOUNTER 2018-03-09 13:06 | Emergency (ER) | payer OTHER ==
[~2018-03-09] VITALS: Ht 182.9 cm; Wt 116.4 kg
[~2018-03-09 13:06] MED LIST changes: +NORCO 5-325 TA1 EACH PO; +OMEPRAZOLE20 MG PO; +ONDANSETRON ODT8 MG PO; +PENICILLIN V P500 MG PO; +TRAZODONE HCL100 MG PO
--- OUTSIDE RECORDS SUMMARY | 2018-03-09 13:12 | XMS ---
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 Katelynn has no Care Guidelines for this patient. Gui VISIT COUNT (12 MO.) [address] [facility] [place] TOTAL 6 NOTE: Visits indicate total known visits. ED/C VISIT TRACKING (12 MO.) 03/09/2018 13:07 [facility] [place] TYPE: Emergency COMPLAINT: - ABDOMINAL PAIN 02/24/2018 11:18 [facility] [place] TYPE: Emergency COMPLAINT: - ABD PAIN DIAGNOSES: - Nicotine dependence, unspecified, uncomplicated - Umbilical hernia without obstruction or gangrene - Gastritis, unspecified, without bleeding - Other [facility] (current) drug therapy - Unspecified abdominal pain 11/19/2017 20:09 [facility] [place] [place] TYPE: Emergency COMPLAINT: - ABD PAIN 08/27/2017 18:10 [facility] [place] [place] TYPE: Emergency COMPLAINT: - ABD PAIN 06/23/2017 03:17 [facility] [place] TYPE: Emergency COMPLAINT: - L SIDED FLANK PAIN 05/15/2017 06:39 [facility] [place] TYPE: Emergency COMPLAINT: - PELVIC/ABD PAIN/VOMITING INPATIENT VISIT TRACKING (12 MO.) No inpatient visits to display in this time frame [email or web address]
== END 2018-03-09 14:36 | disposition home or self-care (01) ==
LOC: ED 13:06
DX: K43.9 Ventral hernia without obstruction or gangrene (principal); F41.9 Anxiety disorder, unspecified; F43.10 Post-traumatic stress disorder, unspecified; F17.200 Nicotine dependence, unspecified, uncomplicated; Z79.899 Other long term (current) drug therapy
CPT/HCPCS: 99283

== ENCOUNTER 2018-10-04 15:01 | Emergency (ER) | payer OTHER ==
[~2018-10-04] VITALS: Ht 182.9 cm; Wt 137.8 kg
--- OUTSIDE RECORDS SUMMARY | 2018-10-04 15:04 | XMS ---
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 Medicine: Sports Medicine 03/10/2018-Current PHONE: Unknown Katelynn has no Care Guidelines for this patient. [place] VISIT COUNT (12 MO.) 4 [facility] TOTAL 4 NOTE: Visits indicate total known visits. ED/UCC VISIT TRACKING (12 MO.) 10/04/2018 15:02 [facility] [place] TYPE: Emergency COMPLAINT: - DIZZINESS,VOMITING,VISION PROBLEMS 03/09/2018 13:07 [facility] [place] TYPE: Emergency COMPLAINT: - ABDOMINAL PAIN DIAGNOSES: - Anxiety disorder, unspecified - Post-traumatic stress disorder, unspecified - Nicotine dependence, unspecified, uncomplicated - Ventral hernia without obstruction or gangrene - Unspecified abdominal pain - Other pen[facility]iary (current) drug therapy 02/24/2018 11:18 [facility] [place] TYPE: Emergency COMPLAINT: - ABD PAIN DIAGNOSES: - Nicotine dependence, unspecified, uncomplicated - Umbilical hernia without obstruction or gangrene - Gastritis, unspecified, without bleeding - Other penitentiary (current) drug therapy - Unspecified abdominal pain 11/19/2017 20:09 [facility] [place] TYPE: Emergency COMPLAINT: - ABD PAIN INPATIENT VISIT TRACKING (12 MO.) No inpatient visits to display in this time frame [email or web address]
[2018-10-04] MEDS ORDERED: IRON236 MG PO (15:30)
[2018-10-04] MEDS ORDERED: ZOFRAN4 MG SL (18:12)
[2018-10-04] MEDS ORDERED: PANTOPRAZOLE SO40 MG PO (18:12)
[2018-10-04] MEDS ORDERED: ATIVAN1 MG PO (18:14)
== END 2018-10-04 18:24 | disposition home or self-care (01) ==
LOC: ED 15:01
DX: K52.9 Noninfective gastroenteritis and colitis, unspecified (principal); F32.9 Major depressive disorder, single episode, unspecified; F41.9 Anxiety disorder, unspecified; F17.200 Nicotine dependence, unspecified, uncomplicated; F43.10 Post-traumatic stress disorder, unspecified; Z90.49 Acquired absence of other specified parts of digestive tract; Z90.710 Acquired absence of both cervix and uterus; Z79.899 Other long term (current) drug therapy
CPT/HCPCS: 74177; 80053; 81001; 83605; 83690; 84484; 85025; 96361; 99284-25; C9113; J2060; J2405; J7030; Q9967

== ENCOUNTER 2018-10-13 13:24 | Emergency (ER) | payer OTHER ==
[~2018-10-13] VITALS: Ht 182.9 cm; Wt 138.3 kg
[~2018-10-13 13:24] MED LIST changes: +IRON236 MG PO; +PANTOPRAZOLE SO40 MG PO; +ZOFRAN4 MG SL
--- OUTSIDE RECORDS SUMMARY | 2018-10-13 13:28 | XMS ---
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 Care History Medical/Surgical 10/06/2018 [facility] - Patient is currently established with [facility]. If patient is seen in the ED during business hours. Please contact CHWs at [facility]. Care Recommendation: This patient has had 5 or more Emergency Department visits in the last 12 months.\T\nbsp; Patient requires education on the scope and purpose of the ED as an acute care provider not a Primary Care Provider and should not be utilized for chronic conditions.\T\nbsp; These are guidelines and the provider should exercise clinical judgment when providing care. E.D. VISIT COUNT (12 MO.) 5 [facility] TOTAL 5 NOTE: Visits indicate total known visits. ED/UCC VISIT TRACKING (12 MO.) 10/13/2018 13:26 [facility] [place] TYPE: Emergency COMPLAINT: - URINE PROBLEM,TICK BITE 10/04/2018 15:02 [facility] [place] TYPE: Emergency COMPLAINT: - DIZZINESS,VOMITING,VISION PROBLEMS DIAGNOSES: - Post-traumatic stress disorder, unspecified - Acquired absence of other specified parts of digestive tract - Noninfective gastroenteritis and colitis, unspecified - Nicotine dependence, unspecified, uncomplicated - Nausea with vomiting, unspecified - Acquired absence of both cervix and uterus - Anxiety disorder, unspecified - Other terminal worker (current) drug therapy - Major depressive disorder, single episode, unspecified 03/09/2018 13:[address] [facility] [place] TYPE: Emergency COMPLAINT: - ABDOMINAL PAIN DIAGNOSES: - Anxiety disorder, unspecified - Post-traumatic stress disorder, unspecified - Nicotine dependence, unspecified, uncomplicated - Ventral hernia without obstruction or gangrene - Unspecified abdominal pain - Other senior care (current) drug therapy 02/24/2018 11:[address] [facility] [place] TYPE: Emergency COMPLAINT: - ABD PAIN DIAGNOSES: - Nicotine dependence, unspecified, uncomplicated - Umbilical hernia without obstruction or gangrene - Gastritis, unspecified, without bleeding - Other terminal worker (current) drug therapy - Unspecified abdominal pain 11/19/2017 [facility]:09 [facility] [place] [facility] COMPLAINT: - ABD PAIN INPATIENT VISIT TRACKING (12 MO.) No inpatient visits to display in this time frame [email or web address]
[2018-10-13] MEDS ORDERED: KEFLEX500 MG PO (15:47)
[2018-10-13] MEDS ORDERED: BACTRIM DS TAB1 EACH PO (15:47)
== END 2018-10-13 15:56 | disposition home or self-care (01) ==
LOC: ED 13:24
DX: R30.0 Dysuria (principal); R21 Rash and other nonspecific skin eruption; F17.200 Nicotine dependence, unspecified, uncomplicated; F41.9 Anxiety disorder, unspecified; Z90.49 Acquired absence of other specified parts of digestive tract; Z90.710 Acquired absence of both cervix and uterus; Z79.899 Other long term (current) drug therapy
CPT/HCPCS: 81001; 99283

== ENCOUNTER 2018-12-05 07:20 | Day surgery (SDC) | payer OTHER ==
[~2018-12-05] VITALS: Ht 182.9 cm; Wt 139.7 kg
[~2018-12-05 07:20] MED LIST changes: +BACTRIM DS TAB1 EACH PO; +FERROUS SULFAT325 MG PO; +KEFLEX500 MG PO; +LIPITOR20 MG PO; +LISINOPRIL10 MG PO; +PRILOSEC OTC20 MG PO
--- NOTE | 2018-12-05 09:17 | NUR ---
12/05/18 0917 Sheets,Carley 0906 PT ARRIVED TO PACU WITH ORAL AIRWAY IN PLACE, PT NONAROUSABLE TO PAINFUL STIMULI. PT ON 10L VIA MASK, RESP EVEN AND UNLABORED.
--- NOTE | 2018-12-06 22:35 | OR ---
[facility] [address], [place] [address] Signed DATE OF OPERATION: 12/05/2018 SURGEON: Leatha Beaver MD PREOPERATIVE DIAGNOSES: 1. Hemoccult-positive stool and low-grade normocytic anemia. 2. Severe anxiety disorder. POSTOPERATIVE DIAGNOSES: 1. Diffuse gastritis and duodenitis. 2. Two small polyps of colon (excised). 3. Severe anxiety disorder. PROCEDURES PERFORMED: 1. Esophagogastroduodenoscopy with biopsy. 2. Total colonoscopy to cecum with cold morcellation polypectomy x2. ANESTHESIA: Intravenous sedation, propofol and Versed (Leatha Kwok CRNA). HISTORY: This morbidly obese 43-year-old white woman is a patient of Dr. Roldan and is known to have normocytic anemia and heme-positive stool. The patient has profound anxiety issues as well. 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 She has developed an incisional hernia and she is working on weight loss efforts anticipating repair of that someday. She has been abstinent of alcohol for 18 months, which was previously a significant problem for her. She is now admitted to undergo upper endoscopy and colonoscopy for normocytic anemia that has been noted. She is also noted to have heme-positive stools. She was on steroids recently for a certain amount of time without cytoprotection for that. She understands the risks of bleeding, infection, and perforation related upper endoscopy and colonoscopy and wished to proceed. FINDINGS: Upper endoscopy showed normal esophagus and flap valve, but diffuse edematous gastritis as well as duodenitis. CLOtest was negative 30 minutes post procedure. On colonoscopy, the prep was good and complete colonoscopy was undertaken to the cecum without question. There was no sign of lesion to account for bleeding or anemia there. The anastomosis was widely patent and well healed. There were two very small polyps, Electronically Signed By: LEATHA BEAVER MD 12/06/18 2235 PATIENT NAME: OWEN ATKINS OPERATIVE REPORT DATE OF : 75 REPORT #: [id number] PHYSICIAN: LEATHA BEAVER MD PCP: THERESA ROLDAN MD REPORT IS CONFIDENTIAL AND NOT TO BE RELEASED WITHOUT AUTHORIZATION [facility] [address], [place] [address] Signed both excised with cold morcellation technique. DESCRIPTION OF PROCEDURE: The patient was brought to the endoscopy suite and placed in lateral decubitus position, given intravenous sedation with propofol and Versed under the watchful eye of the nurse endocrinologist. A bite block was placed. An Olympus video upper endoscope was passed into the hypopharynx. The vocal cords appeared normal, though the surrounding soft tissue was edematous and inflamed. The scope was advanced into the esophagus throughout its length, it appeared actually normal. There was no sign of neoplasm, stricture, or varices. The scope was advanced to the stomach, which was insufflated with air and edematous inflamed mucosa was noted. There was some bile within the stomach. The scope was passed through the pylorus and passed through into the duodenum. The duodenum had marked edema and inflammation as well. There was no sign of ulceration or erosion, however. Biopsies were obtained. Scope was withdrawn. A biopsy was then taken of the antrum and more proximal stomach for both MARCIE and pathologic testing. Retroflexed view confirmed a reasonably good flap valve. The scope was withdrawn to the distal esophagus. The mucosa appeared normal overall. Careful withdrawal showed no other findings. Plans were then made for colonoscopy. Digital rectal examination was performed and was normal. An Olympus video colonoscope passed into the rectum and manipulated throughout the colon ultimately intubating the cecum. Appendiceal orifice and ileocecal valve were normal. Scope was withdrawn from that point. Examination showed no sign of abnormality until approximately the rajendra left colon, where a small polyp was noted. This was excised with cold morcellation technique. Further down was another similar polyp also excised similarly. The coloproctostomy appeared widely patent and with excellent anatomic configuration. There was no sign of suture granuloma or anything of that sort. The rectum was normal. Retroflexed view was normal as well. The scope was removed and the patient was taken to recovery room in good condition. CONCLUDING DIAGNOSIS: She may have anemia based on the chronic gastritis or duodenitis, though there is no evidence of ulcer proper. B12 and folate level may be advisable to obtain if there is issue of vitamin absorption given her gastritis and duodenitis. FOLLOWUP PLAN: She will return to the ongoing care of Dr. Roldan. I will be seen as her scheduled plan for her weight loss efforts towards incisional hernia repair. Electronically Signed By: LEATHA BEAVER MD 12/06/18 8005 PATIENT NAME: OWEN ATKINS OPERATIVE REPORT DATE OF : 75 REPORT #: [id number] PHYSICIAN: LEATHA BEAVER MD PCP: THERESA ROLDAN MD REPORT IS CONFIDENTIAL AND NOT TO BE RELEASED WITHOUT AUTHORIZATION [address] [place] [address] Signed MD IVAN Cardozo/VERNONL /[id number] cc: Theresa Roldan MD Copies: ~ Electronically Signed By: LEATHA BEAVER MD 12/06/18 2235 PATIENT NAME: OWEN ATKINS OPERATIVE REPORT DATE OF : 75 REPORT #: [id number] PHYSICIAN: LEATHA BEAVER MD PCP: THERESA ROLDAN MD REPORT IS CONFIDENTIAL AND NOT TO BE RELEASED WITHOUT AUTHORIZATION
== END 2018-12-05 10:10 | disposition home or self-care (01) ==
LOC: OPS 07:20 → DS 07:20 → OPS 08:30 → DS 08:30 → OPS 10:10
PROVIDERS: Surgery
PROC: 0DB68ZX Excision of Stomach, Via Natural or Artificial Opening Endoscopic, Diagnostic (ICD-10-PCS; 2018-12-05)
PROC: 0DBN8ZZ Excision of Sigmoid Colon, Via Natural or Artificial Opening Endoscopic (ICD-10-PCS; 2018-12-05)
PROC: 0DBL8ZZ Excision of Transverse Colon, Via Natural or Artificial Opening Endoscopic (ICD-10-PCS; 2018-12-05)
PROC: 0DB98ZX Excision of Duodenum, Via Natural or Artificial Opening Endoscopic, Diagnostic (ICD-10-PCS; principal; 2018-12-05 08:30)
PROC: 0DB78ZX Excision of Stomach, Pylorus, Via Natural or Artificial Opening Endoscopic, Diagnostic (ICD-10-PCS; 2018-12-05 08:30)
DX: D12.5 Benign neoplasm of sigmoid colon (principal); D12.3 Benign neoplasm of transverse colon; K26.7 Chronic duodenal ulcer without hemorrhage or perforation; K29.50 Unspecified chronic gastritis without bleeding; K21.9 Gastro-esophageal reflux disease without esophagitis; I10 Essential (primary) hypertension; F41.1 Generalized anxiety disorder; F32.9 Major depressive disorder, single episode, unspecified; G47.30 Sleep apnea, unspecified; E66.01 Morbid (severe) obesity due to excess calories; F17.210 Nicotine dependence, cigarettes, uncomplicated; Z79.899 Other long term (current) drug therapy; Z68.41 Body mass index [BMI] 40.0-44.9, adult
CPT/HCPCS: J2250; J2704; J7120

== ENCOUNTER 2019-06-09 13:36 | Emergency (ER) | payer OTHER ==
[~2019-06-09] VITALS: Ht 182.9 cm; Wt 144.2 kg
--- OUTSIDE RECORDS SUMMARY | 2019-06-09 13:40 | XMS ---
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 Care History Medical/Surgical 10/14/2018 [facility] - PATIENT NEXT APT WITH PCP DR ROLDAN ON 12/03/18. PATIENT CAN BE SEEN AT THE WALK IN FOR NON EMERGENT MEDICAL NEEDS. 10/06/2018 [facility] - Patient is currently established with [facility]. If patient is seen in the ED during business hours. Please contact CHWs at [facility]. Care Recommendation: This patient has had 5 or more Emergency Department visits in the last 12 months.\T\nbsp; Patient requires education on the scope and purpose of the ED as an acute care provider not a Primary Care Provider and should not be utilized for chronic conditions.\T\nbsp; These are guidelines and the provider should exercise clinical judgment when providing care. Gui VISIT COUNT (12 MO.) 3 [facility] TOTAL 3 NOTE: Visits indicate total known visits. ED/UCC VISIT TRACKING (12 MO.) 06/09/2019 13:37 [facility] [place] [place] TYPE: Emergency COMPLAINT: - VOMITING 10/13/2018 13:26 [facility] [facility] [place] TYPE: Emergency COMPLAINT: - URINE PROBLEM,TICK BITE DIAGNOSES: - Acquired absence of other specified parts of digestive tract - Nicotine dependence, unspecified, uncomplicated - Anxiety disorder, unspecified - Acquired absence of both cervix and uterus - Other fpc (current) drug therapy - Rash and other nonspecific skin eruption - Dysuria 10/04/2018 15:02 [facility] [place] TYPE: Emergency COMPLAINT: - DIZZINESS,VOMITING,VISION PROBLEMS DIAGNOSES: - Post-traumatic stress disorder, unspecified - Acquired absence of other specified parts of digestive tract - Noninfective gastroenteritis and colitis, unspecified - Nicotine dependence, unspecified, uncomplicated - Nausea with vomiting, unspecified - Acquired absence of both cervix and uterus - Anxiety disorder, unspecified - Other ferry terminal agent (current) drug therapy - Major depressive disorder, single episode, unspecified INPATIENT VISIT TRACKING (12 MO.) No inpatient visits to display in this time frame [email or web address]
[2019-06-09] MEDS ORDERED: HYDROXYZINE HCL25 MG (14:03)
[2019-06-09] MEDS ORDERED: PAXIL40 MG (14:03)
[2019-06-09] MEDS ORDERED: ATIVAN1 MG (14:03)
[2019-06-09] MEDS ORDERED: ZOFRAN4 MG PO (16:23)
[2019-06-09] MEDS ORDERED: PERCOCET 5-3251 EACH PO (16:23)
== END 2019-06-09 16:34 | disposition home or self-care (01) ==
LOC: ED 13:36
DX: R10.32 Left lower quadrant pain (principal); R11.2 Nausea with vomiting, unspecified; F41.9 Anxiety disorder, unspecified; F43.10 Post-traumatic stress disorder, unspecified; F17.200 Nicotine dependence, unspecified, uncomplicated; Z79.899 Other long term (current) drug therapy
CPT/HCPCS: 74177; 80053; 81001; 83690; 83735; 84703; 85025; 99284-25; 99406; J1170; J2405; Q9967

== ENCOUNTER 2019-10-21 17:43 | Emergency (ER) | payer OTHER ==
[~2019-10-21] VITALS: Ht 182.9 cm; Wt 141.5 kg
[~2019-10-21 17:43] MED LIST changes: +ATIVAN1 MG; +HYDROXYZINE HCL25 MG; +PAXIL40 MG; +PERCOCET 5-3251 EACH PO; +ZOFRAN4 MG PO
--- OUTSIDE RECORDS SUMMARY | 2019-10-21 17:46 | XMS ---
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 - Has Care Guidelines - PDMP CARE PROVIDERS LEON ALEJANDRO Internal Medicine: Pulmonary Disease 10/06/2018-Current PHONE: Unknown OMAYRA BALES [facility] Medicine: Sports Medicine 03/10/2018-Current PHONE: Unknown Guidelines [facility] [place] [facility] Date: 06/11/2019 Care Coordination: Currently engaged in mental health services with [employer].\T\nbsp; Please contact [employer] with mental health concerns.\T\nbsp; [place]: [phone]\T\ nbsp; [place]: [phone]. Care History Medical/Surgical 06/11/2019 [facility] Patient saw Dr. Roldan today and is scheduling follow up appt. 10/14/2018 [facility] - PATIENT NEXT APT WITH PCP DR ROLDAN ON 12/03/18. PATIENT CAN BE SEEN AT THE WALK IN FOR NON EMERGENT MEDICAL NEEDS. 10/06/2018 [facility] - Patient is currently established with [facility]. If patient is seen in the ED during business hours. Please contact CHWs at [facility]. Care Recommendation: This patient has had 5 [...] providing care. E.D. VISIT COUNT (12 MO.) 2 [facility]. TOTAL 2 NOTE: Visits indicate total known visits. ED/UCC VISIT TRACKING (12 MO.) 10/21/2019 17:43 [facility] [place] TYPE: Emergency COMPLAINT: - ABDOMINAL PAIN 06/09/2019 13:37 [facility] [place] TYPE: Emergency COMPLAINT: - VOMITING DIAGNOSES: - Nicotine dependence, unspecified, uncomplicated - Post-traumatic stress disorder, unspecified - Anxiety disorder, unspecified - Other manager terminal (current) drug therapy - Left lower quadrant pain - Nausea with vomiting, unspecified INPATIENT VISIT TRACKING (12 MO.) No inpatient visits to display in this time frame [email or web address]
[2019-10-21] MEDS ORDERED: OMEPRAZOLE20 MG PO (18:02)
[2019-10-21] MEDS ORDERED: LISINOPRIL40 MG PO (18:02)
== END 2019-10-21 21:13 | disposition home or self-care (01) ==
LOC: ED 17:43
DX: R10.9 Unspecified abdominal pain (principal); F41.0 Panic disorder [episodic paroxysmal anxiety]; F17.200 Nicotine dependence, unspecified, uncomplicated; Z79.899 Other long term (current) drug therapy
CPT/HCPCS: 74177; 80053; 81001; 83690; 84703; 85025; 96375; 96376; 99284-25; J1170; J2405; J7030

== ENCOUNTER 2020-01-10 09:17 | Emergency (ER) | payer OTHER ==
[~2020-01-10] VITALS: Ht 182.9 cm; Wt 141.5 kg
[~2020-01-10 09:17] MED LIST changes: +LISINOPRIL40 MG PO
--- OUTSIDE RECORDS SUMMARY | 2020-01-10 09:20 | XMS ---
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 Care History Medical/Surgical 06/11/2019 [facility] Patient saw Dr. Roldan today and is scheduling follow up appt. 10/14/2018 [facility] - PATIENT NEXT APT WITH PCP DR ROLDAN ON 12/03/18. PATIENT CAN BE SEEN AT THE WALK IN FOR NON EMERGENT MEDICAL NEEDS. 10/06/2018 [facility] - Patient is currently established with [facility]. If patient is seen in the ED during business hours. Please contact CHWs at [facility]. Care Recommendation: This patient has had 5 [...] providing care. E.D. VISIT COUNT (12 MO.) 3 [facility] H. TOTAL 3 NOTE: Visits indicate total known visits. ED/UCC VISIT TRACKING (12 MO.) 01/10/2020 09:17 [facility] [place] TYPE: Emergency COMPLAINT: - LOWER RIGHT ABD PAIN 10/21/2019 17:43 [facility] [facility] [place] TYPE: Emergency COMPLAINT: - ABDOMINAL PAIN DIAGNOSES: - Panic disorder [episodic paroxysmal anxiety] - Unspecified abdominal pain - Nicotine dependence, unspecified, uncomplicated - Other superintendent container terminal (current) drug therapy 06/09/2019 13:[address] [facility] [facility] [place] TYPE: Emergency COMPLAINT: - VOMITING DIAGNOSES: - Nicotine dependence, unspecified, uncomplicated - Post-traumatic stress disorder, unspecified - Anxiety disorder, unspecified - Other superintendent container terminal (current) drug therapy - Left lower quadrant pain - Nausea with vomiting, unspecified INPATIENT VISIT TRACKING (12 MO.) No inpatient visits to display in this time frame [email or web address]
[2020-01-10] MEDS ORDERED: KLONOPIN0.5 MG PO (09:37)
[2020-01-10] MEDS ORDERED: CHLORPROMAZINE25 MG PO (09:56)
[2020-01-10] MEDS ORDERED: PERCOCET 5-3251 EACH PO (12:10)
== END 2020-01-10 12:20 | disposition home or self-care (01) ==
LOC: ED 09:17
DX: R10.31 Right lower quadrant pain (principal); F41.0 Panic disorder [episodic paroxysmal anxiety]; F17.200 Nicotine dependence, unspecified, uncomplicated; Z79.899 Other long term (current) drug therapy
CPT/HCPCS: 74176; 80053; 81001; 85025; 96361; 96374; 96375; 99284-25; J2270; J2405; J7030

== ENCOUNTER 2020-01-16 09:17 | Emergency (ER) | payer OTHER ==
[~2020-01-16] VITALS: Ht 182.9 cm; Wt 141.5 kg
[~2020-01-16 09:17] MED LIST changes: +CHLORPROMAZINE25 MG PO; +KLONOPIN0.5 MG PO
--- OUTSIDE RECORDS SUMMARY | 2020-01-16 09:20 | XMS ---
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 No recent Security Events currently on file CRITERIA MET - [facility] - Has Care Guidelines - PDMP - [facility] - 2 Visits in 30 Days CARE PROVIDERS LEON ALEJANDRO Internal Medicine: Pulmonary Disease 10/06/2018-Current PHONE: Unknown NII [facility] 03/10/2018-Current PHONE: Unknown Guidelines [facility]: [facility] Guidelines Date: 06/11/2019 Care Coordination: Currently engaged in mental health services with [employer].\T\nbsp; Please contact [employer] with mental health concerns.\T\nbsp; [place]: [phone]\T\ nbsp; Vu: [phone]. Care History Medical/Surgical 01/11/2020 [facility] Spoke to patient.\T\nbsp; She would like a referral from pcp Dr. Quintero for specialist since nobody in ED could determine the source of ongoing abdominal pain. Requested Dr. Quintero reach out to patient. 06/11/2019 [facility] Patient saw Dr. Quintero today and is scheduling follow up appt. 10/14/2018 [facility] - PATIENT NEXT APT WITH PCP DR QUINTERO ON 12/03/18. PATIENT CAN BE SEEN AT THE WALK IN FOR NON EMERGENT MEDICAL NEEDS. [facility] NOTE: Visits indicate total known visits. ED/UCC VISIT TRACKING (12 MO.) [facility]16[facility]2020 [facility] COMPLAINT: - NECK PAIN 01/10/2020 09:[address] [facility] [place] TYPE: Emergency COMPLAINT: - LOWER RIGHT ABD PAIN DIAGNOSES: - Right lower quadrant pain - Other medical resident (current) drug therapy - Nicotine dependence, unspecified, uncomplicated - Panic disorder [episodic paroxysmal anxiety] - Right lower quadrant pain 10/21/2019 17:43 [facility] [place] [facility] TYPE: Emergency COMPLAINT: - ABDOMINAL PAIN DIAGNOSES: - Panic disorder [episodic paroxysmal anxiety] - Unspecified abdominal pain - Nicotine dependence, unspecified, uncomplicated - Other medical resident (current) drug therapy 06/09/2019 13:37 [facility] [place] TYPE: Emergency COMPLAINT: - VOMITING DIAGNOSES: - Nicotine dependence, unspecified, uncomplicated - Post-traumatic stress disorder, unspecified - Anxiety disorder, unspecified - Other medical resident (current) drug therapy - Left lower quadrant pain - Nausea with vomiting, unspecified INPATIENT VISIT TRACKING (12 MO.) No inpatient visits to display in this time frame [email or web address]
[2020-01-16] MEDS ORDERED: CYCLOBENZAPRINE10 MG PO (09:59)
== END 2020-01-16 10:11 | disposition home or self-care (01) ==
LOC: ED 09:17
DX: M43.6 Torticollis (principal); F41.0 Panic disorder [episodic paroxysmal anxiety]; F43.10 Post-traumatic stress disorder, unspecified; F17.200 Nicotine dependence, unspecified, uncomplicated; Z79.899 Other long term (current) drug therapy
CPT/HCPCS: 99283

== ENCOUNTER 2020-01-16 12:44 | Emergency (ER) | payer OTHER ==
[~2020-01-16] VITALS: Ht 182.9 cm; Wt 141.5 kg
[~2020-01-16 12:44] MED LIST changes: +CYCLOBENZAPRINE10 MG PO
--- OUTSIDE RECORDS SUMMARY | 2020-01-16 12:46 | XMS ---
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 No recent Security Events currently on file CRITERIA MET - [facility] - Has Care Guidelines - PDMP - [facility] - 2 Visits in 30 Days CARE PROVIDERS LEON ALEJNADRO Internal Medicine: Pulmonary Disease 10/06/2018-Current PHONE: Unknown NII [facility] 03/10/2018-Current PHONE: Unknown [facility]: [facility] Care Coordination: Currently engaged in mental health services with [employer].\T\nbsp; Please contact [employer] with mental health concerns.\T\nbsp; [place]: [phone]\T\ nbsp; Vu: [phone]. Care History Medical/Surgical 01/11/2020 [facility] Spoke to patient.\T\nbsp; She would like a referral from pcp Dr. Quintero for specialist since nobody in ED could determine the source of ongoing abdominal pain. Requested Dr. Quintero reach out to patient. 06/11/2019 [facility] Patient saw Dr. Quintero today and is scheduling follow up appt. 10/14/2018 [facility] - PATIENT NEXT APT WITH PCP DR QUINTERO ON 12/03/18. PATIENT CAN BE SEEN AT THE WALK IN FOR NON EMERGENT MEDICAL NEEDS. Gui VISIT COUNT (12 MO.) 5 [facility] TOTAL 5 NOTE: Visits indicate total known visits. ED/UCC VISIT TRACKING (12 MO.) 01/16/2020 12:44 [facility] [place] TYPE: Emergency COMPLAINT: - NECK PAIN 01/16/2020 09:[address] [facility] [place] TYPE: Emergency COMPLAINT: - NECK PAIN 01/10/2020 09:17 [facility] [place] [facility] TYPE: Emergency COMPLAINT: - LOWER RIGHT ABD PAIN DIAGNOSES: - Right lower quadrant pain - Other group home (current) drug therapy - Nicotine dependence, unspecified, uncomplicated - Panic disorder [episodic paroxysmal anxiety] - Right lower quadrant pain 10/21/2019 17:43 [facility] [place] [place] TYPE: Emergency COMPLAINT: - ABDOMINAL PAIN DIAGNOSES: - Panic disorder [episodic paroxysmal anxiety] - Unspecified abdominal pain - Nicotine dependence, unspecified, uncomplicated - Other group home (current) drug therapy 06/09/2019 13:37 [facility] [place] [place] TYPE: Emergency COMPLAINT: - VOMITING DIAGNOSES: - Nicotine dependence, unspecified, uncomplicated - Post-traumatic stress disorder, unspecified - Anxiety disorder, unspecified - 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
== END 2020-01-16 16:09 | disposition home or self-care (01) ==
LOC: ED 12:44
DX: M54.2 Cervicalgia (principal); F41.0 Panic disorder [episodic paroxysmal anxiety]; F43.10 Post-traumatic stress disorder, unspecified; F17.200 Nicotine dependence, unspecified, uncomplicated; Z79.899 Other long term (current) drug therapy
CPT/HCPCS: 70491; 80053; 85025; 85651; 96361; 99284-25; J1170; J1885; J7030; Q9967

== ENCOUNTER 2020-03-22 17:39 | Emergency (ER) | payer OTHER ==
[~2020-03-22] VITALS: Ht 182.9 cm; Wt 159.1 kg
[~2020-03-22 17:39] MED LIST changes: +NORCO 7.5-3251 EACH PO
--- OUTSIDE RECORDS SUMMARY | 2020-03-22 17:42 | XMS ---
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 Care History Medical/Surgical 02/19/[address] [facility] No imaging per ED provider.\T\nbsp; Patient has scheduled visit with PCP Dr. Roldan on 04/04/2020.\T\nbsp; Left message with household member to have patient call PCP if she needs to be seen sooner than 04/04/2020. 01/18/[address] [facility] Patient has follow up with Dr. Roldan on 02/10/2020 for referral for specialist. 01/11/[address] [facility] Spoke to patient.\T\nbsp; She would like a referral from pcp Dr. Roldan for specialist since nobody in ED could determine the source of ongoing abdominal pain. Requested Dr. Roldan reach out to sebastian. [facility]i [facility] MO.) [facility] NOTE: Visits indicate total known visits. ED/UCC VISIT TRACKING (12 MO.) 03[facility]22[facility]2020 17[facility] COMPLAINT: - ABDOMINAL PAIN 02/18/2020 09:18 [facility] [place] TYPE: Emergency COMPLAINT: - FALL, LOWER BACK PAIN DIAGNOSES: - Fall on same level from slipping, tripping and stumbling with - Post-traumatic stress disorder, unspecified - Other emt intermediate (current) drug therapy - Nicotine dependence, unspecified, uncomplicated - Anxiety disorder, unspecified - Contusion of lower back and pelvis, initial encounter 01/16/2020 12:44 [facility] [place] TYPE: Emergency COMPLAINT: - NECK PAIN DIAGNOSES: - Panic disorder [episodic paroxysmal anxiety] - Cervicalgia - Other jail (current) drug therapy - Nicotine dependence, unspecified, uncomplicated - Post-traumatic stress disorder, unspecified 01/16/2020 09:17 [facility] [place] TYPE: Emergency COMPLAINT: - NECK PAIN DIAGNOSES: - Cervicalgia - Torticollis - Post-traumatic stress disorder, unspecified - Other jail (current) drug therapy - Nicotine dependence, unspecified, uncomplicated - Panic disorder [episodic paroxysmal anxiety] 01/10/2020 09:[address] [facility] [address] [facility] [place] TYPE: Emergency COMPLAINT: - LOWER RIGHT ABD PAIN DIAGNOSES: - Right lower quadrant pain - Other emt intermediate (current) drug therapy - Nicotine dependence, unspecified, uncomplicated - Panic disorder [episodic paroxysmal anxiety] - Right lower quadrant pain 10/21/2019 17:43 [facility] Leon[facility] HConrado [facility] [place] TYPE: Emergency COMPLAINT: - ABDOMINAL PAIN DIAGNOSES: - Panic disorder [episodic paroxysmal anxiety] - Unspecified abdominal pain - Nicotine dependence, unspecified, uncomplicated - Other jail (current) drug therapy 06/09/2019 13:37 [facility] Leonidas HConrado [facility] [place] TYPE: Emergency COMPLAINT: - VOMITING DIAGNOSES: - Nicotine dependence, unspecified, uncomplicated - Post-traumatic stress disorder, unspecified - Anxiety disorder, unspecified - Other emt intermediate (current) drug therapy - Left lower quadrant pain - Nausea with vomiting, unspecified INPATIENT VISIT TRACKING (12 MO.) No inpatient visits to display in this time frame [email or web address]
--- NOTE | 2020-03-23 17:18 | EKG ---
[facility] [address] [place], [place] [address] Signed Normal sinus rhythm Prolonged QT Abnormal ECG When compared with ECG of 03-DEC-2018 16:26, ST no longer elevated in Inferior leads Confirmed by SUNI FREITAS DO ([id number]) on 03/23/2020 5:18:46 PM Electronically Signed By: SUNI FREITAS DO 03/23/20 1718 PATIENT NAME: OWEN ATKINS Electrocardiogram DATE OF : 75 PHYSICIAN: SUNI FREITAS DO REPORT #: [id number] REPORT IS CONFIDENTIAL AND NOT TO BE RELEASED WITHOUT AUTHORIZATION
== END 2020-03-22 21:34 | disposition home or self-care (01) ==
LOC: ED 17:39
DX: R10.30 Lower abdominal pain, unspecified (principal); F41.9 Anxiety disorder, unspecified; F43.10 Post-traumatic stress disorder, unspecified; F17.200 Nicotine dependence, unspecified, uncomplicated; Z79.899 Other long term (current) drug therapy
CPT/HCPCS: 74177; 80053; 81001; 83690; 83735; 84484; 85025; 93005; 93010; 96374; 96375; 99284-25; J1170; J1885; J2405; Q9967

== ENCOUNTER 2020-05-02 16:09 | Emergency (ER) | payer OTHER ==
[~2020-05-02] VITALS: Ht 182.9 cm; Wt 159.1 kg
--- OUTSIDE RECORDS SUMMARY | 2020-05-02 16:12 | XMS ---
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 Care History Medical/Surgical 02/19/2020 [facility] No imaging per ED provider.\T\nbsp; Patient has scheduled visit with PCP Dr. Roldan on 04/04/2020.\T\nbsp; Left message with household member to have patient call PCP if she needs to be seen sooner than 04/04/2020. 01/18/2020 [facility] Patient has follow up with Dr. Roldan on 02/10/2020 for referral for specialist. 01/11/2020 [facility] Spoke to patient.\T\nbsp; She would like a referral from pcp Dr. Roldan for specialist since nobody in ED could determine the source of ongoing abdominal pain. Requested Dr. Roldan reach out to sebastian. Gui VISIT COUNT (12 MO.) 8 [facility] TOTAL 8 NOTE: Visits indicate total known visits. ED/UCC VISIT TRACKING (12 MO.) [facility]02/2020 16:10 [facility] COMPLAINT: - ABNORMAL LAB RESULTS 03/22/2020 17:40 [facility] [place] TYPE: Emergency COMPLAINT: - LOWER ABDOMINAL PAIN DIAGNOSES: - Lower abdominal pain, unspecified - Other care home (current) drug therapy - Nicotine dependence, unspecified, uncomplicated - Lower abdominal pain, unspecified - Unspecified abdominal pain - Anxiety disorder, unspecified - Post-traumatic stress disorder, unspecified 02/18/2020 09:18 [facility] [place] TYPE: Emergency COMPLAINT: - FALL, LOWER BACK PAIN DIAGNOSES: - Fall on same level from slipping, tripping and stumbling without subsequent striking against object, initial encounter - Post-traumatic stress disorder, unspecified - 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 - Nicotine dependence, unspecified, uncomplicated - Anxiety disorder, unspecified - Contusion of lower back and pelvis, initial encounter 01/16/2020 12:44 [facility] [place] TYPE: Emergency COMPLAINT: - NECK PAIN DIAGNOSES: - Panic disorder [episodic paroxysmal anxiety] - Cervicalgia - 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 - Nicotine dependence, unspecified, uncomplicated - Post-traumatic stress disorder, unspecified 01/16/2020 09:17 [facility] [place] TYPE: Emergency COMPLAINT: - NECK PAIN DIAGNOSES: - Cervicalgia - Torticollis - Post-traumatic stress disorder, unspecified - Other care home (current) drug therapy - Nicotine dependence, unspecified, uncomplicated - Panic disorder [episodic paroxysmal anxiety] 01/10/2020 09:17 [facility] [place] TYPE: Emergency COMPLAINT: - LOWER RIGHT ABD PAIN DIAGNOSES: - Right lower quadrant pain - Other care home (current) drug therapy - Nicotine dependence, unspecified, uncomplicated - Panic disorder [episodic paroxysmal anxiety] - Right lower quadrant pain 10/21/2019 17:43 [facility] [place] TYPE: Emergency COMPLAINT: - ABDOMINAL PAIN DIAGNOSES: - Panic disorder [episodic paroxysmal anxiety] - Unspecified abdominal pain - Nicotine dependence, unspecified, uncomplicated - 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 [facility] [place] TYPE: Emergency COMPLAINT: - VOMITING DIAGNOSES: - Nicotine dependence, unspecified, uncomplicated - Post-traumatic stress disorder, unspecified - Anxiety disorder, unspecified - Other care home (current) drug therapy - Left lower quadrant pain - Nausea with vomiting, unspecified INPATIENT VISIT TRACKING (12 MO.) No inpatient visits to display in this time frame [email or web address]
== END 2020-05-02 18:24 | disposition left against medical advice (07) ==
LOC: ED 16:09
DX: Z53.21 Procedure and treatment not carried out due to patient leaving prior to being seen by health care provider (principal)
CPT/HCPCS: 80053; 81001; 84703; 85025

== ENCOUNTER 2020-05-07 13:30 | Emergency (ER) | payer OTHER ==
[~2020-05-07] VITALS: Ht 182.9 cm; Wt 151.2 kg
--- OUTSIDE RECORDS SUMMARY | 2020-05-07 13:32 | XMS ---
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 CRITERIA MET - 6 ED Visits in 6 Months - [facility] - Has Care Guidelines - PDMP - [facility] - 2 Visits in 30 Days CARE PROVIDERS LEON ALEJANDRO Internal Medicine: Pulmonary Disease 10/06/2018-Current PHONE: Unknown OMAYRA BALES Family Medicine: Sports Medicine 03/10/2018-Current PHONE: Unknown [facility] Guidelines Date: 06/11/2019 Care Coordination: Currently engaged in mental health services with [facility].\T\nbsp; Please contact [facility] with mental health concerns.\T\nbsp; [place]: [phone]\T\ nbsp; [place]: [phone]. Care History Medical/Surgical 02/19/2020 [facility] No imaging per ED provider.\T\nbsp; Patient has scheduled visit with PCP Dr. Roldan on 04/04/2020.\T\nbsp; Left message with household member to have patient call PCP if she needs to be seen sooner than 04/04/2020. 01/18/2020 [facility] Patient has follow up with Dr. Roldan on 02/10/2020 for referral for specialist. 01/11/2020 [facility] Spoke to patient.\T\nbsp; She would like a referral from pcp Dr. Roldan for specialist since nobody in ED could determine the source of ongoing abdominal pain. Requested Dr. Roldan reach out to patient. Gui VISIT COUNT (12 MO.) 9 [facility]. TOTAL 9 NOTE: Visits indicate total known visits. ED/C VISIT TRACKING (12 MO.) 05/07/2020 13:30 [facility] [place] TYPE: Emergency COMPLAINT: - FELL INJURED BACK 05/02/2020 16:10 [facility] [place] TYPE: Emergency COMPLAINT: - ABNORMAL LAB RESULTS DIAGNOSES: - Procedure and treatment not carried out due to patient leaving prior to being seen by health care provider 03/22/2020 17:40 [facility] [place] TYPE: Emergency COMPLAINT: - LOWER ABDOMINAL PAIN DIAGNOSES: - Lower abdominal pain, unspecified - Other group home (current) drug therapy [...] - Post-traumatic stress disorder, unspecified - Other director long term care (current) drug therapy - Nicotine dependence, unspecified, uncomplicated - Anxiety disorder, unspecified - Contusion of lower back and pelvis, initial encounter 01/16/2020 12:44 [facility] [place] [facility] TYPE: Emergency COMPLAINT: - NECK PAIN DIAGNOSES: - Panic disorder [episodic paroxysmal anxiety] - Cervicalgia - Other group home (current) drug therapy - Nicotine dependence, unspecified, uncomplicated - Post-traumatic stress disorder, unspecified 01/16/2020 09:17 [facility] [place] [facility] TYPE: Emergency COMPLAINT: - NECK PAIN DIAGNOSES: - Cervicalgia - Torticollis - Post-traumatic stress disorder, unspecified - Other group home (current) drug therapy - Nicotine dependence, unspecified, uncomplicated - Panic disorder [episodic paroxysmal anxiety] 01/10/2020 09:17 [facility] [place] TYPE: Emergency COMPLAINT: - LOWER [...] unspecified - Anxiety disorder, unspecified - Other director long term care (current) drug therapy - Left lower quadrant pain - Nausea with vomiting, unspecified INPATIENT VISIT TRACKING (12 MO.) No inpatient visits to display in this time frame [email or web address]
[2020-05-07] MEDS ORDERED: SPIRONOLACTONE25 MG PO (13:47)
[2020-05-07] MEDS ORDERED: NORCO 7.5-3251 EACH PO (14:24)
== END 2020-05-07 14:31 | disposition home or self-care (01) ==
LOC: ED 13:30
DX: S39.92XA Unspecified injury of lower back, initial encounter (principal); R03.0 Elevated blood-pressure reading, without diagnosis of hypertension; W00.0XXA Fall on same level due to ice and snow, initial encounter; F41.9 Anxiety disorder, unspecified; F43.10 Post-traumatic stress disorder, unspecified; F17.200 Nicotine dependence, unspecified, uncomplicated; Z79.899 Other long term (current) drug therapy
CPT/HCPCS: 99283